=== PATIENT | female | born 1950 | race Caucasian/White ===

== ENCOUNTER 2017-11-27 12:37 | Outpatient (CLI) | payer MEDICARE ==
--- NOTE | 2017-11-27 13:59 | RAD ---
2 VIEWS RIGHT KNEE: Date: 11/27/17 INDICATION: Right knee pain. COMPARISON: None. FINDINGS: There is mild degenerative arthrosis involving the right knee. No acute fracture or subluxation is ev ident. IMPRESSION: No acute osseous abnormality. POS: [facility]
== END 2017-11-27 12:38 | disposition home or self-care (01) ==
LOC: RAD 12:37 → BICRAD 12:38
PROVIDERS: ATTEND Family Medicine
DX: M25.561 Pain in right knee (principal)

== ENCOUNTER 2018-02-26 13:30 | Outpatient (CLI) | payer MEDICARE ==
--- NOTE | 2018-02-26 15:52 | MRI ---
LUMBAR SPINE MRI NONCONTRAST: INDICATION: Low back pain with lumbar radiculopathy. FINDINGS: There is incidental note of a Schmorl's node at the superior end plate of T12. No acute marrow edema . Conus medullaris terminates at th eL1-2 level. Incidental note of a cyst at the right kidney. L5-S1: There is a disk-osteophyte with mild effacement of the ventral thecal sac. No significant ri ght foraminal narrowing. There is mild left foraminal stenosis due to asymmetric left degenerative f acet hypertrophy. L4-5: Moderate central canal stenosis as a result of broad-based disk-osteophyte. There is mild ag ateral neural foraminal narrowing. L3-4: Moderate central canal stenosis is present with crowding of the bilateral traversing L4 nerve roots. Mild bilateral neural foraminal narrowing present. L2-3: There is mild to moderate central canal stenosis due to broad-based disk-osteophyte. No high- grade neural foraminal compromise. L1-2: Mild narrowing of the central due to disk-osteophyte formation. There is no high-grade neural foraminal stenosis. Multilevel bilateral mild to moderate degenerative facet hypertrophy is present throughout the lumbar spine. IMPRESSION: Multilevel degenerative change of the lumbar spine is present, as outlined above. POS: [facility]
== END 2018-02-26 13:31 | disposition home or self-care (01) ==
LOC: BICMRI 13:30
PROVIDERS: ATTEND Family Medicine
DX: M47.896 Other spondylosis, lumbar region (principal)
CPT/HCPCS: 72148

== ENCOUNTER 2018-08-23 12:46 | Observation (INO) | payer MEDICARE ==
--- NOTE | 2018-08-23 13:54 | CT ---
CT Brain WO Con: 08/23/2018 1:29 PM CLINICAL HISTORY: Fall. IMAGING TECHNIQUE: Multiple CT images were obtained of the brain without IV contrast. COMPARISON: October 21, 2015 FINDINGS: Infarct: No acute infarct evident. Hemorrhage: None.. Hydrocephalus: None.. Basal cisterns: Normal.. Cerebral parenchyma: Stable mild chronic small vessel white matter ischemic change.. Midline shift: None.. Cerebellum: Normal. Brainstem: Normal. OTHER: Calvarium: Intact.. Visualized Paranasal sinuses: Clear.. Extracranial soft tissues:Normal. IMPRESSION: No acute intracranial abnormality.
--- NOTE | 2018-08-23 14:17 | RAD ---
Chest AP view INDICATION: Fall COMPARISON: October 21, 2015 FINDINGS: Lungs:The lungs are clear Cardiac silhouette pulmonary vasculature:The cardiomediastinal silhouette appears within normal limit s. Pleural spaces:No pleural effusion or pneumothorax is demonstrated. Upper abdomen:No abnormality seen. Osseous structures: No acute osseous abnormality. Additional findings:None. IMPRESSION: No acute cardiopulmonary abnormality.
--- NOTE | 2018-08-23 14:18 | RAD ---
EXAM: XR Pelvis AP STANDARD DATE: 08/23/2018 1:29 PM INDICATION: Fall COMPARISON: None. FINDING: There is moderate degenerative arthrosis of both hips. There is diffuse osteopenia. No acut e fracture or subluxation demonstrated. IMPRESSION:No acute fracture or subluxation demonstrated.
[2018-08-23 14:31] LABS: #Eosinphils 0.1 thou/uL (0.0-0.7); #Lymphocytes 1.6 thou/uL (1.20-3.40); #Monocytes 0.8 thou/uL (0.11-0.59); #Neutrophils 8.4 thou/uL (1.40-6.50); %Basophils 0.4 % (0.0-1.0); %Eosinophils 0.7 % (0.0-10.0); %Lymphocytes 14.4 % (21.0-51.0); %Monocytes 6.9 % (0.0-10.0); %Neutrophils 77.6 % (42.0-75.0); Hemoglobin 12.7 g/dL (12.0-16.0); Mean Corpuscular HGB CONC 31.6 g/dL (32.0-36.0); Mean Corpuscular Hemoglobin 29.5 pg (27.0-31.0); Mean Corpuscular Volume 93.2 fL (78.0-98.0); Mean Platelet Volume 6.5 fL (7.4-10.4); Platelet Count 262 thou/uL (130-400); RBC Distribution Width 12.1 % (11.5-14.5); Red Blood Cell (RBC) Count 4.31 mill/uL (4.20-5.40); White Blood Cell (WBC) Count 10.8 thou/uL (4.8-10.8)
[2018-08-23] MEDS ORDERED: Ondansetron PF 4 MG/2 ML Vial ONE ×2 (14:32→14:35)
[2018-08-23] MEDS ORDERED: Fentanyl 100 MCG/2 ML VIAL ONE ×2 (14:33)
[2018-08-23 14:47] LABS: ALT (SGPT) 18 U/L (8-55); AST (SGOT) 22 U/L (5-34); Alkaline Phosphatase 48 U/L (40-150); Anion Gap 12 mmol/L (10-20); BUN (Urea Nitrogen) 10 mg/dL (9.8-20.1); Bilirubin, Total 0.9 mg/dL (0.2-1.2); CK (CPK) 72 U/L (29-168); Calc. Creatinine Clearance 0 mL/min (70-130); Calcium 8.8 mg/dL (7.8-10.44); Carbon Dioxide 30 mmol/L (23-31); Chloride 101 mmol/L (98-107); Estimated GFR-MDRD 87; Globulin 2.1 g/dL (2.4-3.5); Glucose 94 mg/dL (80-115); Potassium 3.7 mmol/L (3.5-5.1); Protein, Total 6.1 g/dL (6.0-8.3); Sodium 139 mmol/L (136-145)
[2018-08-23] MEDS ORDERED: methylPREDNISolone Sod Succ/PF 125 MG/2 ML VIAL ONE (15:26)
[2018-08-23] MEDS ORDERED: Metoclopramide HCl 10 MG/2 ML VIAL ONE (15:27)
[2018-08-23] MEDS ORDERED: diphenhydrAMINE 50 MG/ML VIAL ONE (15:27)
[2018-08-23 18:00] LABS: Troponin I Less than 0.010 ng/mL (< 0.028)
[2018-08-23 18:18] VITALS: BMI 26.0
[2018-08-23] MEDS ORDERED: Ondansetron PF 4 MG/2 ML Vial IVP PRN (20:39)
[2018-08-23] MEDS ORDERED: Ondansetron ODT 4 MG TAB PO PRN (20:39)
[2018-08-23] MEDS ORDERED: Dextrose 5% in Water 1,000 ML IV PRN (20:39)
[2018-08-23] MEDS ORDERED: Dextrose 50% Abboject 50 ML SYRINGE SLOW IVP PRN (20:39)
--- NOTE | 2018-08-23 22:19 | ULT ---
BILATERAL CAROTID DUPLEX ULTRASOUND: HISTORY: Syncope TECHNIQUE: Grayscale, color-flow and spectral Doppler ultrasound imaging of the extracranial carotid artery syst ems was performed bilaterally. FINDINGS: Mild plaque formation. The peak systolic velocity in the right ICA measures 69 cm/s. The peak systolic velocity in the left ICA measures 67 cm/s. Vertebral flow: antegrade, bilaterally. IMPRESSION: No hemodynamically significant stenosis of Both ICAs.
[2018-08-23] MEDS: HYDROcodone/Acetaminophen 10/325 mg Tablet PO PRN (23:44)
[2018-08-23] MEDS: Famotidine 20 MG TAB PO SCH (23:44)
[2018-08-23] MEDS ORDERED: rOPINIRole HCl 1 MG TAB PO SCH (23:45)
--- NOTE | 2018-08-24 00:56 | HP ---
PRIMARY CARE PHYSICIAN: Cintia Garrison MD CHIEF COMPLAINT: Syncope. HISTORY OF PRESENT ILLNESS: Ms. Chase is a 68-year-old female, with past medical history of hypertension, hypoglycemia, hypothyroidism, osteoarthritis, and she had presented to [facility] earlier today after she experienced a syncopal episode at home. She states that she was standing there and all of a sudden she had found herself on the ground, she states that she has similar episodes over the last 5 to 6 years. She states that she has been worked up for this in the past and had denied any findings. She had denied any fever, chills, any chest pain, palpitations, shortness of breath, abdominal pain, nausea, vomiting, or any change in her stool. She states that this is the second time that she has fallen in the last week. She states this time she had fallen and hit her head, from which she has a noticeable size hematoma over the left eye. During her initial workup in the emergency department, brain CT showed mild stable chronic small-vessel white matter changes; however, no acute intracranial abnormality was noted. Portable chest x-ray was performed and showed no acute cardiopulmonary abnormality. She also complained of left hip pain. Therefore, a pelvic x-ray was done and showed no acute fracture or subluxation demonstrated. The patient's lab work was essentially unremarkable. Troponin was so far negative x2. She had remained in normal sinus rhythm on the monitor. She also had orthostatic vital signs checked and were unremarkable. REVIEW OF SYSTEMS: All other systems reviewed and found to be negative unless mentioned in the HPI. PAST MEDICAL HISTORY: Hypoglycemia, hypertension, hypothyroidism, status post thyroid cancer and radiation, osteoarthritis. PAST SURGICAL HISTORY: Gastric bypass, hiatal hernia surgery, cholecystectomy, thyroidectomy. PSYCHIATRIC HISTORY: Includes depression. SOCIAL HISTORY: The patient denies any alcohol, tobacco, or illicit drug use. KNOWN ALLERGIES: Morphine and NSAIDs. CURRENT HOME MEDICATIONS: 1. Omeprazole 20 mg oral daily. 2. Gabapentin 600 mg p.o. at bedtime. 3. Hydrocodone/acetaminophen 10/325 mg oral t.i.d. 4. Levothyroxine 112 mcg p.o. daily. 5. Amitiza p.o. daily. 6. Requip 1 mg p.o. q.p.m. 7. VESIcare 10 mg p.o. daily. 8. Venlafaxine 150 mg p.o. daily. PHYSICAL EXAMINATION: VITAL SIGNS: Blood pressure 133/63, pulse 93, respirations 16, temperature 98.9 degrees Fahrenheit, and O2 saturations 96% on room air. GENERAL: The patient is awake, alert, and oriented x3. She is currently lying comfortably in bed and in no acute distress at this time. Her is at bedside. HEENT: Normocephalic. Bruising noted above the left eye . Pupils are round and reactive to light. Extraocular muscles intact. Moist mucous membranes noted. NECK: Soft, supple. Trachea midline. CARDIOVASCULAR: Positive S1 and S2. Regular rate and rhythm. No murmur auscultated. RESPIRATORY: Clear to auscultation bilaterally. No wheezes, rales, or rhonchi. ABDOMEN: Soft, nontender. Bowel sounds present. MUSCULOSKELETAL: Strength 5+ bilaterally upper and lower extremities. Moves all extremities equal. No edema noted. The patient is slightly tender to palpation over left hip; however, this is just mild. NEUROLOGIC: Cranial nerves 2 through 12 grossly intact. No focal deficits noted. Speech intact and normal. Gait not assessed. SKIN: Warm, dry, and intact. Bruising noted to the left eye as stated above. PSYCHIATRIC: Good mood and affect. LABORATORY DATA: WBC 10.8, RBC 4.31, hemoglobin 12.7, platelet 262. Sodium 139, potassium 3.7, creatinine 0.68, estimated GFR 87, glucose 94. Troponin less than 0.010 x2. BNP 75.1. DIAGNOSTIC IMAGING: Portable chest x-ray showed no acute cardiopulmonary abnormality. CT of brain without contrast showed no acute intracranial abnormality and did show some stable mild chronic small-vessel white matter ischemic changes. X-ray pelvis showed no acute fracture or subluxation demonstrated. ASSESSMENT AND PLAN: 1. Syncope and fall, the patient will undergo further testing which includes an MRI of the brain, carotid Doppler, and an echocardiogram, Cardiology Services will be consulted as well for possible Holter monitor prior to discharge. The patient's orthostatic vital signs are unremarkable. 2. Hypothyroidism. Continue home dose of levothyroxine. We will check a TSH and free T4. 3. History of hypoglycemia. The patient will have frequent Accu-Cheks during the hospital course. 4. History of gastric bypass surgery. For this reason, we will check a folic acid, magnesium, vitamin B12, and other electrolytes. 5. Code status, full code. 6. Deep venous thrombosis and gastrointestinal prophylaxis. 7. Surrogate decision maker is her spouse, Alberto Caceres. DISPOSITION: Pending further workup and clinical findings. Job ID: [id number]
[2018-08-24 05:16] LABS: #Lymphocytes 1.3 thou/uL (1.20-3.40); #Monocytes 0.4 thou/uL (0.11-0.59); #Neutrophils 8.8 thou/uL (1.40-6.50); %Basophils 0.1 % (0.0-1.0); %Monocytes 3.4 % (0.0-10.0); %Neutrophils 84.4 % (42.0-75.0); Hemoglobin 12.4 g/dL (12.0-16.0); Mean Corpuscular HGB CONC 35.7 g/dL (32.0-36.0); Mean Corpuscular Hemoglobin 32.7 pg (27.0-31.0); Mean Corpuscular Volume 91.5 fL (78.0-98.0); Mean Platelet Volume 6.5 fL (7.4-10.4); Platelet Count 237 thou/uL (130-400); RBC Distribution Width 13.2 % (11.5-14.5); Red Blood Cell (RBC) Count 3.81 mill/uL (4.20-5.40); White Blood Cell (WBC) Count 10.4 thou/uL (4.8-10.8)
[2018-08-24 05:35] LABS: Anion Gap 10 mmol/L (10-20); BUN (Urea Nitrogen) 9 mg/dL (9.8-20.1); Calc. Creatinine Clearance 114 mL/min (70-130); Calcium 8.2 mg/dL (7.8-10.44); Carbon Dioxide 28 mmol/L (23-31); Chloride 105 mmol/L (98-107); Estimated GFR-MDRD Greater than 90; Glucose 139 mg/dL (80-115); Magnesium 2.2 mg/dL (1.6-2.6); Potassium 3.3 mmol/L (3.5-5.1); Sodium 140 mmol/L (136-145)
[2018-08-24] MEDS: Acetaminophen 325 MG TAB PO PRN ×2 (05:44→13:35)
[2018-08-24 05:56] LABS: Free T4 (Free Thyroxine) 1.27 ng/dL (0.70-1.48); Thyroid Stimulating Hormone Less than 0.0025 uIU/mL (0.35-4.94)
[2018-08-24] MEDS ORDERED: Levothyroxine Sodium 112 MCG TAB PO SCH (06:00)
[2018-08-24 06:09] LABS: Folate (Folic Acid) 9.1 ng/mL (7.0-31.4)
[2018-08-24] MEDS ORDERED: Venlafaxine HCl XR 150 MG CAP PO SCH (09:00)
[2018-08-24] MEDS ORDERED: Enoxaparin Sodium 40 MG/0.4 ML SYRINGE SC SCH (09:00)
[2018-08-24] MEDS ORDERED: Lubiprostone 24 MCG CAP PO SCH (09:00)
[2018-08-24] MEDS ORDERED: Trospium 20 MG TAB PO SCH (09:00)
[2018-08-24] MEDS: HYDROcodone/Acetaminophen 10/325 mg Tablet PO PRN (09:13)
[2018-08-24] MEDS: Famotidine 20 MG TAB PO SCH (09:13)
[2018-08-24] MEDS ORDERED: Potassium Chloride 20 MEQ TAB PO SCH (09:45)
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
[2018-08-24] MEDS ORDERED: levETIRAcetam 500 MG TAB PO SCH ×2 (11:00→21:00)
--- NOTE | 2018-08-24 11:19 | CON ---
DATE OF CONSULTATION: 08/24/2018 CONSULTING PHYSICIAN: Hospitalist Service. IMPRESSION: Probable seizures. PLAN: 1. Keppra 500 mg twice a day. 2. Office followup. HISTORY OF PRESENT ILLNESS: Ms. Chase is a 68-year-old white female, who reports having history of numerous episodes where she loses consciousness briefly. She has no prodromal sensation or aura. She is awoke on the floor and had no significant postictal confusion. She was worked up in [place] by a neurologist and thought to have focal seizures. She was started on Depakote, but did not tolerate it. She subsequently moved and was lost to follow up. She has gone as long as a year or more with between episodes. She had 2 recently, which is quite unusual. She was subsequently admitted for further evaluation. Her MRI of the brain is unremarkable. She has otherwise reports of intermittent spells, where her hands will jerk violently. She has also had some hypoglycemic episodes, which she has never lost consciousness from. PAST MEDICAL HISTORY: Otherwise negative. ALLERGIES: MORPHINE, NONSTEROIDALS. PAST SURGICAL HISTORY: Gastric bypass. MEDICATIONS: Medication list was reviewed. REVIEW OF SYSTEMS: Ten-system review of systems is otherwise unremarkable. PHYSICAL EXAMINATION: VITAL SIGNS: Blood pressure 113/71, pulse 100, respirations 14, saturations 98%. HEENT: Pupils equal. Conjunctivae clear. Oropharynx clear. Cranium, normocephalic and atraumatic. NECK: Supple. No lymphadenopathy. EXTREMITIES: No cyanosis or edema. NEUROLOGIC: She is alert and appropriate. Her speech is fluent and clear. Cranial nerves are intact. Motor exam showed good certified physical therapist assistant strength bilaterally. There is no tremor or dysmetria. Sensation is intact to touch. She can walk independently. SUMMARY: A 68-year-old woman with history of numerous episodes, where she suddenly loses consciousness. She has no cardiac history or metabolic issues that would produce a loss of consciousness. I strongly suspect that these are seizures. I will go ahead and start her on anticonvulsant therapy and follow up with her in the office. Job ID: [id number]
[2018-08-24 13:04] VITALS: BP 122/56; TEMP 97.7
--- NOTE | 2018-08-24 13:04 | MRI ---
MRI brain without IV contrast: Multiplanar and multisequential imaging of brain obtained according to protocol. INDICATIONS: Syncope. Loss of consciousness. Transient amnesia. COMPARISON: 11/03/2015 MRI of brain FINDINGS: Ventricles have normal size shape and position. No evidence of restricted diffusion. Mild chronic ischemic white matter change noted. Findings are stable from prior exam. No evidence of mass or edema. Intracranial internal carotid arteries, proximal cerebral arteries, and basilar arteries show normal flow voids. Dural venous sinuses appear patent. Visualized paranasal sinuses and mastoids appear clear. Orbits appear unremarkable. Bony calvarium and soft tissues of the scalp appear unremarkable. IMPRESSION: Mild chronic ischemic white matter change, stable from prior exam. No acute finding.
[2018-08-24] MEDS ORDERED: Gabapentin 300 MG CAP PO SCH (21:00)
[2018-08-24] MEDS ORDERED: rOPINIRole HCl 1 MG TAB PO SCH (21:00)
[2018-08-25] MEDS ORDERED: Non-Formulary Item 1 EACH (Omeprazole [Omeprazole] 20 MG) PO SCH (09:00)
--- NOTE | 2018-08-30 17:10 | EKG ---
Test Reason : Blood Pressure : / mmHG Vent. Rate : 089 BPM Atrial Rate : 089 BPM P-R Int : 154 ms QRS Dur : 086 ms QT Int : 406 ms P-R-T Axes : 036 -35 051 degrees QTc Int : 493 ms Normal sinus rhythm Left axis deviation Abnormal ECG Confirmed by VIRIDIANA ESTEBAN, YANETH ([id number]), city editor CARLA ARCE ([id number]) on 08/30/2018 5:09:42 PM Referred By: Confirmed By:YANETH KEMP MD
== END 2018-08-24 15:03 | disposition home or self-care (01) ==
LOC: ERS 12:46 → 2SW 18:09
PROVIDERS: ADMIT Internal Medicine; ATTEND Internal Medicine
DX: R55 Syncope and collapse (principal); S09.90XA Unspecified injury of head, initial encounter; E16.2 Hypoglycemia, unspecified; E03.9 Hypothyroidism, unspecified; I10 Essential (primary) hypertension; M19.90 Unspecified osteoarthritis, unspecified site; F32.9 Major depressive disorder, single episode, unspecified; Z98.84 Bariatric surgery status; Z88.5 Allergy status to narcotic agent; Z88.6 Allergy status to analgesic agent; Z79.899 Other long term (current) drug therapy; W19.XXXA Unspecified fall, initial encounter
CPT/HCPCS: 70450; 70551; 71045; 72170; 80048; 80053; 82550; 82607; 82746; 82962 ×2; 83735; 83880; 84439; 84443; 84484 ×2; 85025 ×2; 85379; 93005; 93306; 93880; 96372; 96374; 96375; 97139; 99285; G0378 ×3; 36415; 36416; J1200; J1650; J2405; J2765; J2930; J3010

== ENCOUNTER 2018-11-13 12:51 | Outpatient (CLI) | payer MEDICARE ==
--- NOTE | 2018-11-13 15:09 | MRI ---
MRI LUMBAR SPINE WITHOUT CONTRAST: INDICATIONS: Incontinence of bowel. Back pain. COMPARISON: MRI lumbar spine dated 02/26/2018. FINDINGS: Superior endplate deformity of the T12 vertebra, consistent with a Schmorl's node is again seen. This results in mild superior endplate compression of the T12 vertebra. This is a stable finding from the prior exam. The lumbar vertebrae maintain normal height and alignment and exhibit normal signal. Degenerative disk changes are seen at all levels of the lumbar spine. Disk spaces are relatively well preserved at L3-L4 and at L4-L5. Mild disk narrowing at the other levels. At L1-L2 mild disk bulge flattens the thecal sac. Mild facet hypertrophy. Mild central canal stenosis . At L2-L3 minimal disk bulge. Moderate facet and ligamentous hypertrophy. Mild central canal stenosis. At L3-L4 mild diffuse disk bulge. Moderate facet and ligamentous hypertrophy. Mild central canal sten osis. At L4-L5 mild diffuse disk bulge. Moderate facet and ligamentous hypertrophy. Mild central canal sten osis. Mild foraminal narrowing bilaterally due to facet hypertrophy. At L5-S1 small focal protrusion with broad-based bulge indents the anterior thecal sac. This is stabl e from the prior exam. Facet hypertrophy. Mild central canal stenosis. Left foraminal stenosis due to facet hypertrophy. IMPRESSION: Small focal protrusion at L5-S1 indents the anterior thecal sac. Left foraminal stenosis, which appea rs stable. Mild disk bulge at the other levels as described. No significant change from the prior exa mination. POS: [facility]
== END 2018-11-13 12:52 | disposition home or self-care (01) ==
LOC: SCSMRI 12:51
PROVIDERS: ATTEND Specialist
DX: M54.9 Dorsalgia, unspecified (principal); R15.9 Full incontinence of feces; M51.27 Other intervertebral disc displacement, lumbosacral region; M48.061 Spinal stenosis, lumbar region without neurogenic claudication
CPT/HCPCS: 72148

== ENCOUNTER 2018-12-05 13:31 | Outpatient (CLI) | payer MEDICARE ==
[2018-12-05 14:20] LABS: #Eosinphils 0.1 thou/uL (0.0-0.7); #Lymphocytes 2.1 thou/uL (1.20-3.40); #Monocytes 0.5 thou/uL (0.11-0.59); #Neutrophils 2.2 thou/uL (1.40-6.50); %Basophils 0.9 % (0.0-1.0); %Eosinophils 2.4 % (0.0-10.0); %Lymphocytes 42.8 % (21.0-51.0); %Monocytes 9.5 % (0.0-10.0); %Neutrophils 44.4 % (42.0-75.0); Hemoglobin 12.8 g/dL (12.0-16.0); Mean Corpuscular HGB CONC 32.7 g/dL (32.0-36.0); Mean Corpuscular Hemoglobin 30.5 pg (27.0-31.0); Mean Corpuscular Volume 93.2 fL (78.0-98.0); Mean Platelet Volume 6.6 fL (7.4-10.4); Platelet Count 244 thou/uL (130-400); RBC Distribution Width 12.4 % (11.5-14.5); Red Blood Cell (RBC) Count 4.19 mill/uL (4.20-5.40)
[2018-12-05 14:28] LABS: Hemoglobin A1c 5.2 % (4.0-6.0)
[2018-12-05 14:40] LABS: ALT (SGPT) 39 U/L (8-55); AST (SGOT) 48 U/L (5-34); Albumin 4.1 g/dL (3.4-4.8); Alkaline Phosphatase 60 U/L (40-110); Anion Gap 11 mmol/L (10-20); BUN (Urea Nitrogen) 13 mg/dL (9.8-20.1); Bilirubin, Total 0.8 mg/dL (0.2-1.2); Calc. Creatinine Clearance 0 mL/min (70-130); Calcium 8.7 mg/dL (7.8-10.44); Carbon Dioxide 29 mmol/L (23-31); Chloride 104 mmol/L (98-107); Estimated GFR-MDRD 84; Globulin 2.2 g/dL (2.4-3.5); Glucose 77 mg/dL (80-115); Potassium 4.2 mmol/L (3.5-5.1); Protein, Total 6.3 g/dL (6.0-8.3); Sodium 140 mmol/L (136-145)
== END 2018-12-05 13:32 | disposition home or self-care (01) ==
LOC: LABBT 13:31
PROVIDERS: ATTEND Specialist
DX: Z01.812 Encounter for preprocedural laboratory examination (principal); K56.2 Volvulus; R15.9 Full incontinence of feces; M48.00 Spinal stenosis, site unspecified; M54.9 Dorsalgia, unspecified
CPT/HCPCS: 80053; 83036; 85025

== ENCOUNTER 2018-12-05 14:00 | Inpatient (IN) | payer MEDICARE ==
[2018-12-05 14:18] VITALS: BMI 25.3
[2018-12-10] MEDS ORDERED: Fentanyl 100 MCG/2 ML VIAL ONE ×5 (08:40→15:23)
[2018-12-10] MEDS ORDERED: Midazolam HCl 2 mg/2 ml Vial ONE (08:40)
[2018-12-10] MEDS ORDERED: Dexamethasone 4 mg/ml Vial ONE (08:54)
[2018-12-10] MEDS ORDERED: Bupivacaine/Epinephrine 0.25% 30 ML VIAL ONE (09:18)
[2018-12-10] MEDS ORDERED: Sodium Chloride 0.9% 100 ML ONE (09:26)
[2018-12-10] MEDS ORDERED: Ketorolac Tromethamine 30 MG/ML VIAL ONE (09:26)
[2018-12-10] MEDS ORDERED: cefOXitin 2 GM VIAL ONE ×2 (09:26→13:29)
[2018-12-10] MEDS ORDERED: ePHEDrine/0.9% NaCl/PF SYRINGE 50 mg/10 ml ONE (11:21)
[2018-12-10] MEDS ORDERED: PROPOFOL 200 MG/20 ML VIAL ONE (11:21)
[2018-12-10] MEDS ORDERED: Glycopyrrolate 0.2 MG/ML 5 ML SYRINGE ONE (11:21)
[2018-12-10] MEDS ORDERED: Ondansetron PF 4 MG/2 ML Vial ONE (11:21)
[2018-12-10] MEDS ORDERED: Dexamethasone 20 MG/5 ML VIAL ONE (11:21)
[2018-12-10] MEDS ORDERED: Lidocaine 1% PF 5 ML VIAL ONE (11:21)
[2018-12-10] MEDS ORDERED: PHENYLEPHRINE-NS 100 MCG/ML 10 ML SYRINGE ONE (11:21)
[2018-12-10] MEDS ORDERED: Rocuronium Bromide 10 MG/ML (10ML VIAL) ONE (11:21)
[2018-12-10] MEDS ORDERED: Bupivacaine HCl 0.5%/Epinephrine 1:200,000/PF 30 ml Vial ONE (12:00)
[2018-12-10] MEDS ORDERED: hydrALAZINE 20 MG/ML VIAL SLOW IVP PRN (13:48)
[2018-12-10] MEDS ORDERED: Acetaminophen 500 MG TAB PO PRN (13:50)
[2018-12-10] MEDS ORDERED: Promethazine HCl 25 MG/ML VIAL IM PRN (14:08)
[2018-12-10] MEDS ORDERED: Ondansetron HCl/PF 4 MG/2 ML Vial IVP PRN (14:08)
[2018-12-10] MEDS ORDERED: Promethazine HCl 25 MG/ML VIAL SLOW IVP PRN (14:08)
[2018-12-10] MEDS ORDERED: Promethazine HCl 25 MG/ML VIAL ONE (14:27)
[2018-12-10] MEDS ORDERED: Sodium Chloride For Inhalation 0.9% 3 ML NEB ONE (14:27)
[2018-12-10] MEDS ORDERED: Tobramycin/Dexamethasone Ophth Oint 3.5 GM TUBE ONE (14:54)
[2018-12-10] MEDS ORDERED: D5 1/2 NS w/20 mEq KCL 1,000 ML ONE (15:29)
[2018-12-10] MEDS ORDERED: HYDROcodone/Acetaminophen 10/325 mg Tablet PO PRN (16:40)
[2018-12-10] MEDS ORDERED: Lubiprostone 24 MCG CAP PO PRN (16:41)
[2018-12-10] MEDS: Acetaminophen 1,000 MG in Premix Bag 1 BAG IVPB SCH ×2 (17:32→23:16)
[2018-12-10] MEDS: Cortisporin 1% Opth Oint 3.5 GM TUBE L EYE SCH (17:33)
[2018-12-10] MEDS: Ketorolac Tromethamine 30 MG/ML VIAL IVP SCH ×2 (17:33→23:16)
[2018-12-10] MEDS: D5 1/2 NS w/20 mEq KCL 1,000 ML IV SCH ×2 (17:39→20:10)
[2018-12-10] MEDS ORDERED: Triple Antibiotic Opth Oint 3.5 GM TUBE L EYE SCH (18:00)
[2018-12-10] MEDS ORDERED: Cortisporin 1% Opth Oint 3.5 GM TUBE L EYE SCH (18:00)
[2018-12-10] MEDS: Gabapentin 300 MG CAP PO SCH (20:09)
[2018-12-10] MEDS: levETIRAcetam 500 MG TAB PO SCH (20:09)
[2018-12-10] MEDS: Famotidine 20 MG TAB PO SCH (20:09)
[2018-12-10] MEDS: Morphine 4 MG/ML VIAL SLOW IVP PRN ×2 (20:10→23:17)
[2018-12-11] MEDS: Cortisporin 1% Opth Oint 3.5 GM TUBE L EYE SCH ×3 (00:44→11:31)
[2018-12-11 05:21] LABS: #Lymphocytes 1.1 thou/uL (1.20-3.40); #Monocytes 0.8 thou/uL (0.11-0.59); #Neutrophils 8.4 thou/uL (1.40-6.50); %Basophils 0.1 % (0.0-1.0); %Eosinophils 0.2 % (0.0-10.0); %Lymphocytes 10.5 % (21.0-51.0); %Neutrophils 81.2 % (42.0-75.0); Hemoglobin 11.4 g/dL (12.0-16.0); Mean Corpuscular HGB CONC 33.1 g/dL (32.0-36.0); Mean Corpuscular Hemoglobin 30.5 pg (27.0-31.0); Mean Corpuscular Volume 92.2 fL (78.0-98.0); Platelet Count 202 thou/uL (130-400); RBC Distribution Width 12.4 % (11.5-14.5); Red Blood Cell (RBC) Count 3.74 mill/uL (4.20-5.40); White Blood Cell (WBC) Count 10.3 thou/uL (4.8-10.8)
[2018-12-11] MEDS: Acetaminophen 1,000 MG in Premix Bag 1 BAG IVPB SCH ×2 (05:36→11:28)
[2018-12-11] MEDS: Morphine 4 MG/ML VIAL SLOW IVP PRN ×3 (05:36→15:20)
[2018-12-11] MEDS: Ketorolac Tromethamine 30 MG/ML VIAL IVP SCH ×3 (05:37→18:28)
[2018-12-11] MEDS: Levothyroxine Sodium 112 MCG TAB PO SCH (05:37)
[2018-12-11 05:41] LABS: Anion Gap 11 mmol/L (10-20); BUN (Urea Nitrogen) 8 mg/dL (9.8-20.1); Calc. Creatinine Clearance 100 mL/min (70-130); Calcium 7.8 mg/dL (7.8-10.44); Carbon Dioxide 26 mmol/L (23-31); Chloride 106 mmol/L (98-107); Estimated GFR-MDRD Greater than 90; Glucose 165 mg/dL (80-115); Potassium 4.3 mmol/L (3.5-5.1); Sodium 139 mmol/L (136-145)
[2018-12-11] MEDS: D5 1/2 NS w/20 mEq KCL 1,000 ML IV SCH ×2 (06:52→11:33)
[2018-12-11] MEDS: Famotidine 20 MG TAB PO SCH ×2 (08:41→20:25)
[2018-12-11] MEDS: Multivit, Therapeutic 1 TAB PO SCH (08:41)
[2018-12-11] MEDS: traMADol HCl 50 MG TAB PO PRN ×2 (08:42→13:27)
[2018-12-11] MEDS: levETIRAcetam 500 MG TAB PO SCH ×2 (08:42→20:25)
[2018-12-11] MEDS ORDERED: Enoxaparin Sodium 40 MG/0.4 ML SYRINGE SC SCH (09:00)
--- NOTE | 2018-12-11 09:19 | OP ---
DATE OF PROCEDURE: 12/10/2018 PREOPERATIVE DIAGNOSES: cecal bascule, fecal incontinence, intermittent. POSTOPERATIVE DIAGNOSES: cecal bascule, fecal incontinence, intermittent. PROCEDURE PERFORMED: Robotic laparoscopic right colectomy with primary anastomosis. ANESTHESIA: General, TAP block. ESTIMATED BLOOD LOSS: Less than 50 mL. DESCRIPTION OF PROCEDURE: The patient was taken to the operating room where under general anesthesia in supine position, abdomen was prepared with ChloraPrep and draped in routine fashion. Left lateral subcostal incision was made, an 8-mm port placed established pneumoperitoneum to 15 mmHg. Left paraumbilical incision was made, and 11 port placed, and robot camera placed, and all ports were placed under direct visualization. The left lateral lower quadrant incision was made, and another 8-mm port placed. Assist port 5 mm placed in the left lateral lower abdomen. The robot was docked. Robotic right colectomy undertaken. The right colon was mobilized. The right colon mesentery was incised, identifying the ileocolic vessels, dividing with vessel sealer. The dissection was carried up to the terminal ileum, which was dissected free. Dissection was carried up towards the transverse colon, identifying the duodenum, keeping the free of harm. Mesentery was serially divided carefully with using the vessel sealer. Dissection was carried out through transverse colon, hepatic flexure was very redundant. This made the operation difficult. Dissection was carried up to the septal portion of the proximal transverse colon, which was dissected free, divided with a TORREY stapler , 2 fires. Ileum divided with a TORREY stapler. The terminal ileum was then mated to the transverse colon with 2 sutures of 3-0 Vicryl allowing them for the anastomosis. Common ileotomy, colotomy made with the hot scissors and stapled anastomosis, completing the defect closed with continuous to and fro suture with 3-0 Stratafix. At this point, attention was then turned to removal of the specimen. It had been grasped through the assist port in the left lower abdomen laterally. The incision was made here, and a wound protector inserted and the colon removed, submitted to Pathology. Good hemostasis noted. The fascial defect closed within 2 layers with continuous suture of 1 PDS. Pneumoperitoneum reduced. Instrument count and needle counts were correct. All skin incisions were closed with interrupted subdermal 4-0 Monocryl and Sabattus glue applied. Job ID: [id number] [facility]
[2018-12-11] MEDS: Ondansetron PF 4 MG/2 ML Vial IVP PRN ×2 (13:59→21:54)
[2018-12-11] MEDS ORDERED: Lubiprostone 24 MCG CAP PO PRN (15:00)
--- NOTE | 2018-12-11 15:34 | PRG ---
DATE OF SERVICE: 12/11/2018 SUBJECTIVE: Forte was doing well today after robotic right colon resection. The patient postoperatively had a corneal abrasion. Dr. Walden saw her from Ophthalmology standpoint, placed a bandage contact. She feels much better, and pain is resolved. Dr. Walden will be seeing her today as an outpatient for that. Temperature 98.4 degrees, pulse 71, blood pressure 109/68. This morning, white count is 10 and hemoglobin 11.4. Basic metabolic profile is normal. The patient is urinating. She has passed some liquid stool. She is tolerating her diet. She is having some pain in her at right abdomen, it is controlled with oral analgesics. OBJECTIVE: LUNGS: Clear to auscultation. CARDIAC: Regular rhythm without murmur or gallop. ABDOMEN: Postoperative tenderness in right upper quadrant, right abdomen. Otherwise soft, good bowel sounds. EXTREMITIES: Unremarkable. ASSESSMENT AND PLAN: Status post right colon robotic resection for bascule. Continue full liquids. Begin a soft diet tomorrow. Hopefully, she will be able to be discharged home tomorrow and follow up with me in 2 to [address] Walden per his recommendations. Job ID: [id number]
[2018-12-11] MEDS: HYDROcodone/Acetaminophen 10/325 mg Tablet PO PRN (18:28)
[2018-12-11] MEDS: rOPINIRole HCl 1 MG TAB PO SCH (20:25)
[2018-12-11] MEDS: Gabapentin 300 MG CAP PO SCH (20:25)
[2018-12-11] MEDS ORDERED: Non-Formulary Item 1 EACH (Gabapentin [Gabapentin] 600 MG) PO SCH (21:00)
[2018-12-11] MEDS ORDERED: levETIRAcetam 500 MG TAB PO SCH (21:00)
[2018-12-12] MEDS: Ketorolac Tromethamine 30 MG/ML VIAL IVP SCH ×5 (00:46→23:58)
[2018-12-12] MEDS: HYDROcodone/Acetaminophen 10/325 mg Tablet PO PRN ×2 (02:56→11:43)
[2018-12-12] MEDS: Morphine 4 MG/ML VIAL SLOW IVP PRN ×3 (03:49→18:33)
[2018-12-12] MEDS: Ondansetron PF 4 MG/2 ML Vial IVP PRN ×3 (03:50→17:09)
[2018-12-12] MEDS: traMADol HCl 50 MG TAB PO PRN (06:27)
[2018-12-12] MEDS: Levothyroxine Sodium 112 MCG TAB PO SCH (06:28)
[2018-12-12 07:56] LABS: Hemoglobin 11.9 g/dL (12.0-16.0); Mean Corpuscular HGB CONC 31.4 g/dL (32.0-36.0); Mean Corpuscular Hemoglobin 29.2 pg (27.0-31.0); Mean Corpuscular Volume 92.8 fL (78.0-98.0); Mean Platelet Volume 7.2 fL (7.4-10.4); Platelet Count 237 thou/uL (130-400); RBC Distribution Width 12.7 % (11.5-14.5); Red Blood Cell (RBC) Count 4.08 mill/uL (4.20-5.40); White Blood Cell (WBC) Count 8.9 thou/uL (4.8-10.8)
[2018-12-12 08:16] LABS: Band 21 % (5-11); Lymphocytes 16 % (21-51); MDiff Complete? YES; Monocytes 7 % (0-10); Neutrophil 56 % (42-75); RBC Morphology Normal
[2018-12-12] MEDS: Enoxaparin Sodium 40 MG/0.4 ML SYRINGE SC SCH (08:55)
[2018-12-12] MEDS: Multivit, Therapeutic 1 TAB PO SCH (08:56)
[2018-12-12] MEDS: levETIRAcetam 500 MG TAB PO SCH (08:56)
[2018-12-12] MEDS: Famotidine 20 MG TAB PO SCH (08:56)
[2018-12-12] MEDS ORDERED: Stress 600 With Zinc 1 TAB PO SCH (09:00)
[2018-12-12] MEDS ORDERED: Non-Formulary Item 1 EACH (Multivitamin [Multi-Vitamin Daily] 1 TAB) PO SCH (09:00)
[2018-12-12] MEDS ORDERED: IRON CARB PO SCH (09:00)
[2018-12-12] MEDS ORDERED: LEVOTHYROXINE SODIUM 112 MCG PO SCH (09:00)
[2018-12-12] MEDS ORDERED: POTASSIUM PO SCH (09:00)
[2018-12-12] MEDS ORDERED: VIT B12 PO SCH (09:00)
[2018-12-12] MEDS ORDERED: FOLIC PO SCH (09:00)
[2018-12-12] MEDS ORDERED: Non-Formulary Item 1 EACH (Omeprazole [Omeprazole] 20 MG) PO SCH (09:00)
[2018-12-12] MEDS ORDERED: VIT C PO SCH (09:00)
[2018-12-12] MEDS ORDERED: Promethazine 25 MG TAB PO PRN (11:35)
[2018-12-12] MEDS ORDERED: Iopamidol 370 76% 50 ML VIAL FS ONE (12:00)
[2018-12-12] MEDS ORDERED: Iopamidol 370 76% 100 ML VIAL ONE (12:00)
[2018-12-12] MEDS ORDERED: Lactated Ringer's 1,000 ML IV SCH (13:30)
[2018-12-12] MEDS: Lactated Ringer's 1,000 ML IV SCH ×2 (14:47→21:25)
--- NOTE | 2018-12-12 16:23 | CT ---
CT Abdomen Pelvis W Con History: Recent colectomy. Right-sided pain. Evaluate for leak. Comparison: CT abdomen and pelvis 2017 Findings: Small right effusion. Mild compressive atelectasis both lung bases. Prior gastric surgery. Large sliding hiatal hernia. Mild fluid distention of the distal esophagus. Segment is emphysema along the left hemithorax and left to the abdomen. Air-fluid levels of the trans verse colon likely sequelae of ileus. Small volume of free intraperitoneal gas. Prior right hemicolectomy with small volume gas around the ileocolic anastomosis. There is no signifi cant fluid collection around the anastomosis. Small volume expected right paracolic gutter fluid and stranding. There is a mild intrahepatic and extrahepatic biliary dilatation. Common bile duct measures up to a c entimeter. There is a cyst superior pole right kidney. Spleen is unremarkable as well as the liver. Old superior endplate Schmorl's node of T12. No acute osseous abnormality. Impression: Expected postoperative findings without evidence of leak.
[2018-12-12] MEDS ORDERED: Acetaminophen 1,000 MG in Premix Bag 1 BAG IVPB PRN (17:16)
--- NOTE | 2018-12-12 17:36 | PRG ---
DATE OF SERVICE: 12/12/2018 SUBJECTIVE: Ms. Chase has done well today, although developed nausea and vomiting, had a temperature of 100.6 degrees at 06:47 and 03:26. She has been afebrile rest of the day. Heart rate is 94, respiratory rate 18. She has developed nausea and vomiting. Because of this, CBC was rechecked. White count was 8 and hemoglobin 11.9, stable, but she had 21% bands. The patient was seen, and she was having emesis and nausea. OBJECTIVE: LUNGS: Clear to auscultation. CARDIAC: Regular rate and rhythm without murmur or gallop. ABDOMEN: Soft with mild postoperative tenderness, but no rebound. No peritoneal signs. EXTREMITIES: Unremarkable. ASSESSMENT AND PLAN: 1. The patient has a low-grade fever, probably atelectasis. Her abdominal exam is relatively benign, but with her normal white count with a left shift and low-grade fever and her onset of nausea, we will check a CT scan of the abdomen and pelvis with rectal contrast and IV contrast, she cannot take oral because of her nausea. This CAT scan was obtained and revealed no evidence of leak using rectal contrast. The suture line was identified. She did have an ileus. The small bowel was not dilated proximal to the anastomosis. The patient is status post cholecystectomy, common bile duct was mildly dilated. 2. Bariatric surgery status with gastric bypass. 3. Status post right colectomy . There is no evidence of leak. We will make her n.p.o. except for ice chips. Restart IV fluids. Increase activity and reassess abdominal x-rays in the morning. Recheck her labs in the morning. Job ID: [id number]
[2018-12-12] MEDS: Acetaminophen 1,000 MG in Premix Bag 1 BAG IVPB SCH (18:33)
[2018-12-12] MEDS: rOPINIRole HCl 1 MG TAB PO SCH (21:04)
[2018-12-12] MEDS: Morphine 2 MG/ML SYRINGE SLOW IVP PRN (22:43)
[2018-12-13] MEDS: Acetaminophen 1,000 MG in Premix Bag 1 BAG IVPB SCH ×3 (00:01→11:31)
[2018-12-13] MEDS: Ondansetron PF 4 MG/2 ML Vial IVP PRN (03:31)
[2018-12-13] MEDS: Morphine 2 MG/ML SYRINGE SLOW IVP PRN ×2 (03:34→09:21)
[2018-12-13] MEDS: Lactated Ringer's 1,000 ML IV SCH ×2 (03:41→11:50)
[2018-12-13 04:45] LABS: #Eosinphils 0.1 thou/uL (0.0-0.7); #Lymphocytes 0.9 thou/uL (1.20-3.40); #Monocytes 0.3 thou/uL (0.11-0.59); #Neutrophils 4.6 thou/uL (1.40-6.50); %Basophils 0.2 % (0.0-1.0); %Lymphocytes 14.9 % (21.0-51.0); %Monocytes 4.4 % (0.0-10.0); %Neutrophils 78.4 % (42.0-75.0); Hemoglobin 10.5 g/dL (12.0-16.0); Mean Corpuscular HGB CONC 32.9 g/dL (32.0-36.0); Mean Corpuscular Hemoglobin 30.6 pg (27.0-31.0); Mean Platelet Volume 6.9 fL (7.4-10.4); Platelet Count 192 thou/uL (130-400); RBC Distribution Width 12.5 % (11.5-14.5); Red Blood Cell (RBC) Count 3.44 mill/uL (4.20-5.40); White Blood Cell (WBC) Count 5.9 thou/uL (4.8-10.8)
[2018-12-13 05:09] LABS: ALT (SGPT) 75 U/L (8-55); AST (SGOT) 47 U/L (5-34); Albumin 2.7 g/dL (3.4-4.8); Alkaline Phosphatase 72 U/L (40-110); Anion Gap 11 mmol/L (10-20); BUN (Urea Nitrogen) 11 mg/dL (9.8-20.1); Bilirubin, Total 2.6 mg/dL (0.2-1.2); Calc. Creatinine Clearance 102 mL/min (70-130); Calcium 8.2 mg/dL (7.8-10.44); Carbon Dioxide 27 mmol/L (23-31); Chloride 106 mmol/L (98-107); Estimated GFR-MDRD Greater than 90; Globulin 2.5 g/dL (2.4-3.5); Glucose 73 mg/dL (80-115); Potassium 3.5 mmol/L (3.5-5.1); Protein, Total 5.2 g/dL (6.0-8.3); Sodium 140 mmol/L (136-145)
[2018-12-13] MEDS: Ketorolac Tromethamine 30 MG/ML VIAL IVP SCH ×3 (06:17→17:29)
[2018-12-13] MEDS: Levothyroxine Sodium 112 MCG TAB PO SCH (06:26)
[2018-12-13] MEDS: Multivit, Therapeutic 1 TAB PO SCH (08:17)
[2018-12-13] MEDS: Enoxaparin Sodium 40 MG/0.4 ML SYRINGE SC SCH (08:17)
--- NOTE | 2018-12-13 10:11 | RAD ---
XR Chest Pa Lat STANDARD History: Postop fever Comparison: CT prior day Findings: Bibasilar atelectasis. No pneumothorax. Cardiac silhouette and mediastinal contours are wit hin normal limits. Small volume subcutaneous emphysema of the left lateral hemithorax. Impression: Bibasilar atelectasis.
--- NOTE | 2018-12-13 10:12 | RAD ---
XR Abdomen 2 View History: Ileus Comparison: CT examination prior day Findings: There continues to be mildly distended loops of small bowel without large bowel dilatation. Suture material right lower hemiabdomen. Known free air is not well seen on this exam. Impression: Postoperative ileus.
[2018-12-13] MEDS ORDERED: Dextrose 50% Abboject 50 ML SYRINGE SLOW IVP SCH (11:30)
[2018-12-13] MEDS: Morphine 4 MG/ML VIAL SLOW IVP PRN ×5 (11:39→23:45)
[2018-12-13] MEDS: Dextrose 5%-Lactated Ringers 1,000 ML IV SCH ×2 (11:45→17:44)
[2018-12-13] MEDS ORDERED: Acetaminophen 500 MG TAB PO PRN (18:00)
--- NOTE | 2018-12-13 21:28 | PRG ---
DATE OF SERVICE: 12/13/2018 SUBJECTIVE: Ms. Chase feels somewhat better today. She has not had any nausea or vomiting. She has not had any hiccups. Her abdominal pain has resolved. Her abdomen is still distended. She has not passed any flatus or stool, however. Abdominal x-rays revealed air-fluid levels, small bowel. I have reviewed the CAT scan yesterday with the radiologist again. The contrast enema did not reach the ileocolic anastomosis. There appears to be some edema at the ileocolic anastomosis. The ileum adjacent to the ileocolic anastomosis does not seem to be too distended. There is no evidence of mechanical obstruction and more the appearance of an ileus. White count today is 5.9, differential unremarkable. Hemoglobin 10.5. Basic metabolic profile normal. Glucose dropped to 56. She is changed to D5 LR. OBJECTIVE: LUNGS: Clear to auscultation. CARDIAC: Regular rate and rhythm without murmur or gallop. ABDOMEN: Soft, mild tympany. Mild distention. Surgical wounds look good. ASSESSMENT AND PLAN: 1. Ileus. Continue n.p.o. except for ice chips. Await bowel function return. Repeat abdominal x-rays in the morning. 2. Corneal abrasion, intraoperatively, Dr. Walden has seen. She has a bandage contact on and he will arrange followup. Job ID: [id number]
[2018-12-13] MEDS: rOPINIRole HCl 1 MG TAB PO SCH (21:45)
[2018-12-13] MEDS: Ketorolac Tromethamine 30 MG/ML VIAL IVP PRN (23:40)
[2018-12-14] MEDS: Dextrose 5%-Lactated Ringers 1,000 ML IV SCH ×4 (01:00→22:57)
[2018-12-14] MEDS: Morphine 4 MG/ML VIAL SLOW IVP PRN ×3 (03:27→10:45)
[2018-12-14] MEDS: Levothyroxine Sodium 112 MCG TAB PO SCH ×2 (05:57→08:23)
[2018-12-14] MEDS: Ketorolac Tromethamine 30 MG/ML VIAL IVP PRN (06:12)
--- NOTE | 2018-12-14 09:08 | RAD ---
XR Abdomen 2 View History: Ileus Comparison: Radiograph prior day Findings: Mild decreased gaseous distention of the small bowel. Mild gaseous extension of large bowel . Second venous emphysema left lateral hemithorax is similar. Mild bibasilar atelectasis. Impression: Mild decreased small bowel gaseous distention.
[2018-12-14] MEDS ORDERED: Refresh Lacri-lube Opth Oint 7 GM TUBE L EYE PRN (09:39)
[2018-12-14] MEDS: Multivit, Therapeutic 1 TAB PO SCH (10:40)
[2018-12-14] MEDS: Enoxaparin Sodium 40 MG/0.4 ML SYRINGE SC SCH (11:04)
[2018-12-14] MEDS ORDERED: Iopamidol 370 76% 50 ML VIAL FS ONE (12:00)
[2018-12-14] MEDS ORDERED: Iopamidol 370 76% 100 ML VIAL ONE (12:00)
[2018-12-14] MEDS ORDERED: PHENYLEPHRINE-NS 100 MCG/ML 10 ML SYRINGE ONE (12:37)
[2018-12-14] MEDS ORDERED: Rocuronium Bromide 10 MG/ML (10ML VIAL) ONE (12:37)
[2018-12-14] MEDS ORDERED: Lidocaine 1% PF 5 ML VIAL ONE (12:37)
[2018-12-14] MEDS ORDERED: PROPOFOL 200 MG/20 ML VIAL ONE (12:37)
[2018-12-14] MEDS: Morphine 2 MG/ML SYRINGE SLOW IVP PRN (15:39)
--- NOTE | 2018-12-14 16:31 | CT ---
CT Abdomen Pelvis W Con History: Concern for leak Comparison: CT 2 days prior Findings: There is small focus of signal gas axial image 58 adjacent to the suture. The amount of air along the right colon has slightly increased. There is also increased fluid along the right liver in the subsequent phrenic space with free air in the subphrenic space, new from the comparison exam. The right layering pleural effusion is increased. Impression: Findings concerning for a small leak at the anastomosis. Code CR: Dr. Wang 4at 4:25 PM
[2018-12-14] MEDS ORDERED: Fentanyl 100 MCG/2 ML VIAL ONE ×2 (19:05→19:32)
[2018-12-14] MEDS ORDERED: Phenylephrine HCL 10 MG/ML VIAL ONE (19:07)
--- NOTE | 2018-12-14 19:43 | RAD ---
CHEST ONE VIEW: HISTORY: Preop. COMPARISON: Chest radiograph from 12/13/2018. FINDINGS: There are atelectatic changes in both lung bases. No pneumothorax. Heart size is at the upper limits of normal. IMPRESSION: Bibasilar atelectasis. POS: HOME
[2018-12-14] MEDS ORDERED: Meperidine HCl/PF 25 MG/ML VIAL SLOW IVP PRN (20:30)
[2018-12-14] MEDS ORDERED: Promethazine HCl 25 MG/ML VIAL SLOW IVP PRN (20:30)
[2018-12-14] MEDS ORDERED: Promethazine HCl 25 MG/ML VIAL IM PRN (20:30)
[2018-12-14] MEDS ORDERED: HYDROmorphone 2 MG/ML VIAL SLOW IVP PRN (20:30)
[2018-12-14] MEDS ORDERED: Meropenem 2 GM in Sodium Chloride 0.9% 100 ML IVPB SCH (20:45)
--- NOTE | 2018-12-14 21:56 | PRG ---
DATE OF SERVICE: 12/14/2018 SUBJECTIVE: Ms. Chase today had a fever to 103 degrees. No labs were checked. OBJECTIVE: VITAL SIGNS: Heart rate 95, respiratory rate 14, blood pressure 115/70. GENERAL: She has not had any nausea or vomiting. She feels somewhat better. LUNGS: Clear to auscultation. CARDIAC: Regular rate and rhythm. No murmur or gallop. ABDOMEN: Soft. Mild tenderness in her upper abdomen. EXTREMITIES: Unremarkable. No stool, but has passed a small amount of flatus. ASSESSMENT AND PLAN: I am concerned about her fevers and her mild abdominal tenderness. We will repeat her CAT scan of the abdomen and pelvis with contrast today. By the time of this dictation this has been performed and this revealed a slight more amount of free air between the anastomosis in the right lobe of the liver. There is a small amount of fluid right in the right lobe of the liver, but not much. I have recommend laparotomy and evaluate the anastomosis with possible revision suspecting anastomotic leakage. She understands risks and benefits and consents. Job ID: [id number]
[2018-12-14] MEDS ORDERED: Acetaminophen 1,000 MG in Premix Bag 1 BAG IVPB PRN (22:12)
[2018-12-14] MEDS ORDERED: Ventilator Sedation Protocol 1 EACH FS SCH (22:15)
[2018-12-14] MEDS ORDERED: Morphine 2 MG/ML SYRINGE SLOW IVP PRN (22:17)
[2018-12-14] MEDS ORDERED: Propofol 1,000 MG/100 ML VIAL IV PRN (22:17)
[2018-12-14] MEDS ORDERED: Lorazepam 2 MG/ML VIAL SLOW IVP PRN (22:17)
[2018-12-14] MEDS ORDERED: Propofol BOLUS 1,000 MG/100 ML VIAL IV PRN (22:17)
[2018-12-14] MEDS ORDERED: fentaNYL Citrate/PF 2,000 MCG in Sodium Chloride 0.9% 60 ML IV SCH (22:17)
[2018-12-14] MEDS ORDERED: Fentanyl BOLUS 250 ML IVPB PRN (22:17)
[2018-12-14] MEDS ORDERED: DISCONTINUE PREVIOUS NARCOTIC PAIN MEDICATIONS AND BENZODIAZEPINES FS SCH (22:17)
--- NOTE | 2018-12-14 22:40 | RAD ---
XR Chest 1 View Portable HISTORY: Intubation. COMPARISON: Exam done earlier today. FINDINGS: A right subclavian line is present catheter tip overlying the right atrium. No signs of pne umothorax. Endotracheal tube is in satisfactory position. An NG tube is seen with the tip at the GE junction and should be advanced several inches. Parenchymal lung changes are stable. IMPRESSION: Endotracheal tube in satisfactory position. The NG tube needs to be advanced.
[2018-12-14 22:58] LABS: Actual Bicarbonate (HCO3a) 19.1 mEq/L (22-28); Base Excess (BEa) -3.5 mEq/L (-2.0 to +3.0); CO2 Tension 27.6 mmHg (35.0-45.0); Calcium, Ionized 1.08 mmol/L (1.12-1.30); Carboxyhemoglobin (COHb) 1.3 gm% (0.0-3.0); Hemoglobin (Hb) 11.7 g/dL (12.0-16.0); O2 Tension (PaO2) 114.2 mmHg (> 80.0); Potassium - ABG Lab 2.97 mmol/L (3.70-5.30); pH, Arterial 7.46 (7.35-7.45)
[2018-12-14 22:58] LABS: Hemoglobin 11.1 g/dL (12.0-16.0); Mean Corpuscular HGB CONC 33.5 g/dL (32.0-36.0); Mean Corpuscular Hemoglobin 30.6 pg (27.0-31.0); Mean Corpuscular Volume 91.5 fL (78.0-98.0); Mean Platelet Volume 6.7 fL (7.4-10.4); Platelet Count 202 thou/uL (130-400); RBC Distribution Width 12.8 % (11.5-14.5); Red Blood Cell (RBC) Count 3.62 mill/uL (4.20-5.40); White Blood Cell (WBC) Count 4.1 thou/uL (4.8-10.8)
[2018-12-14 23:01] LABS: Puncture Site LINE
[2018-12-14 23:13] LABS: Lymphocytes 14 % (21-51); MDiff Complete? YES; Monocytes 10 % (0-10); Neutrophil 76 % (42-75); Platelet Morphology Comment Appears Adequate
[2018-12-14] MEDS: rOPINIRole HCl 1 MG TAB PO SCH (23:22)
[2018-12-14] MEDS: Piperacillin/Tazobactam 4.5 GM in Sodium Chloride 0.9% 100 ML IVPB SCH (23:29)
--- NOTE | 2018-12-15 04:20 | OP ---
DATE OF PROCEDURE: 12/14/2018 PREOPERATIVE DIAGNOSES: Ileocolonic anastomotic leak, poor IV access, status post right colon resection for bascule. POSTOPERATIVE DIAGNOSES: Ileocolonic anastomotic leak, poor IV access, status post right colon resection for bascule. PROCEDURES PERFORMED: Laparotomy with ileocolic resection, revision of ileocolic anastomosis, resection of a segment of redundant colon, pulse irrigation of the abdominal cavity, #19 Gold JOCELYNN drain exiting right lower quadrant and the right gutter, and right subclavian vein triple-lumen catheter. ANESTHESIA: General. ESTIMATED BLOOD LOSS: 800 mL. BLOOD TRANSFUSION: 2 units of blood. DESCRIPTION OF PROCEDURE: The patient was taken to the operating room where under general anesthesia, the abdomen was prepared with ChloraPrep and draped in routine fashion. A midline incision was made and carried down though the skin, subcutaneous tissue, midline fascia, and abdominal cavity sharply. Bookwalter retractor was used. Abdominal cavity was fairly normal in appearance until I mobilized the ileocolic anastomosis and there was fecal material. This had been walled off. This was quickly evacuated. The ileum was identified and mesentery was divided with LigaSure and ileum divided with TORREY stapler to a new segment. The proximal transverse colon was mobilized. As I was mobilizing it, there was a tear in one of the mesenteric veins resulting in a significant amount of bleeding. This was carefully controlled under direct visualization with a 2-0 silk suture. Good hemostasis was noted. The patient's blood pressure was transiently low, but normalized with fluids and brief use of pressors, which were discontinued before the end of the case. The bowel looked healthy. Redundant another segment of the proximal transverse colon. Mesentery divided with the LigaSure up to a healthy segment of colon, which was divided with a TORREY stapler. The ileocolic anastomosis was performed with a single fire of the TORREY stapler and the common defect closed with staplers. Pulse irrigation was used in the right upper quadrant. A 19 Gold JOCELYNN drain was placed through a stab incision in the right lower quadrant, secured with 3-0 nylon suture. Mastisol and OpSite dressing applied. Irrigant evacuated. Good hemostasis was noted. Sponge and needle counts were correct. Midline fascia was closed with continuous suture of #1 PDS. Skin and subcutaneous tissues were pulse irrigated and the skin approximated loosely about the umbilicus with deo and wound VAC applied. Right subclavian vein triple-lumen catheter was placed using the Seldinger technique, secured with 3-0 nylon suture, removed the J-wire and aspirated each port with blood, and flushing with saline solution. The patient tolerated the procedure well. Job ID: [id number]
[2018-12-15] MEDS: Dextrose 5%-Lactated Ringers 1,000 ML IV SCH ×3 (04:55→08:24)
[2018-12-15 04:57] LABS: Anion Gap 12 mmol/L (10-20); BUN (Urea Nitrogen) 8 mg/dL (9.8-20.1); Calc. Creatinine Clearance 111 mL/min (70-130); Calcium 7.4 mg/dL (7.8-10.44); Carbon Dioxide 22 mmol/L (23-31); Chloride 106 mmol/L (98-107); Estimated GFR-MDRD Greater than 90; Glucose 172 mg/dL (80-115); Magnesium 1.5 mg/dL (1.6-2.6); Phosphorus 4.3 mg/dL (2.3-4.7); Sodium 137 mmol/L (136-145)
[2018-12-15 04:58] LABS: Band 33 % (5-11); Hemoglobin 10.9 g/dL (12.0-16.0); Lymphocytes 7 % (21-51); MDiff Complete? YES; Mean Corpuscular HGB CONC 33.9 g/dL (32.0-36.0); Mean Corpuscular Hemoglobin 30.6 pg (27.0-31.0); Mean Corpuscular Volume 90.3 fL (78.0-98.0); Monocytes 5 % (0-10); Neutrophil 55 % (42-75); Platelet Count 201 thou/uL (130-400); Platelet Morphology Comment Appears Adequate; RBC Distribution Width 12.9 % (11.5-14.5); Red Blood Cell (RBC) Count 3.57 mill/uL (4.20-5.40); White Blood Cell (WBC) Count 7.9 thou/uL (4.8-10.8)
[2018-12-15] MEDS: Piperacillin/Tazobactam 4.5 GM in Sodium Chloride 0.9% 100 ML IVPB SCH ×4 (06:12→23:01)
[2018-12-15] MEDS: Levothyroxine Sodium 112 MCG TAB PO SCH (06:21)
[2018-12-15 07:22] LABS: Actual Bicarbonate (HCO3a) 22.1 mEq/L (22-28); Base Excess (BEa) -1.4 mEq/L (-2.0 to +3.0); CO2 Tension 32.9 mmHg (35.0-45.0); Calcium, Ionized 1.04 mmol/L (1.12-1.30); Carboxyhemoglobin (COHb) 0.7 gm% (0.0-3.0); Hemoglobin (Hb) 11.3 g/dL (12.0-16.0); O2 Tension (PaO2) 89.8 mmHg (> 80.0); Potassium - ABG Lab 3.16 mmol/L (3.70-5.30); pH, Arterial 7.45 (7.35-7.45)
[2018-12-15 07:24] LABS: ALV-art Gradient 154.275 (0-20); Puncture Site ALINE
[2018-12-15] MEDS: Pantoprazole 40 MG VIAL IVP SCH (08:14)
[2018-12-15] MEDS: Enoxaparin Sodium 40 MG/0.4 ML SYRINGE SC SCH (09:05)
--- NOTE | 2018-12-15 09:15 | RAD ---
PORTABLE CHEST ONE VIEW: 12/15/2018 4:32 a.m. HISTORY: Respiratory failure. FINDINGS: No significant interval change is seen since the previous day's exam. POS: OFF
[2018-12-15 09:36] LABS: Actual Bicarbonate (HCO3a) 21.7 mEq/L (22-28); Analyzer IN Cardio OR; Base Excess (BEa) -1.4 mEq/L (-2.0 to +3.0); CO2 Tension 30.3 mmHg (35.0-45.0); Calcium, Ionized 0.98 mmol/L (1.12-1.30); Carboxyhemoglobin (COHb) 0.9 gm% (0.0-3.0); Hemoglobin (Hb) 8.8 g/dL (12.0-16.0); O2 Tension (PaO2) 150.4 mmHg (> 80.0); Potassium - ABG Lab 2.99 mmol/L (3.70-5.30); Puncture Site ALINE; pH, Arterial 7.47 (7.35-7.45)
[2018-12-15] MEDS ORDERED: Potassium Chloride 40 MEQ in Premix Bag 1 BAG IVPB SCH ×2 (11:00→16:00)
[2018-12-15] MEDS ORDERED: Multivitamins, Adult 10 ML, Folic Acid 1 MG, Thiamine HCl 100 MG in Dextrose 5 %-0.45 %... IV SCH (11:00)
[2018-12-15] MEDS ORDERED: Ketorolac Tromethamine 30 MG/ML VIAL IVP PRN (11:06)
[2018-12-15] MEDS ORDERED: Acetaminophen 1,000 MG in Premix Bag 1 BAG IVPB PRN (11:06)
--- NOTE | 2018-12-15 11:21 | PRG ---
DATE OF SERVICE: 12/15/2018 SUBJECTIVE: Ms. Forte was ventilated overnight, now is extubated this morning. She is doing well. She is awake and alert and appropriate. 97/55, heart rate 99, sats are good. NG tube is in place with NG tube output none over the 24 hours. She has a gastric bypass. Her NG tube was advanced a few inches last night. Since it is not putting out much and since she has had a prior gastric bypass, in order to prevent problems related to the NG tube, we will remove her NG tube. Her drain is serosanguineous, 120 mL postop. Huang 585. OBJECTIVE: LUNGS: Clear to auscultation. CARDIAC: Regular rate and rhythm without murmur or gallop. ABDOMEN: Soft, quiet. Midline wound VAC in place, had to be replaced this morning because of a leak. LABORATORY DATA: She had 2 units of blood yesterday, her hemoglobin this morning is 10.9, white count 7.9. Sodium 137, potassium 3.0, carbon dioxide 22, BUN 8, creatinine 0.58. ASSESSMENT AND PLAN: Status post right colectomy, robot, for bascule, and more recently, yesterday 12/14/2018 evening, laparotomy, ileocolic anastomosis, resection, revision, anastomosis, power irrigation of the abscess cavity, and drain placement. A central line was placed, it is in good position. We will plan to keep her n.p.o. except for sips and chips. We will remove her NG tube. Now that she is extubated, we will get her out of bed into a chair. We will ask Anesthesia to see her regarding a [employer]IST pump for pain control. We will observe her in the ICU today and transfer to the floor tomorrow. She is doing well. I will be out of town the next few days and have communicated that to the family. Job ID: [id number]
[2018-12-15] MEDS ORDERED: Dextrose 50% Abboject 50 ML SYRINGE SLOW IVP PRN (12:23)
[2018-12-15] MEDS ORDERED: Dextrose 5% in Water 1,000 ML IV PRN (12:23)
[2018-12-15] MEDS ORDERED: HumaLOG 300 UNITS/3 ML VIAL SC PRN (12:23)
[2018-12-15] MEDS ORDERED: Magnesium Sulfate 4 GM in Sodium Chloride 0.9% 250 ML 250 ML IVPB SCH (13:00)
[2018-12-15] MEDS ORDERED: Promethazine HCl 25 MG/ML VIAL IM PRN (13:40)
[2018-12-15] MEDS ORDERED: Naloxone HCl 0.4 mg/ml Vial IV PRN (13:40)
[2018-12-15] MEDS ORDERED: Zolpidem Tartrate 5 MG TAB PO PRN (13:40)
[2018-12-15] MEDS ORDERED: diphenhydrAMINE 25 MG CAP PO PRN (13:40)
[2018-12-15] MEDS ORDERED: diphenhydrAMINE 50 MG/ML VIAL IM/IV PRN (13:40)
[2018-12-15] MEDS ORDERED: Fentanyl 100 MCG/2 ML VIAL SLOW IVP SCH (13:45)
[2018-12-15] MEDS: fentaNYL Citrate/PF 2,000 MCG in Sodium Chloride 0.9% 60 ML IV PRN (14:52)
--- NOTE | 2018-12-15 17:16 | CON ---
DATE OF CONSULTATION: 12/15/2018 SERVICE: Pulmonary Medicine. REASON FOR CONSULTATION: ICU patient. HISTORY OF PRESENT ILLNESS: The patient is a 68-year-old white female with past medical history significant for a cecal volvulus. She was taken to the operating room and underwent a robotic surgery. Her postop course was complicated by a leak. She was taken back to the operating room. A JOCELYNN drain was placed, and she was otherwise closed. She is postop day #1 from her repeat procedure. She has complaints of discomfort. The anesthesia has been consulted to initiate the patient on a pain pump. Otherwise, she does not have any nausea or vomiting, but she is not passing gas and has not had any bowel movements today. She denies any fevers or chills. Otherwise, there are any other overnight events. PAST MEDICAL HISTORY: 1. Hypertension. 2. History of thyroid cancer, status post radiation. 3. Osteoarthritis. PAST SURGICAL HISTORY: 1. Gastric bypass surgery. 2. Tin fundoplication. 3. Cholecystectomy. 4. Thyroidectomy. 5. Partial colectomy for volvulus. 6. Laparotomy for anastomotic leak. SOCIAL HISTORY: Negative for alcohol, tobacco, or illicit drug use currently. She has no exposure to chemicals, dust, asbestos, or tuberculosis. FAMILY HISTORY: Noncontributory. ALLERGIES: MORPHINE, NSAIDS. MEDICATIONS: List of the patient's inpatient medications was reviewed. No specific updates were made at this time. REVIEW OF SYSTEMS: General; head, ears, eyes, nose, throat; cardiovascular; respiratory; GI; ; musculoskeletal; neurologic; and skin are negative except as mentioned in the HPI. PHYSICAL EXAMINATION: VITAL SIGNS: Afebrile, pulse 100, blood pressure 85/57, respirations 21, and saturation 95% currently on 3 L nasal cannula. GENERAL: The patient is awake and alert, in no apparent distress. LUNGS: Decent air entry. Extensive crackling is present. No prolonged expiratory phase or wheezing is appreciated. HEART: Normal rate and regular. ABDOMEN: Soft. Tender to palpation throughout. No rebound is appreciated. Bowel sounds are absent. : Huang catheter in place. NEUROLOGIC: Grossly nonfocal. LABORATORY DATA: WBC 7.9, hemoglobin 10.9, platelets 201,000. Band count is 33 % on top of 55% neutrophils. D-dimer 0.37. A pH 7.45, pCO2 of 32, pO2 of 98. Potassium 3.0. Basic metabolic profile is otherwise unremarkable. Magnesium 1.5 and phosphorus 3.4. IMAGIN. Chest x-ray demonstrates small right-sided effusion. Appears to be free- flowing. Pulmonary vascular congestion is noted. Otherwise, there is no acute cardiopulmonary abnormality. 2. CT of the abdomen and pelvis demonstrates small layering effusion on the right. She has findings concerning for an anastomotic leak. ASSESSMENT: 1. Acute hypoxic respiratory failure. 2. Small right-sided pleural effusion. 3. Gross peritonitis secondary to anastomotic leak. 4. Laparotomy, postop day #1. 5. Partial colectomy for volvulus, postop day #5. DISCUSSION AND PLAN: The patient is doing fine from respiratory standpoint. I will aggressively replace magnesium and potassium today. The patient is volume overloaded. As such, IV fluids will be minimized for the next 24 to 48 hours. When she diuresis down to euvolemia, we will start back up maintenance fluids. Critical Care will follow closely for the time being. 70 minutes have been devoted to this patient in various activities. I personally reviewed all imaging studies and laboratory data noted within this document. For fifty percent of this time, I was interacting with the patient at the bedside or coordinating care with the care team. For the remainder of the time I was immediately available to the patient in the hospital unit. Job ID: [id number] [facility]
[2018-12-15] MEDS: Acetaminophen 1,000 MG in Premix Bag 1 BAG IVPB SCH ×2 (18:04→23:01)
[2018-12-15] MEDS: Ketorolac Tromethamine 30 MG/ML VIAL IVP SCH ×2 (18:09→23:00)
[2018-12-15] MEDS: rOPINIRole HCl 1 MG TAB PO SCH (20:51)
[2018-12-15] MEDS: SODIUM CHLORIDE IV SCH (22:40)
[2018-12-15] MEDS: POTASSIUM CHLORIDE IV SCH (22:40)
[2018-12-15] MEDS: POTASSIUM ACETATE IV SCH (22:40)
[2018-12-15] MEDS: [UNRECOGNIZED DRUG - OTHER] IV SCH (22:40)
[2018-12-16] MEDS: Ketorolac Tromethamine 30 MG/ML VIAL IVP SCH ×3 (06:33→19:06)
[2018-12-16] MEDS: Levothyroxine Sodium 112 MCG TAB PO SCH (06:34)
[2018-12-16] MEDS: Acetaminophen 1,000 MG in Premix Bag 1 BAG IVPB SCH (06:34)
[2018-12-16] MEDS: Piperacillin/Tazobactam 4.5 GM in Sodium Chloride 0.9% 100 ML IVPB SCH ×3 (06:35→19:04)
[2018-12-16 07:39] LABS: ALT (SGPT) 28 U/L (8-55); AST (SGOT) 26 U/L (5-34); Albumin 1.9 g/dL (3.4-4.8); Alkaline Phosphatase 49 U/L (40-110); Anion Gap 9 mmol/L (10-20); BUN (Urea Nitrogen) 17 mg/dL (9.8-20.1); Bilirubin, Total 0.9 mg/dL (0.2-1.2); Calc. Creatinine Clearance 107 mL/min (70-130); Calcium 7.1 mg/dL (7.8-10.44); Carbon Dioxide 25 mmol/L (23-31); Chloride 107 mmol/L (98-107); Cholesterol 72 mg/dl (< 200 Desired); Estimated GFR-MDRD Greater than 90; Globulin 2.2 g/dL (2.4-3.5); Glucose 113 mg/dL (80-115); HDL Cholesterol Less than 8 mg/dL (>60 Neg Risk); Magnesium 2.7 mg/dL (1.6-2.6); Potassium 3.8 mmol/L (3.5-5.1); Protein, Total 4.1 g/dL (6.0-8.3); Sodium 137 mmol/L (136-145); Triglycerides 85 mg/dL (Less than 150)
[2018-12-16 07:45] LABS: Phosphorus 2.7 mg/dL (2.3-4.7)
[2018-12-16] MEDS ORDERED: Potassium Chloride 40 MEQ in Premix Bag 1 BAG IVPB SCH (08:30)
[2018-12-16] MEDS ORDERED: Lubiprostone 8 MCG CAP PO SCH (09:45)
[2018-12-16] MEDS ORDERED: Furosemide 20 MG/2 ML VIAL SLOW IVP SCH (10:00)
--- NOTE | 2018-12-16 10:02 | PRG ---
DATE OF SERVICE: 12/16/2018 SERVICE: Pulmonary Medicine. INTERVAL HISTORY: The patient is doing fine from Respiratory standpoint. Breathing comfortably. Denies any chest discomfort, nausea, or vomiting. Her shoulder discomfort has much improved. She has passed a little bit of gas this morning. She has not had a bowel movement, but indicates that without her Amitiza. She has no chance of having a bowel movement. PHYSICAL EXAMINATION: VITAL SIGNS: Afebrile, pulse 85, blood pressure 97/62, respirations 16, and saturation 98% on 2 L nasal cannula. GENERAL: The patient is awake and alert, in no apparent distress. LUNGS: Decent air entry. Dependent crackles are present. No prolonged expiratory phase or wheezing is appreciated. HEART: Normal rate, regular. ABDOMEN: Soft, nontender, and nondistended. Bowel sounds are positive. MUSCULOSKELETAL: No cyanosis or clubbing. No pitting in the bilateral lower extremities. NEUROLOGIC: Grossly nonfocal. LABORATORY DATA: WBC 7.9, hemoglobin 10.9, and platelets 201,000. Neutrophil count is 55% on top of 33% bands. Basic metabolic profile and liver function studies are essentially unremarkable. AST and ALT have returned to normal. Pre-albumin is below the assay limit of 5. Magnesium and phosphorus have been corrected. ASSESSMENT: 1. Acute hypoxic respiratory failure. 2. Small right-sided pleural effusion. 3. Gross peritonitis secondary to anastomotic leak. 4. Laparotomy, postop day #2. 5. Partial colectomy for volvulus, postop day #6. DISCUSSION AND PLAN: I will start the patient's Amitiza. I will give her a single dose of Lasix, and we will drop her total IV fluid rate to 100 and discontinue the D5 LR altogether. Pulmonary/Critical Care will continue to follow along for the time being. Job ID: [id number]
[2018-12-16] MEDS ORDERED: Acetaminophen 1,000 MG in Premix Bag 1 BAG IVPB PRN (10:31)
--- NOTE | 2018-12-16 10:44 | PRG ---
DATE OF SERVICE: 12/16/2018 SUBJECTIVE: Ms. Chase is doing well. She denies nausea. She has been out of bed in the room only. She remains on TPN. Her pain is well controlled. She is afebrile. Vital signs are stable. ASSESSMENT: Postop reexploration for anastomotic leak and repair by Dr. Wang, now doing well clinically. PLAN: Likely needs one more day of n.p.o. but encouraged ambulation. She has a walking program ordered. Job ID: [id number]
[2018-12-16] MEDS: Pantoprazole 40 MG VIAL IVP SCH (12:01)
[2018-12-16] MEDS: Potassium Chloride 20 MEQ in Premix Bag 1 BAG IVPB SCH ×2 (12:02→18:07)
[2018-12-16] MEDS ORDERED: Enoxaparin Sodium 40 MG/0.4 ML SYRINGE ONE (12:23)
[2018-12-16] MEDS: Enoxaparin Sodium 40 MG/0.4 ML SYRINGE SC SCH (13:23)
[2018-12-16] MEDS ORDERED: Potassium Chloride 20 MEQ in Premix Bag 1 BAG IVPB SCH (17:45)
[2018-12-16] MEDS: Sodium Chloride 0.9% 1,000 ML IV SCH (18:07)
[2018-12-16] MEDS: Lubiprostone 8 MCG CAP PO SCH (19:04)
[2018-12-16] MEDS: rOPINIRole HCl 1 MG TAB PO SCH (21:17)
[2018-12-16] MEDS: SODIUM CHLORIDE IV SCH (22:13)
[2018-12-16] MEDS: POTASSIUM ACETATE IV SCH (22:13)
[2018-12-16] MEDS: POTASSIUM CHLORIDE IV SCH (22:13)
[2018-12-16] MEDS: [UNRECOGNIZED DRUG - OTHER] IV SCH (22:13)
[2018-12-17] MEDS: Ketorolac Tromethamine 30 MG/ML VIAL IVP SCH ×2 (01:00→05:38)
[2018-12-17] MEDS: Piperacillin/Tazobactam 4.5 GM in Sodium Chloride 0.9% 100 ML IVPB SCH ×4 (01:00→17:40)
[2018-12-17] MEDS: fentaNYL Citrate/PF 2,000 MCG in Sodium Chloride 0.9% 60 ML IV PRN (01:30)
[2018-12-17] MEDS: Levothyroxine Sodium 112 MCG TAB PO SCH (05:39)
[2018-12-17] MEDS: Lubiprostone 8 MCG CAP PO SCH ×2 (09:30→15:40)
[2018-12-17] MEDS: Pantoprazole 40 MG VIAL IVP SCH (09:30)
--- NOTE | 2018-12-17 10:27 | PRG ---
DATE OF SERVICE: SUBJECTIVE: Ms. Chase is doing well. She denies nausea or vomiting or abdominal bloating. She is ambulatory. OBJECTIVE: VITAL SIGNS: She is afebrile. Vital signs are stable. ABDOMEN: Soft. She has occasional bowel sounds. Her midline wound is healing well. I saw it on wound VAC dressing change. JOCELYNN is serosanguineous. ASSESSMENT: Status post redo anastomosis for anastomotic leak. PLAN: Ileus resolving. Start clear liquids. Discontinue AUTHORIZER. Change to oral pain control. Job ID: [id number]
--- NOTE | 2018-12-17 10:29 | PRG ---
DATE OF SERVICE: 12/17/2018 SERVICE: Pulmonary Medicine. INTERVAL HISTORY: The patient is doing really well from respiratory standpoint. She is breathing comfortably. She is on room air. She has been able to walk with physical therapy. She has significant discomfort in her belly, but otherwise, she does not have any complaints of cough or shortness of breath when she gets around. PHYSICAL EXAMINATION: VITAL SIGNS: Afebrile, pulse 100, blood pressure 95/60, respirations 16, and saturation 93% on room air currently. GENERAL: The patient is awake and alert, in no apparent distress. LUNGS: Decent air entry. Dependent crackles are minimal. No prolonged expiratory phase or wheezing is appreciated. HEART: Normal rate. Regular. ABDOMEN: Soft, nontender, and nondistended. Bowel sounds are positive. MUSCULOSKELETAL: No cyanosis or clubbing. There is a 2+ pitting in the bilateral lower extremities, which is improving. NEUROLOGIC: Grossly nonfocal. LABORATORY DATA: Blood sugar ranges from 78 to 144. ASSESSMENT: 1. Acute hypoxic respiratory failure, resolved. 2. Pleural effusion on the right, previously small. 3. Gross peritonitis secondary to anastomotic leak. 4. Laparotomy, postop day 3. 5. Partial colectomy for volvulus, postop day #7. DISCUSSION AND PLAN: The patient is doing great from respiratory standpoint. It appears that she is likely going to be tolerating p.o. Once this happens, the PPN will be discontinued. At this point, she does not have any significant respiratory failure. I will discontinue our Lasix. We can watch her volume status closely and provide her with p.r.n. doses. Repeat laboratories will be performed tomorrow. She has no further requirements for inpatient Pulmonary/Critical Care opinion, and I will sign off. Please call with additional questions or concerns through time. Job ID: [id number]
[2018-12-17] MEDS: Enoxaparin Sodium 40 MG/0.4 ML SYRINGE SC SCH (12:13)
[2018-12-17] MEDS: Sodium Chloride 0.9% 1,000 ML IV SCH (14:58)
[2018-12-17] MEDS: HYDROcodone/Acetaminophen 7.5/325 mg Tablet PO PRN ×2 (14:58→21:07)
[2018-12-17] MEDS: Fentanyl 100 MCG/2 ML VIAL SLOW IVP PRN ×2 (15:38→20:00)
[2018-12-17] MEDS: rOPINIRole HCl 1 MG TAB PO SCH (21:07)
[2018-12-17] MEDS: SODIUM CHLORIDE IV SCH (22:13)
[2018-12-17] MEDS: POTASSIUM CHLORIDE IV SCH (22:13)
[2018-12-17] MEDS: POTASSIUM ACETATE IV SCH (22:13)
[2018-12-17] MEDS: [UNRECOGNIZED DRUG - OTHER] IV SCH (22:13)
[2018-12-18] MEDS: Piperacillin/Tazobactam 4.5 GM in Sodium Chloride 0.9% 100 ML IVPB SCH ×5 (00:08→23:48)
[2018-12-18] MEDS: Fentanyl 100 MCG/2 ML VIAL SLOW IVP PRN ×3 (03:15→20:04)
[2018-12-18] MEDS: HYDROcodone/Acetaminophen 7.5/325 mg Tablet PO PRN ×3 (04:33→22:03)
[2018-12-18 05:16] LABS: ALT (SGPT) 32 U/L (8-55); AST (SGOT) 49 U/L (5-34); Albumin 2.2 g/dL (3.4-4.8); Alkaline Phosphatase 135 U/L (40-110); Anion Gap 9 mmol/L (10-20); BUN (Urea Nitrogen) 16 mg/dL (9.8-20.1); Calc. Creatinine Clearance 113 mL/min (70-130); Calcium 7.4 mg/dL (7.8-10.44); Carbon Dioxide 24 mmol/L (23-31); Chloride 106 mmol/L (98-107); Estimated GFR-MDRD Greater than 90; Globulin 2.7 g/dL (2.4-3.5); Glucose 70 mg/dL (80-115); Phosphorus Less than 1.0 mg/dL (2.3-4.7); Potassium 4.4 mmol/L (3.5-5.1); Protein, Total 4.9 g/dL (6.0-8.3); Sodium 135 mmol/L (136-145)
[2018-12-18] MEDS: Levothyroxine Sodium 112 MCG TAB PO SCH (06:02)
[2018-12-18] MEDS ORDERED: Potassium Phosphate 30 MMOL in Sodium Chloride 0.9% 500 ML IVPB SCH (07:00)
[2018-12-18] MEDS: Lubiprostone 8 MCG CAP PO SCH (08:52)
[2018-12-18] MEDS: Pantoprazole 40 MG VIAL IVP SCH (09:01)
--- NOTE | 2018-12-18 10:21 | PRG ---
DATE OF SERVICE: 12/18/2018 SUBJECTIVE: Ms. Chase was up all night. She had multiple bowel movements and urinated multiple times. She denies nausea. Tolerating the clear liquids without difficulty. OBJECTIVE: VITAL SIGNS: She is afebrile. Vital signs are stable. ABDOMEN: Soft. Wound VAC. She has active bowel sounds. LABORATORY DATA: Her phosphorus was low. ASSESSMENT: Postop reexploration, washout, redo anastomosis. PLAN: We will let her do a GI soft diet. Replete her phosphorus. Recheck labs in the morning. Job ID: [id number]
[2018-12-18] MEDS: Enoxaparin Sodium 40 MG/0.4 ML SYRINGE SC SCH (12:00)
[2018-12-18] MEDS: Sodium Chloride 0.9% 1,000 ML IV SCH (15:02)
[2018-12-18] MEDS: rOPINIRole HCl 1 MG TAB PO SCH (20:18)
[2018-12-18] MEDS: POTASSIUM ACETATE IV SCH (22:04)
[2018-12-18] MEDS: [UNRECOGNIZED DRUG - OTHER] IV SCH (22:04)
[2018-12-18] MEDS: POTASSIUM CHLORIDE IV SCH (22:04)
[2018-12-18] MEDS: SODIUM CHLORIDE IV SCH (22:04)
[2018-12-18 23:02] LABS: Bacteria/HPF None Seen HPF (None Seen); Bilirubin Negative (Negative); Blood, Urine Negative (Negative); Clarity Clear (Clear); Glucose, Urine (Dipstick) Normal (Negative); Leukocyte Negative Leu/uL (Negative); Nitrite Negative (Negative); Protein, Urine (Dipstick) Negative (Neg-Trace); RBC/HPF 0-3 HPF (0-3); Squamous Epithelial None Seen HPF (0-3); Urobilinogen Normal mg/dL (Less than 2); WBC/HPF 0-3 HPF (0-3)
[2018-12-19] MEDS: Fentanyl 100 MCG/2 ML VIAL SLOW IVP PRN ×4 (00:01→21:58)
[2018-12-19] MEDS: HYDROcodone/Acetaminophen 7.5/325 mg Tablet PO PRN (04:02)
[2018-12-19 04:29] LABS: #Eosinphils 0.2 thou/uL (0.0-0.7); #Lymphocytes 1.6 thou/uL (1.20-3.40); #Monocytes 1.1 thou/uL (0.11-0.59); #Neutrophils 7.9 thou/uL (1.40-6.50); %Basophils 0.4 % (0.0-1.0); %Eosinophils 1.4 % (0.0-10.0); %Lymphocytes 14.4 % (21.0-51.0); %Neutrophils 73.8 % (42.0-75.0); Hemoglobin 7.7 g/dL (12.0-16.0); Mean Corpuscular HGB CONC 32.2 g/dL (32.0-36.0); Mean Corpuscular Hemoglobin 30.4 pg (27.0-31.0); Mean Corpuscular Volume 94.5 fL (78.0-98.0); Mean Platelet Volume 7.2 fL (7.4-10.4); Platelet Count 337 thou/uL (130-400); RBC Distribution Width 13.8 % (11.5-14.5); Red Blood Cell (RBC) Count 2.53 mill/uL (4.20-5.40); White Blood Cell (WBC) Count 10.7 thou/uL (4.8-10.8)
[2018-12-19 04:44] LABS: Anion Gap 10 mmol/L (10-20); BUN (Urea Nitrogen) 12 mg/dL (9.8-20.1); Calc. Creatinine Clearance 123 mL/min (70-130); Calcium 7.3 mg/dL (7.8-10.44); Carbon Dioxide 24 mmol/L (23-31); Chloride 107 mmol/L (98-107); Estimated GFR-MDRD Greater than 90; Glucose 77 mg/dL (80-115); Phosphorus 2.4 mg/dL (2.3-4.7); Potassium 4.3 mmol/L (3.5-5.1); Sodium 137 mmol/L (136-145)
[2018-12-19] MEDS: Levothyroxine Sodium 112 MCG TAB PO SCH (05:40)
[2018-12-19] MEDS: Piperacillin/Tazobactam 4.5 GM in Sodium Chloride 0.9% 100 ML IVPB SCH ×3 (05:40→18:30)
[2018-12-19] MEDS: Enoxaparin Sodium 40 MG/0.4 ML SYRINGE SC SCH (09:11)
[2018-12-19] MEDS: Pantoprazole 40 MG VIAL IVP SCH (09:13)
[2018-12-19] MEDS: Ondansetron PF 4 MG/2 ML Vial IVP PRN (09:13)
--- NOTE | 2018-12-19 09:39 | PRG ---
DATE OF SERVICE: 12/19/2018 SUBJECTIVE: Ms. Chase is complaining of more cramping in the right abdomen today. OBJECTIVE: VITAL SIGNS: She is afebrile and her vital signs are stable. ABDOMEN: Soft. It is tender just to the right of her midline incision, otherwise soft. She has active bowel sounds. Her wound VAC is in place. EXTREMITIES: She has mild swelling to bilateral lower extremities. LABORATORY DATA: Her white blood cell count is 10, hemoglobin 7.7, platelet count is 337. Creatinine is 0.52. Her phos is normal today at 2.4, mag is 2.0. ASSESSMENT AND PLAN: Overall doing well. She is limited physically. Will have Physical Therapy see her. She does not like swallowing the pills, so I put her on Lortab Elixir. Assuming she does well with her diet today, likely discontinue the TPN tomorrow. Job ID: [id number]
[2018-12-19] MEDS: Hydrocodone-Acetamin 15 ML UDCUP PO PRN ×2 (10:52→18:33)
[2018-12-19] MEDS: Sodium Chloride 0.9% 1,000 ML IV SCH (13:00)
[2018-12-19] MEDS ORDERED: Furosemide 20 MG/2 ML VIAL SLOW IVP SCH (14:15)
[2018-12-19] MEDS: rOPINIRole HCl 1 MG TAB PO SCH (20:41)
[2018-12-19] MEDS: POTASSIUM ACETATE IV SCH (22:02)
[2018-12-19] MEDS: SODIUM CHLORIDE IV SCH (22:02)
[2018-12-19] MEDS: [UNRECOGNIZED DRUG - OTHER] IV SCH (22:02)
[2018-12-19] MEDS: POTASSIUM CHLORIDE IV SCH (22:02)
[2018-12-20] MEDS: Piperacillin/Tazobactam 4.5 GM in Sodium Chloride 0.9% 100 ML IVPB SCH ×4 (00:06→18:39)
[2018-12-20] MEDS: Sodium Chloride 0.9% 1,000 ML IV SCH (00:06)
[2018-12-20] MEDS: Hydrocodone-Acetamin 15 ML UDCUP PO PRN ×2 (00:48→07:44)
[2018-12-20] MEDS: Fentanyl 100 MCG/2 ML VIAL SLOW IVP PRN ×2 (04:26→08:58)
[2018-12-20] MEDS: Levothyroxine Sodium 112 MCG TAB PO SCH (05:18)
[2018-12-20] MEDS: Pantoprazole 40 MG VIAL IVP SCH (07:56)
[2018-12-20] MEDS: Ondansetron PF 4 MG/2 ML Vial IVP PRN (07:56)
[2018-12-20] MEDS: Enoxaparin Sodium 40 MG/0.4 ML SYRINGE SC SCH (09:08)
[2018-12-20] MEDS ORDERED: Sodium Chloride 0.9% 500 ML IV SCH (09:45)
--- NOTE | 2018-12-20 09:58 | PRG ---
DATE OF SERVICE: 12/20/2018 SUBJECTIVE: The patient says that they tried to give her some liquid Friedens, and it made her very sick and sharp vomiting and now is complaining of increased abdominal pain. She has not passed anything out her bottom. She was given 50 of fentanyl, and it only barely touched her pain. PHYSICAL EXAMINATION: VITAL SIGNS: Her temperature is 98.7; her heart rate went up to 112, was down to 103; and blood pressure is 105/53. GENERAL: She is awake, alert. She does not look comfortable. LUNGS: Clear. ABDOMEN: Soft. Tender along the right side. The wound VAC looks good. : Urine output was a little bit dark. Volume was not recorded. She has had about 370 out of the JOCELYNN drain at serous in appearance. ASSESSMENT: Ileus, nausea, and vomiting. PLAN: We will go back to n.p.o. We will give her maintenance IV fluid. She requests a [employer] SPECIALIST pump, so she can ambulate. We will ask Anesthesia. Job ID: [id number]
[2018-12-20] MEDS ORDERED: Zolpidem Tartrate 5 MG TAB PO PRN (10:13)
[2018-12-20] MEDS ORDERED: diphenhydrAMINE 50 MG/ML VIAL IVP PRN (10:13)
[2018-12-20] MEDS ORDERED: Promethazine HCl 25 MG/ML VIAL IM PRN (10:13)
[2018-12-20] MEDS ORDERED: diphenhydrAMINE 25 MG CAP PO PRN (10:13)
[2018-12-20] MEDS ORDERED: diphenhydrAMINE 50 MG/ML VIAL IM PRN (10:13)
[2018-12-20] MEDS ORDERED: Naloxone HCl 0.4 mg/ml Vial IV PRN (10:13)
[2018-12-20] MEDS ORDERED: Ondansetron PF 4 MG/2 ML Vial IVP PRN (10:13)
[2018-12-20] MEDS ORDERED: Communication Order-Pharmacy FS SCH (10:15)
[2018-12-20] MEDS: fentaNYL Citrate/PF 2,000 MCG in Sodium Chloride 0.9% 60 ML IV PRN (10:55)
[2018-12-20] MEDS: D5 1/2 NS w/20 mEq KCL 1,000 ML IV SCH (11:35)
[2018-12-20] MEDS ORDERED: Iopamidol-370 76% 500 ML 1 ML ONE (16:44)
[2018-12-20] MEDS ORDERED: Acetaminophen 1,000 MG in Premix Bag 1 BAG IVPB PRN (16:58)
--- NOTE | 2018-12-20 18:12 | CT ---
EXAM: CT Abdomen Pelvis W Con PROVIDED CLINICAL HISTORY: Abdominal pain and fever COMPARISON: 12/14/2018 FINDINGS: There is bilateral pleural fluid and right basilar consolidation partially visualized. There is interval development of a large area of circumscribed fluid density situated between the dom e of the right hemidiaphragm the right liver upon which it produces mass effect. This measures about 1.3 x 1.4 cm in greatest transverse dimensions and measures about 11.2 cm in greatest craniocau reagan dimension. There are several foci of internal gas seen. There is a 3.8 cm elliptical fluid collection rim enhancement seen involving the expected location of the peritoneum subjacent to the cranial rectus musculature just medial to the sixth of right costochondral cartilage. On the coronal images, this demonstrates contiguity with the larger describe d fluid collection The solid abdominal organs demonstrate an otherwise unremarkable stable CT appearance. There is no ev idence for free intraperitoneal fluid. There is no evidence for bowel obstruction. A percutaneous drain is noted within the right paracolic gutter region. There is a small amount of adjacent free gas . The osseous structures demonstrate no acute findings. Scattered vascular calcifications are seen. IMPRESSION: 1. Development of subdiaphragmatic fluid collection as described. 2. Gas adjacent to the tip of the drainage catheter, which may be responsible etiology. 3. Bilateral pleural effusions with adjacent atelectasis and/or pneumonia.
[2018-12-20] MEDS: rOPINIRole HCl 1 MG TAB PO SCH (22:09)
[2018-12-20] MEDS: SODIUM CHLORIDE IV SCH (22:44)
[2018-12-20] MEDS: SODIUM ACETATE IV SCH (22:44)
[2018-12-20] MEDS: [UNRECOGNIZED DRUG - OTHER] IV SCH (22:44)
[2018-12-20] MEDS: POTASSIUM CHLORIDE IV SCH (22:44)
[2018-12-21] MEDS: Piperacillin/Tazobactam 4.5 GM in Sodium Chloride 0.9% 100 ML IVPB SCH ×5 (00:04→23:06)
[2018-12-21] MEDS: fentaNYL Citrate/PF 2,000 MCG in Sodium Chloride 0.9% 60 ML IV PRN ×2 (01:35→18:33)
[2018-12-21] MEDS: Levothyroxine Sodium 112 MCG TAB PO SCH (05:27)
[2018-12-21] MEDS: Pantoprazole 40 MG VIAL IVP SCH (09:53)
[2018-12-21] MEDS: D5 1/2 NS w/20 mEq KCL 1,000 ML IV SCH (09:53)
[2018-12-21] MEDS: Enoxaparin Sodium 40 MG/0.4 ML SYRINGE SC SCH (09:56)
[2018-12-21] MEDS ORDERED: Furosemide 20 MG/2 ML VIAL SLOW IVP SCH (13:30)
--- NOTE | 2018-12-21 13:59 | PRG ---
DATE OF SERVICE: 12/21/2018 SUBJECTIVE: The patient says she feels a lot better today. DOCK PUMPER really helps and allows her to get up and move around. The pain is well controlled. She is asking for something by mouth. She denies any nausea or vomiting. She is passing some liquid stool. OBJECTIVE: VITAL SIGNS: Yesterday, she had a temperature of 101.9, so a CT scan was checked. Currently, she is afebrile, pulse is 94, and blood pressure 107/67. GENERAL: On exam, she looks much more comfortable. ABDOMEN: Soft, nondistended, and nontender. She has a JOCELYNN drain draining serous fluid from the right side. She has a CT that showed a fluid collection near the liver that is 1.3 x 1.4 cm x 11 cm. LABORATORY DATA: Her glucose is 99. She does have some peripheral edema. ASSESSMENT: Fluid collection that possibly is communicating with the current JOCELYNN drain. She does not show any signs of infection at this time. She seems to be getting better. PLAN: We will give her some Lasix. We will go and start some clear liquids and adjust down her maintenance IV. We will check lab. Job ID: [id number]
[2018-12-21] MEDS: Sodium Chloride 0.9% 1,000 ML IV SCH (14:39)
[2018-12-21] MEDS: rOPINIRole HCl 1 MG TAB PO SCH (21:43)
[2018-12-21] MEDS: POTASSIUM CHLORIDE IV SCH (21:57)
[2018-12-21] MEDS: [UNRECOGNIZED DRUG - OTHER] IV SCH (21:57)
[2018-12-21] MEDS: SODIUM CHLORIDE IV SCH (21:57)
[2018-12-21] MEDS: SODIUM ACETATE IV SCH (21:57)
[2018-12-22] MEDS: Levothyroxine Sodium 112 MCG TAB PO SCH (05:23)
[2018-12-22] MEDS: Piperacillin/Tazobactam 4.5 GM in Sodium Chloride 0.9% 100 ML IVPB SCH ×3 (05:23→18:35)
[2018-12-22 06:41] LABS: #Eosinphils 0.1 thou/uL (0.0-0.7); #Lymphocytes 1.4 thou/uL (1.20-3.40); #Monocytes 1.4 thou/uL (0.11-0.59); #Neutrophils 16.7 thou/uL (1.40-6.50); %Basophils 0.2 % (0.0-1.0); %Eosinophils 0.4 % (0.0-10.0); %Lymphocytes 7.1 % (21.0-51.0); %Monocytes 7.2 % (0.0-10.0); %Neutrophils 85.1 % (42.0-75.0); Anion Gap 11 mmol/L (10-20); BUN (Urea Nitrogen) 19 mg/dL (9.8-20.1); Calc. Creatinine Clearance 105 mL/min (70-130); Calcium 7.3 mg/dL (7.8-10.44); Carbon Dioxide 19 mmol/L (23-31); Chloride 107 mmol/L (98-107); Estimated GFR-MDRD Greater than 90; Glucose 80 mg/dL (80-115); Hemoglobin 7.2 g/dL (12.0-16.0); Mean Corpuscular Hemoglobin 31.2 pg (27.0-31.0); Mean Corpuscular Volume 94.4 fL (78.0-98.0); Mean Platelet Volume 7.8 fL (7.4-10.4); Platelet Count 482 thou/uL (130-400); RBC Distribution Width 13.7 % (11.5-14.5); Red Blood Cell (RBC) Count 2.31 mill/uL (4.20-5.40); Sodium 133 mmol/L (136-145); White Blood Cell (WBC) Count 19.6 thou/uL (4.8-10.8)
[2018-12-22] MEDS: Pantoprazole 40 MG VIAL IVP SCH (08:38)
[2018-12-22] MEDS: Enoxaparin Sodium 40 MG/0.4 ML SYRINGE SC SCH (08:38)
[2018-12-22] MEDS ORDERED: traMADol HCl 50 MG TAB PO PRN (11:12)
[2018-12-22] MEDS ORDERED: Acetaminophen 500 MG TAB PO PRN (11:12)
--- NOTE | 2018-12-22 12:22 | PRG ---
DATE OF SERVICE: 12/22/2018 SUBJECTIVE: Forte is doing well today. Her wound looks excellent, is granulating in the upper and lower portion. The tunneling beneath the midportion has resolved. There is no evidence of infection. Temperature 99.8 degrees, pulse 81, blood pressure 120/69. She is tolerating her liquids. She has had a bowel movement. JOCELYNN output is 165 over the last 24 hours, it is serous. Two days ago, she had a fever to 101.9 degrees on 12/20/2018 at 1554 hours, has not had a fever since. Her white count this morning is 19.6 up from 10.7 three days ago. Her basic metabolic profile is normal, sodium 133. Her Accu-Cheks are 100 to 114. OBJECTIVE: LUNGS: Clear to auscultation. CARDIAC: Regular rate and rhythm without murmur or gallop. ABDOMEN: Soft. Wound as described. JOCELYNN serous. ASSESSMENT AND PLAN: Doing well. GI function is returning. Her fevers have resolved. I am concerned about her leukocytosis. We will check white count tomorrow and probably will discontinue her IV antibiotics and change her to p.o. or discontinue them depending on her clinical course. Wound Care will continue the wound VAC and guide the wound toward closure. She is having mobility issues and barely can raise her legs up off the bed to the floor. She wants to go home, but we have talked to her about going to rehab and she is agreeable for a temporary rehab stay to get her strength. Her family is supportive of this decision. We will ask Rehab to see her regarding rehab arrangements, anticipating transfer to rehab in the next 24 to 48 hours. She will be on oral antibiotics, not IV antibiotics, possibly discontinue oral soon. We will remove her JOCELYNN drain prior to discharge. She will continue to need a wound VAC and physical therapy. We will advance her to a bariatric diet today and discontinue her TPN having pharmacy not to mix any more TPN. Also, the patient was placed on oral hydrocodone, which disagreed with her, status post gastric bypass years past. Would avoid NSAIDs and would treat her pain with Tylenol and Ultram, which she has used in the past and tolerated. We will [place] p.o. 5/325 only if necessary. Her bowel function is good. She has not had any more problems with incontinence this hospitalization. Job ID: [id number]
[2018-12-22] MEDS: Sodium Chloride 0.9% 1,000 ML IV SCH (13:09)
[2018-12-22] MEDS: fentaNYL Citrate/PF 2,000 MCG in Sodium Chloride 0.9% 60 ML IV PRN (18:37)
[2018-12-22] MEDS: rOPINIRole HCl 1 MG TAB PO SCH (20:34)
[2018-12-23] MEDS: Piperacillin/Tazobactam 4.5 GM in Sodium Chloride 0.9% 100 ML IVPB SCH ×5 (00:41→23:42)
[2018-12-23] MEDS: [UNRECOGNIZED DRUG - OTHER] IV SCH (00:43)
[2018-12-23] MEDS: POTASSIUM CHLORIDE IV SCH (00:43)
[2018-12-23] MEDS: SODIUM ACETATE IV SCH (00:43)
[2018-12-23] MEDS: SODIUM CHLORIDE IV SCH (00:43)
[2018-12-23] MEDS: Levothyroxine Sodium 112 MCG TAB PO SCH (05:23)
[2018-12-23] MEDS ORDERED: HYDROcodone/Acetaminophen 10/325 mg Tablet PO PRN ×4 (09:23→14:54)
[2018-12-23 09:33] LABS: Anion Gap 11 mmol/L (10-20); BUN (Urea Nitrogen) 15 mg/dL (9.8-20.1); Calc. Creatinine Clearance 105 mL/min (70-130); Calcium 6.9 mg/dL (7.8-10.44); Carbon Dioxide 22 mmol/L (23-31); Chloride 106 mmol/L (98-107); Estimated GFR-MDRD Greater than 90; Glucose 71 mg/dL (80-115); Potassium 3.5 mmol/L (3.5-5.1); Sodium 135 mmol/L (136-145)
[2018-12-23] MEDS: Enoxaparin Sodium 40 MG/0.4 ML SYRINGE SC SCH (09:39)
[2018-12-23 10:00] LABS: #Eosinphils 0.1 thou/uL (0.0-0.7); #Lymphocytes 0.9 thou/uL (1.20-3.40); %Basophils 0.1 % (0.0-1.0); %Eosinophils 0.4 % (0.0-10.0); %Lymphocytes 5.2 % (21.0-51.0); %Monocytes 5.4 % (0.0-10.0); Hemoglobin 7.1 g/dL (12.0-16.0); Mean Corpuscular HGB CONC 32.2 g/dL (32.0-36.0); Mean Corpuscular Hemoglobin 30.4 pg (27.0-31.0); Mean Corpuscular Volume 94.4 fL (78.0-98.0); Mean Platelet Volume 7.7 fL (7.4-10.4); Platelet Count 500 thou/uL (130-400); RBC Distribution Width 13.5 % (11.5-14.5); Red Blood Cell (RBC) Count 2.32 mill/uL (4.20-5.40)
--- NOTE | 2018-12-23 11:33 | PRG ---
DATE OF SERVICE: 12/23/2018 SUBJECTIVE: Forte is doing well today. She walked 40 to 50 feet yesterday, but still requires assistance to get out of bed. She is very weak. Her pain is inadequately controlled without [place] 10, which has been ordered. She has been on this chronically for chronic low back pain and osteoporosis. White count this morning 18,000 and hemoglobin 7.1. Basic metabolic profile normal. OBJECTIVE: VITAL SIGNS: Temperature 98.5 degrees, pulse 83, and blood pressure 101/62. LUNGS: Clear to auscultation. CARDIAC: Regular rate and rhythm without murmur or gallop. ABDOMEN: Soft. JOCELYNN drainage diminished and was serous. ASSESSMENT AND PLAN: 1. Elevated white count. We will check a chest x-ray. Continue Zosyn. Recheck her CBC in the morning. 2. Deconditioning. Anticipate discharge to rehab tomorrow. 3. Tolerating diet. We will provide bariatric supplements. I have discontinued TPN. She has poor IV access and we will change her to oral antibiotics, discontinue her IV antibiotics and get rid of her central line. We will do this tomorrow prior to transfer. Job ID: [id number]
--- NOTE | 2018-12-23 12:01 | RAD ---
CHEST PA AND LATERAL: HISTORY: Postoperative leukocytosis. COMPARISON: 12/13/2018, 12/15/2018. FINDINGS: Left-sided vascular catheter. Distal tip is presumed to be in the region of the superior vena cava. I nterval removal of endotracheal and nasogastric tube. Heart: Cardiomegaly. Aorta: Atherosclerosis. Pulmonary vessels: Normal. Costophrenic angles: Bilateral pleural effusions, right greater than left. Bibasilar lung parenchymal changes. Lungs: Bibasilar atelectasis and/or pneumonia. Aspiration cannot be excluded. Pneumothorax: No pneumothorax. Osseous structures: No osseous abnormalities. IMPRESSION: Interval marked opacification of the right hemithorax due to pleural and parenchymal changes. Additio nal pleural and parenchymal changes noted in left lung base. Continued surveillance is recommended. Transcribed Date/Time: 12/23/2018 12:05 PM
[2018-12-23] MEDS ORDERED: Furosemide 40 MG/4 ML VIAL SLOW IVP SCH (14:45)
[2018-12-23] MEDS: traMADol HCl 50 MG TAB PO PRN (16:55)
[2018-12-23] MEDS: rOPINIRole HCl 1 MG TAB PO SCH (20:49)
[2018-12-23] MEDS: HYDROcodone/Acetaminophen 10/325 mg Tablet PO PRN (23:41)
[2018-12-24] MEDS: HYDROcodone/Acetaminophen 10/325 mg Tablet PO PRN ×4 (03:45→17:57)
[2018-12-24] MEDS: Levothyroxine Sodium 112 MCG TAB PO SCH (06:37)
[2018-12-24] MEDS: Piperacillin/Tazobactam 4.5 GM in Sodium Chloride 0.9% 100 ML IVPB SCH (06:37)
[2018-12-24 07:09] LABS: #Lymphocytes 1.1 thou/uL (1.20-3.40); #Monocytes 0.8 thou/uL (0.11-0.59); #Neutrophils 13.8 thou/uL (1.40-6.50); %Basophils 0.2 % (0.0-1.0); %Eosinophils 0.2 % (0.0-10.0); %Lymphocytes 6.8 % (21.0-51.0); %Monocytes 5.2 % (0.0-10.0); %Neutrophils 87.6 % (42.0-75.0); Hemoglobin 6.5 g/dL (12.0-16.0); Mean Corpuscular HGB CONC 32.7 g/dL (32.0-36.0); Mean Corpuscular Hemoglobin 30.6 pg (27.0-31.0); Mean Corpuscular Volume 93.6 fL (78.0-98.0); Mean Platelet Volume 7.2 fL (7.4-10.4); Platelet Count 530 thou/uL (130-400); RBC Distribution Width 13.5 % (11.5-14.5); Red Blood Cell (RBC) Count 2.14 mill/uL (4.20-5.40); White Blood Cell (WBC) Count 15.7 thou/uL (4.8-10.8)
[2018-12-24] MEDS ORDERED: Amoxicillin/Potassium Clav 875 MG TAB PO SCH (09:00)
[2018-12-24] MEDS: Enoxaparin Sodium 40 MG/0.4 ML SYRINGE SC SCH (09:25)
[2018-12-24] MEDS ORDERED: Furosemide 40 MG/4 ML VIAL SLOW IVP SCH (10:30)
[2018-12-24] MEDS: traMADol HCl 50 MG TAB PO PRN ×2 (12:11→17:20)
[2018-12-24] MEDS ORDERED: Cephalexin 250 MG CAP PO SCH (15:00)
[2018-12-24 17:08] VITALS: BP 110/58; TEMP 98
--- NOTE | 2018-12-25 12:39 | DIS ---
DATE OF ADMISSION: 12/10/2018 DATE OF DISCHARGE: 12/24/2018 PREHOSPITALIZATION DIAGNOSES: 1. Bascule, right colon with pain. 2. Bariatric status, status post laparoscopic gastric bypass in the past. 3. Deconditioning. 4. Postoperative anastomotic ileocolonic leak, requiring open laparotomy revision with 12/14/2018, redo ileocolic anastomosis. 5. Corneal abrasion, iatrogenic, intraoperative. 6. History of chronic constipation, on Amitiza. 7. Hypothyroidism, on replacement. 8. History of fecal incontinence, status post Neurosurgery evaluation and MRI imaging of her spine without evident neurological cause. Note, fecal incontinence resolved this hospitalization so far postoperatively. HISTORY: A 68-year-old female with the above-mentioned problems, was seen at an outside hospital traveling out of state, recommended to have a right colon resection due to bascule and pain. The patient underwent spinal evaluation by Neurosurgery and determined that her fecal incontinence was not due to any spinal problems. She underwent a bowel prep, admitted, underwent robotic right colon resection. Postoperatively, she developed a fever and pain and returned to the operating room and found to have contained leak with resection of a small segment of remaining proximal transverse colon and redo ileocolonic anastomosis. Postoperatively, she did well. She has been laid overnight, extubated the next day. She had severe deconditioning. Physical Therapy worked with her. She convalesced, tolerated her diet. She had a persistent white count up to 19,000 two days ago and 15,000 today. She had some edema and redness over her left flank. She had a CAT scan of abdomen and pelvis that did not reveal any abscess, but did have a fluid collection probably postoperatively. She remained afebrile. Her hemoglobin remained stable at 11 to 10, but on 12/19, was noted to have a hemoglobin of 7.7 and remained stable around 7.2 to 7.1, but on the day of transfer to rehab was 6.5. She was given 1 unit of blood. She was given 40 mg of Lasix yesterday and today. Plan is to transfer her to rehab today. She will continue to have wound care with the wound VAC changed 2 to 3 times a week. Her wound is granulating and healing. She had a corneal abrasion suffered during her initial operation. Dr. Walden saw her and treated with a bandage contact. She will follow up with him for that. Eye drops per his recommendations. She will follow up with me in 2 to 3 weeks. Continue with wound VAC. She is tolerating her bariatric regular diet, on vitamin replacement. Central line will be removed tomorrow after rechecking her CBC. Job ID: [id number]
--- NOTE | 2018-12-25 22:42 | PQF ---
KEARNS RICHARD D MD [id number] SURG B- [id number] CLINICAL DOCUMENTATION CLARIFICATION FORM: POST DISCHARGE Addendum to original discharge summary date: ____ Late entry note date: __ DATE: 12/25/18 ATTN: Lai Canela Please exercise your independent, professional judgment in responding to the clarification form. Clinical indicators are provided on the bottom of this form for your review In your clinical opinion based on clinical findings below, can you please further clarify Mesenteric vein tear if: Please check appropriate box(s): [ ] Mesenteric vein tear is an intraoperative complication [ ] Mesenteric vein tear is not an intraoperative complication and only part of procedure-inherent risk of operation [ ] Other condition, please specify: [ ] Unable to determine In addition, please specify: Present on Admission (POA): [ ] Yes [ ] No [ ] Unable to determine CLINICAL INDICATORS - SIGNS / SYMPTOMS / LABS Operative report p1 12/14 Dr Wang The proximal transverse colon was mobilized. Operative report p1 12/14 Dr Wang As I was mobilizing it, there was a tear in one of mesenteric vein resulting in a significant amount of bleeding. Operative report p1 12/14 Dr Wang This was carefully controlled under direct visualization with a 2-0 silk suture. RISK FACTORS Operative report p1 12/14 Ileocolonic Anastomosis Leak Operative report p1 12/14 s/p Right colon resection for Bascule TREATMENT: Operative report p1 12/14 Revision of Ileocolic anastomosis Operative report p1 12/14 Tear repair using 2-0 silk suture (This form is maintained as a part of the permanent medical record) 2014 [employer]. All Rights Reserved [email or web address] [not provided] MTDD
== END 2018-12-24 18:08 | DRG 329 ==
LOC: SURG A 12-10 07:41 → CCU 12-14 22:22 → SURG B 12-15 12:11
PROVIDERS: ADMIT Specialist; ATTEND Specialist
PROC: 0DTF0ZZ Resection of Right Large Intestine, Open Approach (ICD-10-PCS; principal; 2018-12-10)
PROC: 8E0W4CZ Robotic Assisted Procedure of Trunk Region, Percutaneous Endoscopic Approach (ICD-10-PCS; 2018-12-10)
PROC: 0DBB0ZZ Excision of Ileum, Open Approach (ICD-10-PCS; 2018-12-14)
PROC: 0DBL0ZZ Excision of Transverse Colon, Open Approach (ICD-10-PCS; 2018-12-14)
PROC: 02HV33Z Insertion of Infusion Device into Superior Vena Cava, Percutaneous Approach (ICD-10-PCS; 2018-12-14)
PROC: 30233N1 Transfusion of Nonautologous Red Blood Cells into Peripheral Vein, Percutaneous Approach (ICD-10-PCS; 2018-12-14)
DX: K56.2 Volvulus (principal); J96.01 Acute respiratory failure with hypoxia; K65.9 Peritonitis, unspecified; J90 Pleural effusion, not elsewhere classified; H59.88 Other intraoperative complications of eye and adnexa, not elsewhere classified; K91.89 Other postprocedural complications and disorders of digestive system; I10 Essential (primary) hypertension; K56.7 Ileus, unspecified; G89.29 Other chronic pain; M54.9 Dorsalgia, unspecified; M81.0 Age-related osteoporosis without current pathological fracture; K59.09 Other constipation; E89.0 Postprocedural hypothyroidism; R15.9 Full incontinence of feces; Y83.2 Surgical operation with anastomosis, bypass or graft as the cause of abnormal reaction of the patient, or of later complication, without mention of misadventure at the time of the procedure; Z85.850 Personal history of malignant neoplasm of thyroid; Z88.6 Allergy status to analgesic agent; Z88.5 Allergy status to narcotic agent; Z79.899 Other long term (current) drug therapy; Z79.890 Hormone replacement therapy
CPT/HCPCS: 36415; 36416; 36430; 71045; 71046; 74019; 74177; 80048; 80053; 80061; 81001; 82805; 83735; 84100; 84134; 85025; 85730; 86850; 86900; 86901; 87086; 88307; 94002; 94003; 94150; 94640; C9113; J0131; J0670; J0694; J1100; J1642; J1650; J1815; J1885; J1940; J1953; J2001; J2250; J2270; J2370; J2405; J2543; J2550; J2704; J3010; J3411; J3475; J3480; J3490; J7050; J7121; J7620; P9016; Q0169; Q9967

== ENCOUNTER 2019-01-20 10:21 | Inpatient (IN) | payer MEDICARE ==
[~2019-01-20 10:21] MED LIST: Glycopyrrolate 0.2 MG/ML 5 ML SYRINGE ONE; Lidocaine 1% PF 5 ML VIAL ONE; Ondansetron PF 4 MG/2 ML Vial ONE; PHENYLEPHRINE-NS 100 MCG/ML 10 ML SYRINGE ONE; PROPOFOL 200 MG/20 ML VIAL ONE; Rocuronium Bromide 10 MG/ML (10ML VIAL) ONE
[2019-01-20 10:53] LABS: #Basophils 0.1 thou/uL (0.0-0.2); #Monocytes 0.8 thou/uL (0.11-0.59); #Neutrophils 10.9 thou/uL (1.40-6.50); %Basophils 0.5 % (0.0-1.0); %Eosinophils 0.1 % (0.0-10.0); %Lymphocytes 14.7 % (21.0-51.0); %Monocytes 5.4 % (0.0-10.0); %Neutrophils 79.2 % (42.0-75.0); Hemoglobin 10.8 g/dL (12.0-16.0); Mean Corpuscular HGB CONC 31.5 g/dL (32.0-36.0); Mean Corpuscular Hemoglobin 28.1 pg (27.0-31.0); Mean Corpuscular Volume 89.2 fL (78.0-98.0); Mean Platelet Volume 8.9 fL (7.4-10.4); Platelet Count 411 thou/uL (130-400); RBC Distribution Width 15.2 % (11.5-14.5); Red Blood Cell (RBC) Count 3.85 mill/uL (4.20-5.40); White Blood Cell (WBC) Count 13.7 thou/uL (4.8-10.8)
[2019-01-20] MEDS ORDERED: Iopamidol-370 76% 500 ML 1 ML ONE (10:53)
[2019-01-20 11:05] LABS: ALT (SGPT) 38 U/L (8-55); AST (SGOT) 49 U/L (5-34); Albumin 2.7 g/dL (3.4-4.8); Alkaline Phosphatase 306 U/L (40-110); Anion Gap 16 mmol/L (10-20); BUN (Urea Nitrogen) 14 mg/dL (9.8-20.1); Bilirubin, Total 1.3 mg/dL (0.2-1.2); Calc. Creatinine Clearance 0 mL/min (70-130); Carbon Dioxide 20 mmol/L (23-31); Chloride 107 mmol/L (98-107); Estimated GFR-MDRD Greater than 90; Globulin 4.4 g/dL (2.4-3.5); Glucose 106 mg/dL (80-115); Lipase 21 U/L (8-78); Potassium 3.6 mmol/L (3.5-5.1); Protein, Total 7.1 g/dL (6.0-8.3); Sodium 139 mmol/L (136-145)
[2019-01-20] MEDS ORDERED: Piperacillin/Tazobactam 4.5 GM VIAL ONE (11:34)
[2019-01-20] MEDS ORDERED: Promethazine HCl 25 MG/ML VIAL ONE (11:34)
[2019-01-20] MEDS ORDERED: Sodium Chloride 0.9% 100 ML ONE (11:35)
--- NOTE | 2019-01-20 12:03 | CT ---
CT Abdomen Pelvis W Con: 01/20/2019 11:09 AM CLINICAL INFORMATION: Abdominal pain and nausea COMPARISON: 12/20/2018 TECHNIQUE: Multiple contiguous axial images were obtained and a CT of the abdomen and pelvis with IV contrast. Oral contrast was administered. Coronal and sagittal reformats were performed. FINDINGS: Lower Chest: Small hiatal hernia and small right pleural effusion with adjacent atelectasis Abdomen: Liver: No focal masses in the liver. Bile Ducts: Normal caliber. Gallbladder: Removed Pancreas: within normal limits. Spleen: within normal limits. Adrenals: within normal limits. Kidneys: 2.2 cm right renal cyst. Pelvis: Reproductive Organs: No pelvic masses. Ureters: within normal limits. Bladder: within normal limits. Peritoneum: There is a large complex fluid collection in the abdomen. The largest collection is seen just above the liver and below the diaphragm. This largest collection contains air. This area of collection measures 19.7 cm in greatest dimension. The fluid extends inferiorly in the right paracoli c gutter with multiple lobulations seen extending anteriorly. The fluid collection courses along the previous drain tract into the subcutaneous tissues where a collection measures 8.5 cm in greatest dimension. Multiple radiopaque structures in the anterior abdomen may represent laparoscopic deo or dropped gallstones. Bowel: Normal caliber. Mesentery and Retroperitoneum: No enlarged mesenteric or retroperitoneal lymph nodes. Vessels: Atherosclerotic calcifications. Abdominal Wall: within normal limits. Bones: Degenerative changes in the spine. IMPRESSION: 1. Large complex right abdominal abscess. 2. Right renal cyst 3. Small right pleural effusion
[2019-01-20] MEDS ORDERED: HYDROmorphone 0.5 MG/0.5 ML SYRINGE ONE ×2 (12:26→18:31)
[2019-01-20 12:38] LABS: Bacteria/HPF 4+ HPF (None Seen); Bilirubin Negative (Negative); Blood, Urine Negative (Negative); Clarity Turbid (Clear); Glucose, Urine (Dipstick) Normal (Negative); Leukocyte Negative Leu/uL (Negative); Nitrite Negative (Negative); Protein, Urine (Dipstick) 70 mg/dL (Neg-Trace); RBC/HPF 0-3 HPF (0-3); Squamous Epithelial None Seen HPF (0-3)
--- NOTE | 2019-01-20 13:27 | RAD ---
PORTABLE CHEST: Date: 01/20/19 PROVIDED CLINICAL HISTORY: Abdominal pain. FINDINGS: Comparison with 12/30/18. The visualized portions of the cardiac silhouette appear similar to the prior examination. There is e levation of the right hemidiaphragm with blunting of the right costophrenic angle compatible with ple ural fluid and adjacent atelectasis and/or infiltrate. The left lung appears clear. There is no evide nce for pneumothorax. IMPRESSION: Right pleural fluid with adjacent atelectasis or infiltrate. POS: OFF
--- NOTE | 2019-01-20 14:01 | HP ---
HISTORY OF PRESENT ILLNESS: Arcelia Chase is a 68-year-old female presenting to the emergency room with increasing abdominal pain. The patient has had a gastric bypass in the past laparoscopically. She has had a long history of fecal incontinence. She developed a bascule while visiting out of town, delayed care until she was local. She had a history of spine problems and had fecal incontinence and was seen by Neurosurgery after lumbar MRI determining her incontinence was not neurogenic. She then underwent 12/10/2018 robotic right colectomy anastomosis, but suffered a leak, returned to the operating room on December 14, 2018 for laparotomy, ileocolic resection, revision of her anastomosis, resection of redundant colon, pulse irrigation of the abdominal cavity, placement of a drain exiting the right lower quadrant. She also had a right central line placed. She underwent repeat CAT scan 12/20/2018, reveals some fluid collections right subdiaphragmatic and the right gutter, 1.3 x 1.4 cm transversely and 11.2 cm craniocaudad, thought to be postoperative as there was a drain in place. This drain was safely removed. She has a midline incision, which is healing secondarily. She is seen by [facility], undergoing wound VAC care for midline abdomen. She has had a remote history of cholecystectomy. The patient presents to the emergency room with increasing pain. In the emergency room, she is noted to have a white count of 13 and hemoglobin 10. The patient states that she has missed office appointments in my office due to fecal incontinence, which she had preoperatively. I had told her that we probably would not resolve that. The patient underwent a CAT scan of the abdomen and pelvis today revealing large subdiaphragmatic fluid collection with foci of air 19.7 cm in greatest dimension, extending the right paracolic gutter with multiple lobulations. It is felt that drained collection course around the drain tract into the subcutaneous tissue with collection measured 8.5 cm in the subcutaneous tissue. On exam, she has redness and fullness in the right lower quadrant. The patient's midline wound is granulating without any feculent drainage in fact has very little drainage. As stated above, her white count is 13.7. ALLERGIES: NSAIDS AND MORPHINE. SOCIAL HISTORY: Tobacco, none. Alcohol, none. MEDICATIONS: At home: 1. Requip 1 mg p.m. 2. Keppra 500 mg b.i.d. 3. a.m. 4. Potassium daily. 5. Omeprazole 20 mg daily. 6. Levothyroxine 112 mcg daily. 7. Iron daily. 8. Hydrocodone 10/325 t.i.d. p.r.n., has chronically taken this for back pain. 9. Gabapentin . 10. Keflex 500 t.i.d. 11. Tylenol Extra Strength. PAST SURGICAL HISTORY: Laparoscopic gastric bypass in the past, cholecystectomy, hiatal hernia surgery, thyroidectomy, more recent robotic right colon and then conversion to an open re-resection of ileocolic anastomosis and drain placement, history of depression, hypoglycemia, hypertension, hypothyroidism status post thyroid cancer and radiation, osteoarthritis, history of obesity with gastric bypass. PHYSICAL EXAMINATION: VITAL SIGNS: Heart rate 80, respiratory rate 18, and blood pressure 130/70. HEAD, EARS, EYES, NOSE, AND THROAT: Unremarkable. LUNGS: Clear to auscultation. CARDIAC: Regular rate and rhythm without murmur or gallop. ABDOMEN: Soft. Midline wound granulating. Wound VAC removed. Gauze dressing reapplied, fluctuant red area in right lower quadrant at all drain site. EXTREMITIES: Unremarkable. LABORATORY DATA: White count 13, hemoglobin 10.8. Sodium 139, potassium 3.6, BUN 14, and creatinine 0.57. ASSESSMENT AND PLAN: Right lower quadrant abscess, intraabdominal abscess. We would recommend incision and drainage of the right lower quadrant abscess in the operating room under sedation or general anesthesia. We would wash this out, culture it, and see if I could place any drain intra-abdominally. If repeat radiological scanning of the intraabdominal collection does not resolve this, then she might need a CT-guided percutaneous drain. She understands risks and benefits, consents. Job ID: [id number]
[2019-01-20 14:31] LABS: Lactic Acid 1.4 mmol/L (0.5-2.2)
[2019-01-20] MEDS ORDERED: Fentanyl 100 MCG/2 ML VIAL ONE ×6 (16:49→21:05)
[2019-01-20] MEDS ORDERED: HYDROcodone/Acetaminophen 10/325 mg Tablet PO PRN (18:40)
[2019-01-20] MEDS ORDERED: hydrALAZINE 20 MG/ML VIAL SLOW IVP PRN (18:40)
[2019-01-20] MEDS ORDERED: Ondansetron PF 4 MG/2 ML Vial IVP PRN (18:40)
[2019-01-20] MEDS ORDERED: Sodium Chloride 0.9% 20 ML ONE (18:42)
[2019-01-20] MEDS ORDERED: Acetaminophen 500 MG TAB PO PRN ×2 (18:47→18:48)
[2019-01-20] MEDS ORDERED: traMADol HCl 50 MG TAB PO PRN (18:47)
[2019-01-20] MEDS ORDERED: Ondansetron HCl/PF 4 MG/2 ML Vial IVP PRN (19:18)
[2019-01-20] MEDS ORDERED: Bupivacaine PF 0.5% 30 ML VIAL ONE (19:24)
[2019-01-20] MEDS ORDERED: Lidocaine 1% w/Epinephrine 1:100K 20 ML VIAL ONE (19:24)
--- NOTE | 2019-01-20 20:15 | RAD ---
Portable frontal chest radiograph: 01/20/2019 COMPARISON: 01/20/2019 HISTORY: Central line placement FINDINGS: There is elevation of the right hemidiaphragm limiting assessment of the right lung base. T here is mild linear density in the medial left lung base, nonspecific. There is a left-sided vascular catheter, distal tip overlying the expected location of the right atrium. No pneumothorax. IMPRESSION: Left vascular catheter as above. No evidence for pneumothorax.
[2019-01-20] MEDS ORDERED: Thiamine HCl 200 MG/2 ML VIAL SLOW IVP SCH (21:00)
[2019-01-20] MEDS: D5 1/2 NS w/20 mEq KCL 1,000 ML IV SCH (22:15)
[2019-01-20 22:17] VITALS: BMI 26.5
[2019-01-20] MEDS: Morphine 4 MG/ML VIAL SLOW IVP PRN (22:27)
[2019-01-20] MEDS: HYDROcodone/Acetaminophen 10/325 mg Tablet PO PRN (23:44)
[2019-01-20] MEDS: Gabapentin 300 MG CAP PO SCH (23:45)
[2019-01-20] MEDS: rOPINIRole HCl 1 MG TAB PO SCH (23:45)
[2019-01-20] MEDS: levETIRAcetam 500 MG TAB PO SCH (23:45)
[2019-01-20] MEDS: Enoxaparin Sodium 40 MG/0.4 ML SYRINGE SC SCH (23:45)
[2019-01-20] MEDS: Piperacillin/Tazobactam 4.5 GM in Sodium Chloride 0.9% 100 ML IVPB SCH (23:47)
--- NOTE | 2019-01-21 01:04 | OP ---
DATE OF PROCEDURE: 01/20/2019 PREOPERATIVE DIAGNOSIS: Subcutaneous abscess, right lower quadrant old JOCELYNN drain site intraabdominal abscess, perihepatic, right gutter. POSTOPERATIVE DIAGNOSIS: Subcutaneous abscess, right lower quadrant old JOCELYNN drain site intraabdominal abscess, perihepatic, right gutter. PROCEDURES PERFORMED: Incision and drainage of a complicated large multiloculated subcutaneous abscess, right lower quadrant old JOCELYNN drain site with drainage of intraabdominal abscess to the same site, placement of Jose drain, intraabdominal exiting the right lower quadrant subcutaneous wound. ANESTHESIA: General, local 0.5% Marcaine 30 mL mixed with 1% Xylocaine with epinephrine 30 mL. DESCRIPTION OF PROCEDURE: Patient was taken to the operating room, where under general anesthesia, left subclavian vein central line was placed. Seldinger technique used after ChloraPrep to cannulate the subclavian vein in infraclavicular approach. J-wire removed. Trocar catheter removed. Seldinger technique used to place triple-lumen catheter, secured with 3-0 nylon suture. Sterile dressing applied. The J-wire removed, each port filled with blood flushed with saline solution. Abdomen prepared with Betadine and draped in routine fashion. Runge removed from the midline. There was some 0 PDS suture removed from the upper wound. Incision was made in the right lower quadrant overlying the abscess draining some foul-smelling purulent material, sent for culture. Wound copiously irrigated with the pulse java j2ee lead. I could feel where the fascia had penetrated intraabdominal and as I pushed on the right upper quadrant, material evacuated. Pulse java j2ee lead was used to irrigate this. [place] drain placed into the abdominal cavity, brought out through the subcutaneous tissue, secured with 3-0 nylon suture. Gauze dressing applied. Patient tolerated the procedure well. Job ID: [id number]
[2019-01-21] MEDS: Morphine 4 MG/ML VIAL SLOW IVP PRN (01:20)
[2019-01-21] MEDS: D5 1/2 NS w/20 mEq KCL 1,000 ML IV SCH ×2 (03:42→12:03)
[2019-01-21] MEDS: Morphine 2 MG/ML SYRINGE SLOW IVP PRN (03:54)
[2019-01-21] MEDS: Piperacillin/Tazobactam 4.5 GM in Sodium Chloride 0.9% 100 ML IVPB SCH ×3 (05:43→17:47)
[2019-01-21] MEDS: Levothyroxine Sodium 112 MCG TAB PO SCH (05:43)
[2019-01-21 06:14] LABS: #Lymphocytes 1.7 thou/uL (1.20-3.40); #Monocytes 0.4 thou/uL (0.11-0.59); #Neutrophils 10.7 thou/uL (1.40-6.50); %Basophils 0.2 % (0.0-1.0); %Eosinophils 0.1 % (0.0-10.0); %Monocytes 2.9 % (0.0-10.0); %Neutrophils 83.7 % (42.0-75.0); Hemoglobin 9.8 g/dL (12.0-16.0); Mean Corpuscular HGB CONC 30.7 g/dL (32.0-36.0); Mean Corpuscular Hemoglobin 27.7 pg (27.0-31.0); Mean Corpuscular Volume 90.3 fL (78.0-98.0); Mean Platelet Volume 8.2 fL (7.4-10.4); Platelet Count 323 thou/uL (130-400); RBC Distribution Width 15.6 % (11.5-14.5); Red Blood Cell (RBC) Count 3.52 mill/uL (4.20-5.40); White Blood Cell (WBC) Count 12.8 thou/uL (4.8-10.8)
[2019-01-21] MEDS ORDERED: Naloxone HCl 0.4 mg/ml Vial IV PRN (06:25)
[2019-01-21] MEDS ORDERED: Promethazine HCl 25 MG/ML VIAL IM PRN (06:25)
[2019-01-21] MEDS ORDERED: diphenhydrAMINE 25 MG CAP PO PRN (06:25)
[2019-01-21] MEDS ORDERED: Zolpidem Tartrate 5 MG TAB PO PRN (06:25)
[2019-01-21] MEDS ORDERED: Ondansetron PF 4 MG/2 ML Vial IVP PRN (06:25)
[2019-01-21] MEDS ORDERED: diphenhydrAMINE 50 MG/ML VIAL IM PRN (06:25)
[2019-01-21] MEDS ORDERED: diphenhydrAMINE 50 MG/ML VIAL IVP PRN (06:25)
[2019-01-21] MEDS ORDERED: Communication Order-Pharmacy FS SCH (06:30)
[2019-01-21 06:31] LABS: Anion Gap 9 mmol/L (10-20); BUN (Urea Nitrogen) 13 mg/dL (9.8-20.1); Calc. Creatinine Clearance 132 mL/min (70-130); Carbon Dioxide 24 mmol/L (23-31); Chloride 109 mmol/L (98-107); Estimated GFR-MDRD Greater than 90; Glucose 114 mg/dL (80-115); Potassium 3.2 mmol/L (3.5-5.1); Sodium 139 mmol/L (136-145)
[2019-01-21] MEDS: fentaNYL Citrate/PF 2,000 MCG in Sodium Chloride 0.9% 60 ML IV PRN (07:12)
[2019-01-21] MEDS ORDERED: Potassium Chloride 20 MEQ TAB PO SCH (07:15)
[2019-01-21] MEDS ORDERED: Non-Formulary Item 1 EACH (Multivitamin [Multi-Vitamin Daily] 1 TAB) PO SCH (09:00)
--- NOTE | 2019-01-21 09:28 | CT ---
CT Abdomen Pelvis WO Con History: Fluid collection follow-up Comparison: CT abdomen and pelvis prior day Findings: Moderate right reactive layering pleural effusion. Due to mass effect from the right subdia phragmatic abscess/fluid collection, there are some mass effect upon the mediastinum with leftward shift. The right subhepatic collection continues to have nondependent gas is relatively similar in size. The re is a new drain through the right anterior abdominal wall with decompression of the fluid collection with partial decompression of the intraperitoneal fluid collection. The anterior abdominal wound has been opened along the cranial margin with gas along the linea alba w ith decompression of the previous small fluid collection. Contrast has transited to the descending colon. New increase of intraperitoneal free fluid. Small volume retained contrast within the right renal collecting system. Impression: 1. New surgical drain placed at the right subcutaneous anterior abdominal wall collection into the in traperitoneal collection which is decompressed. There is, however, unchanged size of the fluid and nondependent gas containing right subphrenic diaphragmatic collection which may not fully communicate . 2. New defect of the cranial margin of the anterior midline abdominal wound with decompression of the fluid collection at the linea alba with new foci of subcutaneous gas. 3. New small volume free intraperitoneal fluid. 4. Size unchanged reactive right pleural effusion. 5. Fluid collection around the ileocolic anastomosis is similar with no enteric contrast within the c ollection.
[2019-01-21] MEDS: levETIRAcetam 500 MG TAB PO SCH ×2 (10:20→22:07)
[2019-01-21] MEDS: Multivitamins CHEW w/Iron Tablet PO SCH (10:20)
[2019-01-21] MEDS: Zinc Sulfate 220 MG CAP PO SCH (10:21)
[2019-01-21] MEDS ORDERED: Ketorolac Tromethamine 30 MG/ML VIAL IVP PRN (10:36)
[2019-01-21 11:18] LABS: INR-International Normal Ratio 1.5; Prothrombin Time 17.7 SEC (12.0-14.7)
[2019-01-21] MEDS ORDERED: Sodium Bicarbonate 2.5 MEQ/5 ML VIAL ONE (12:54)
--- NOTE | 2019-01-21 13:03 | PRG ---
DATE OF SERVICE: 01/21/2019 SUBJECTIVE: Arcelia Chase is doing well after incision and drainage of right lower quadrant abdominal abscess that extended intraperitoneal, where a [place] drain was placed. Gram-stains revealed gram-negative rods and E coli. It is foul smelling, although has not had a tremendous amount of drainage overnight, mostly serosanguineous. The patient is in and out cath from the emergency room reveals a UTI, E coli. This should be covered by the intravenous antibiotics she is currently on. White count 12.8, hemoglobin 9.8. Differential unremarkable. Sodium 139, potassium 3.2, replaced with oral potassium. Renal function is normal. Repeat CAT scan this morning reveals resolved right lower quadrant and subcutaneous abscess fluid, but persistent right subdiaphragmatic fluid. I have asked CAT scan to drain this. I have ordered a PT/INR as required by them and her platelet count is normal. Open midline wound with a larger defect superiorly. Deep to this she may have some exposed granulation of her bowel. Wound Care was apprised. We will protect this during wound VAC management. There is some undermining inferiorly and right lateral. The open wound in the right lower quadrant has a foul smelling drainage, but it is minimal. Wound Care will place a wound VAC within this tunnel adjacent to the [place] drain. We will assess the drainage over the next 48 hours. OBJECTIVE: LUNGS: Clear to auscultation. CARDIAC: Regular rate and rhythm without murmur or gallop. ABDOMEN: Soft and nontender. EXTREMITIES: Unremarkable. ASSESSMENT AND PLAN: 1. Intraabdominal subdiaphragmatic abscess. Plan CT-guided drainage today. 2. Subcutaneous abscess, right lower quadrant. Continue [place] drainage and apply wound VAC and assess drainage. 3. Continue full liquids for now. She may need TPN, pending operative findings. The CAT scan she had yesterday did not reveal any evidence of extravasation outside the GI tract and followup CAT scan today reveals contrast has made way to the colon and there is no evidence of contrast outside the GI tract. The smell of the wound is suspicious for enteric drainage, but this may be residual from the past anastomotic leakage and we will assess this over the next few days. 4. Deconditioning. Continue physical therapy for assessment. Anticipate she will be here till next week. She may even need TPN depending on clinical course over the next 24 to 48 hours. She may need rehab or discharge plans home. We will see how she does from a mobility standpoint. Job ID: [id number]
--- NOTE | 2019-01-21 14:54 | CT ---
CT Peritoneal Abscess Drainage History: Abscess Comparison: CT exam same day Findings: Patient was brought to the CT suite. All questions were answered. Informed consent was obta ined. Timeout performed. The patient's right abdomen was prepped and draped in normal sterile fashion. Using CT guidance a 8 F rench drainage catheter was placed into the right subdiaphragmatic collection. 380 mL of pus was removed. The patient tolerated the procedure well without complication. Impression: Technically successful CT-guided subdiaphragmatic abscess aspiration and drainage.
[2019-01-21] MEDS: Multivitamins, Adult 10 ML, Folic Acid 1 MG, Thiamine HCl 100 MG in Dextrose 5 %-0.45 %... IV SCH ×2 (15:21→17:46)
[2019-01-21] MEDS: Gabapentin 300 MG CAP PO SCH (22:07)
[2019-01-21] MEDS: rOPINIRole HCl 1 MG TAB PO SCH (22:07)
[2019-01-21] MEDS: Enoxaparin Sodium 40 MG/0.4 ML SYRINGE SC SCH (22:07)
[2019-01-22] MEDS: D5 1/2 NS w/20 mEq KCL 1,000 ML IV SCH ×4 (00:09→23:10)
[2019-01-22] MEDS: Piperacillin/Tazobactam 4.5 GM in Sodium Chloride 0.9% 100 ML IVPB SCH ×5 (00:10→23:42)
[2019-01-22] MEDS: Multivitamins, Adult 10 ML, Folic Acid 1 MG, Thiamine HCl 100 MG in Dextrose 5 %-0.45 %... IV SCH ×3 (02:18→17:49)
[2019-01-22] MEDS: Levothyroxine Sodium 112 MCG TAB PO SCH (05:13)
[2019-01-22 05:54] LABS: Anion Gap 8 mmol/L (10-20); BUN (Urea Nitrogen) 12 mg/dL (9.8-20.1); Calc. Creatinine Clearance 127 mL/min (70-130); Calcium 6.6 mg/dL (7.8-10.44); Carbon Dioxide 23 mmol/L (23-31); Chloride 111 mmol/L (98-107); Estimated GFR-MDRD Greater than 90; Glucose 127 mg/dL (80-115); Potassium 3.1 mmol/L (3.5-5.1); Sodium 139 mmol/L (136-145)
[2019-01-22 06:10] LABS: Band 21 % (5-11); Hemoglobin 8.1 g/dL (12.0-16.0); Lymphocytes 10 % (21-51); MDiff Complete? YES; Mean Corpuscular HGB CONC 29.7 g/dL (32.0-36.0); Mean Corpuscular Hemoglobin 26.8 pg (27.0-31.0); Mean Corpuscular Volume 90.4 fL (78.0-98.0); Mean Platelet Volume 8.2 fL (7.4-10.4); Monocytes 3 % (0-10); Neutrophil 66 % (42-75); Nucleated RBC 1 % (0); Platelet Count 194 thou/uL (130-400); RBC Distribution Width 15.5 % (11.5-14.5); White Blood Cell (WBC) Count 15.4 thou/uL (4.8-10.8)
[2019-01-22] MEDS: Zinc Sulfate 220 MG CAP PO SCH (09:05)
[2019-01-22] MEDS: levETIRAcetam 500 MG TAB PO SCH ×2 (09:05→20:34)
[2019-01-22] MEDS: Multivitamins CHEW w/Iron Tablet PO SCH (09:06)
[2019-01-22] MEDS ORDERED: Potassium Chloride 20 MEQ TAB PO SCH ×2 (09:45→17:00)
--- NOTE | 2019-01-22 11:01 | PRG ---
DATE OF SERVICE: 01/22/2019 SUBJECTIVE: Ms. Chase feels better today. Her back pain and abdominal pain are markedly improved after incision and drainage of right lower quadrant abdominal wall abscess, placement of Jose drain, and subsequent CT-guided drainage of her right subdiaphragmatic abscess, cultures from the abdominal wall abscess, right lower quadrant reveals Streptococcus, Klebsiella, gram-negative rods, Gram stain from the subdiaphragmatic abscess, CT-guided drainage, GPC, gram-negative rods. She presented to the emergency room with also UTI E coli. This is covered with the current antibiotics. The patient feels much better. She is on full liquids. Her drainage from her wound VAC midline incision, right lower quadrant abdominal wall incision, which communicates intra-abdominally reveals minimal drainage in the wound VAC. Her percutaneous drain is about 55 mL postprocedural. OBJECTIVE: LUNGS: Clear to auscultation. CARDIAC: Regular rate and rhythm without murmur or gallop. ABDOMEN: Soft and nontender. ASSESSMENT AND PLAN: Abdominal wall abscess, status post incision and drainage and status post CT-guided drainage of subdiaphragmatic abscess. Continue Zosyn IV. Continue full liquids. Nutritional supplements between meals have been initiated by dietary. We would continue this regimen at this point and perhaps tomorrow we can increase her diet. She is receiving thiamine daily, banana bags daily with multivitamins, parenteral as she has bariatric status and prone to vitamin deficiency. She is malnourished, moderate to severe and we will continue dietary supplements and hopefully, resume her bariatric diet tomorrow. I expect she will need to be transferred to rehab next week and I have initiated that process with rehab. Replace her potassium again, which is low and recheck tomorrow. Job ID: [id number]
[2019-01-22] MEDS: VIT B12 SL SCH (12:34)
[2019-01-22] MEDS: B6 SL SCH (12:34)
[2019-01-22] MEDS: [UNRECOGNIZED DRUG - OTHER] SL SCH (12:34)
[2019-01-22] MEDS: FOLIC ACID SL SCH (12:34)
[2019-01-22] MEDS: fentaNYL Citrate/PF 2,000 MCG in Sodium Chloride 0.9% 60 ML IV PRN (14:56)
[2019-01-22] MEDS: rOPINIRole HCl 1 MG TAB PO SCH (20:34)
[2019-01-22] MEDS: Gabapentin 300 MG CAP PO SCH (20:34)
[2019-01-22] MEDS: Enoxaparin Sodium 40 MG/0.4 ML SYRINGE SC SCH (20:34)
[2019-01-23] MEDS: Multivitamins, Adult 10 ML, Folic Acid 1 MG, Thiamine HCl 100 MG in Dextrose 5 %-0.45 %... IV SCH (03:10)
[2019-01-23 04:56] LABS: Band 21 % (5-11); Lymphocytes 8 % (21-51); MDiff Complete? YES; Mean Corpuscular HGB CONC 30.5 g/dL (32.0-36.0); Mean Corpuscular Hemoglobin 27.6 pg (27.0-31.0); Mean Corpuscular Volume 90.5 fL (78.0-98.0); Mean Platelet Volume 7.9 fL (7.4-10.4); Monocytes 1 % (0-10); Neutrophil 70 % (42-75); Platelet Count 186 thou/uL (130-400); Platelet Morphology Comment Appears Adequate; RBC Distribution Width 15.8 % (11.5-14.5); White Blood Cell (WBC) Count 13.5 thou/uL (4.8-10.8)
[2019-01-23 04:58] LABS: Anion Gap 7 mmol/L (10-20); BUN (Urea Nitrogen) 11 mg/dL (9.8-20.1); Calc. Creatinine Clearance 140 mL/min (70-130); Calcium 6.6 mg/dL (7.8-10.44); Carbon Dioxide 23 mmol/L (23-31); Chloride 112 mmol/L (98-107); Estimated GFR-MDRD Greater than 90; Glucose 77 mg/dL (80-115); Potassium 4.2 mmol/L (3.5-5.1); Sodium 138 mmol/L (136-145)
[2019-01-23] MEDS: D5 1/2 NS w/20 mEq KCL 1,000 ML IV SCH (05:56)
[2019-01-23] MEDS: Levothyroxine Sodium 112 MCG TAB PO SCH (06:01)
[2019-01-23] MEDS: Piperacillin/Tazobactam 4.5 GM in Sodium Chloride 0.9% 100 ML IVPB SCH ×4 (06:01→23:47)
[2019-01-23] MEDS: levETIRAcetam 500 MG TAB PO SCH ×2 (09:03→21:09)
[2019-01-23] MEDS: Zinc Sulfate 220 MG CAP PO SCH (09:03)
[2019-01-23] MEDS: Multivitamins CHEW w/Iron Tablet PO SCH (09:03)
--- NOTE | 2019-01-23 11:24 | PRG ---
DATE OF SERVICE: 01/23/2019 SUBJECTIVE: Arcelia Chase is doing well today. Her pain is much improved after drainage of the right lower quadrant abdominal wall abscess and subdiaphragmatic abscess. OBJECTIVE: VITAL SIGNS: Temperature 98.2 degrees, heart rate 92, blood pressure 98/61. LUNGS: Clear to auscultation. CARDIAC: Regular rate and rhythm without murmur or gallop. ABDOMEN: Soft. LABORATORY DATA: Sodium 138, potassium 4.2, BUN and creatinine 11 and 0.48, glucose 77. White count 13, hemoglobin 8. ASSESSMENT AND PLAN: The patient's percutaneous drain, CT-guided placement, to drain the subdiaphragmatic right abscess has drained 230 mL in the last 24 hours. The VAC cancer drain is not draining much. For the subdiaphragmatic abscess fluid drainage, I have ordered nursing to irrigate this 3 times a day with 20 mL of saline. This looks more purulent and not feculent. Drainage from the wound VAC looks more cloudy, serous, and not feculent. The skin and subcutaneous tissues are having much better improvement. There are some necrotic areas of the subcutaneous tissues, but there is nothing needs to be debrided at this time. At this point, we would continue the wound VAC and the subdiaphragmatic drain, irrigating the subdiaphragmatic drain [address] Mabry will be seeing her this weekend. She has mild anemia, and there is no evidence of bleeding. This is due to rehydration. We will TKO her IV fluids to allow for her [employer]. We will advance her to a bariatric diet, and she has nutritional supplements to account for her malnutrition. She will be here till next week. She will need to go to a rehab at some point next week pending clinical course and evaluation in the hospital over the weekend and over the next week. Job ID: [id number]
[2019-01-23] MEDS: Enoxaparin Sodium 40 MG/0.4 ML SYRINGE SC SCH (21:08)
[2019-01-23] MEDS: Gabapentin 300 MG CAP PO SCH (21:09)
[2019-01-23] MEDS: rOPINIRole HCl 1 MG TAB PO SCH (21:09)
[2019-01-23] MEDS: fentaNYL Citrate/PF 2,000 MCG in Sodium Chloride 0.9% 60 ML IV PRN (21:52)
[2019-01-23] MEDS: FOLIC PO SCH ×2 (22:47→22:48)
[2019-01-23] MEDS: IRON CARB PO SCH ×2 (22:47→22:48)
[2019-01-23] MEDS: VIT C PO SCH ×2 (22:47→22:48)
[2019-01-23] MEDS: VIT B12 PO SCH ×2 (22:47→22:48)
[2019-01-23] MEDS: Sodium Chloride 0.45% 1,000 ML IV SCH (23:03)
[2019-01-24 04:45] LABS: ALT (SGPT) 54 U/L (8-55); AST (SGOT) 88 U/L (5-34); Albumin 1.8 g/dL (3.4-4.8); Alkaline Phosphatase 124 U/L (40-110); Anion Gap 7 mmol/L (10-20); BUN (Urea Nitrogen) 10 mg/dL (9.8-20.1); Bilirubin, Total 0.8 mg/dL (0.2-1.2); Calc. Creatinine Clearance 149 mL/min (70-130); Calcium 6.5 mg/dL (7.8-10.44); Carbon Dioxide 24 mmol/L (23-31); Chloride 109 mmol/L (98-107); Estimated GFR-MDRD Greater than 90; Glucose 67 mg/dL (80-115); Potassium 3.4 mmol/L (3.5-5.1); Protein, Total 4.8 g/dL (6.0-8.3); Sodium 137 mmol/L (136-145)
[2019-01-24] MEDS: Levothyroxine Sodium 112 MCG TAB PO SCH (05:36)
[2019-01-24] MEDS: Piperacillin/Tazobactam 4.5 GM in Sodium Chloride 0.9% 100 ML IVPB SCH ×4 (05:36→22:59)
[2019-01-24] MEDS: levETIRAcetam 500 MG TAB PO SCH ×2 (08:57→21:35)
[2019-01-24] MEDS: Multivitamins CHEW w/Iron Tablet PO SCH (08:58)
[2019-01-24] MEDS: Zinc Sulfate 220 MG CAP PO SCH (08:58)
[2019-01-24] MEDS ORDERED: Polyethylene Glycol 3350 17 GM Packet PO PRN (14:07)
--- NOTE | 2019-01-24 14:12 | PDOC.GSPN ---
Surgery Progress Note: Subj - Subjective Narrative: Not terrible but not great. She denies any nausea. Her appetite is poor. She has been trying to drink her muscle milk but doesn't like the [place]. Only taking a few bites of her meals. She has ambulated about 40 feet with physical therapy. She doesn't remember the last time she had a bowel movement but thinks it may be close to a week. She is passing gas and denies nausea. Vital signs are okay. No CBC done today. Albumin is quite low. Abdomen is soft and nondistended. There is some erythema at the exit site of the Jose and there is purulent drainage from the subdiaphragmatic drain. She is on appropriate antibiotics to cover the organisms growing on her cultures. Surgery Progress Note: Obj - Vital signs Vital signs: Vital Signs - Most Recent Temp Pulse Resp BP Pulse Ox 99 F 103 H 20 105/70 93 L 01/24/19 12:54 01/24/19 12:00 01/24/19 12:00 01/24/19 12:00 01/24/19 12:00 Surgery Progress Note: Results - Labs Result Diagrams: 01/23/19 04:10 01/24/19 04:06 Lab results: Laboratory Results - last 24 hr 01/24/19 04:06 Sodium 137 Potassium 3.4 L Chloride 109 H Carbon Dioxide 24 Anion Gap 7 L BUN 10 Creatinine 0.45 L Estimated GFR (MDRD) Greater than 90 Glucose 67 L Calcium 6.5 L Total Bilirubin 0.8 AST 88 H ALT 54 Alkaline Phosphatase 124 H Serum Total Protein 4.8 L Albumin 1.8 L Globulin 3.0 Albumin/Globulin Ratio 0.6 L Surgery Progress Note: A/P - Problem (1) Subdiaphragmatic abscess Current Visit: Yes Code(s): K65.1 - PERITONEAL ABSCESS Status: Acute Assessment and Plan: Patient is stable from the standpoint of her infectious process. She has drains in place. White count was slightly lower yesterday. Wasn't checked today. She has had some low-grade fevers. Continue IV antibiotics and drainage. (2) Protein calorie malnutrition Current Visit: Yes Code(s): E46 - UNSPECIFIED PROTEIN-CALORIE MALNUTRITION Status: Chronic Assessment and Plan: I'm concerned about the patient's low-protein levels. Albumin is an acute phase negative reactant but the patient looks cachectic and has risk factors of sepsis , recent surgery, and history of gastric bypass. She is not taking very good by mouth by her nurses report. I have asked the dietitian to see her and have ordered a calorie count. She may need TPN. She does have a central line in place for this if it is felt to be necessary. However, I would prefer to provide nutrition by mouth as much as possible. I encouraged the patient to continue to try to take in small amounts of protein supplements throughout the day. (3) Constipation Current Visit: Yes Code(s): K59.00 - CONSTIPATION, UNSPECIFIED Status: Acute Assessment and Plan: Patient hasn't had a bowel movement in several days, perhaps as long as a week. I will order docusate scheduled with when necessary MiraLAX. I encouraged increased fluid intake as well. (4) Hypokalemia Current Visit: Yes Code(s): E87.6 - HYPOKALEMIA Status: Acute Assessment and Plan: Potassium is a little low. We will replace this orally.
[2019-01-24] MEDS ORDERED: Potassium Chloride 20 MEQ TAB PO SCH (14:30)
[2019-01-24 14:57] LABS: Cardiac Risk 3.8 (Less than 4.5); Cholesterol 61 mg/dl (< 200 Desired); HDL Cholesterol 16 mg/dL (>60 Neg Risk); LDL Cholesterol, Calculated 29 mg/dL; Magnesium 1.7 mg/dL (1.6-2.6); Triglycerides 79 mg/dL (Less than 150)
[2019-01-24 15:01] LABS: Phosphorus 1.5 mg/dL (2.3-4.7)
[2019-01-24] MEDS ORDERED: K-Phos Neutral 250 MG TAB PO SCH ×2 (15:30)
[2019-01-24] MEDS: Enoxaparin Sodium 40 MG/0.4 ML SYRINGE SC SCH (21:35)
[2019-01-24] MEDS: rOPINIRole HCl 1 MG TAB PO SCH (21:35)
[2019-01-24] MEDS: Docusate Calcium (SURFAK) 240 MG CAP PO SCH (21:35)
[2019-01-24] MEDS: Gabapentin 300 MG CAP PO SCH (21:35)
[2019-01-25] MEDS: Levothyroxine Sodium 112 MCG TAB PO SCH (06:31)
[2019-01-25] MEDS: Piperacillin/Tazobactam 4.5 GM in Sodium Chloride 0.9% 100 ML IVPB SCH ×4 (06:31→23:27)
[2019-01-25 07:06] LABS: INR-International Normal Ratio 1.3; PTT 31.8 SEC (22.9-36.1); Prothrombin Time 15.9 SEC (12.0-14.7)
[2019-01-25 07:21] LABS: ALT (SGPT) 54 U/L (8-55); AST (SGOT) 75 U/L (5-34); Alkaline Phosphatase 122 U/L (40-110); Anion Gap 9 mmol/L (10-20); BUN (Urea Nitrogen) 10 mg/dL (9.8-20.1); Bilirubin, Total 0.7 mg/dL (0.2-1.2); Calc. Creatinine Clearance 149 mL/min (70-130); Calcium 6.7 mg/dL (7.8-10.44); Carbon Dioxide 23 mmol/L (23-31); Chloride 109 mmol/L (98-107); Estimated GFR-MDRD Greater than 90; Globulin 3.1 g/dL (2.4-3.5); Glucose 68 mg/dL (80-115); Potassium 3.3 mmol/L (3.5-5.1); Protein, Total 5.1 g/dL (6.0-8.3); Sodium 138 mmol/L (136-145)
[2019-01-25 08:58] LABS: #Eosinphils 0.1 thou/uL (0.0-0.7); #Lymphocytes 1.7 thou/uL (1.20-3.40); #Monocytes 0.4 thou/uL (0.11-0.59); #Neutrophils 7.8 thou/uL (1.40-6.50); %Basophils 0.1 % (0.0-1.0); %Eosinophils 0.8 % (0.0-10.0); %Lymphocytes 16.6 % (21.0-51.0); %Neutrophils 78.5 % (42.0-75.0); Hemoglobin 8.2 g/dL (12.0-16.0); Mean Corpuscular HGB CONC 30.7 g/dL (32.0-36.0); Mean Corpuscular Hemoglobin 27.6 pg (27.0-31.0); Mean Corpuscular Volume 89.8 fL (78.0-98.0); Platelet Count 227 thou/uL (130-400); RBC Distribution Width 15.8 % (11.5-14.5); Red Blood Cell (RBC) Count 2.99 mill/uL (4.20-5.40)
[2019-01-25] MEDS: Zinc Sulfate 220 MG CAP PO SCH (09:07)
[2019-01-25] MEDS: Multivitamins CHEW w/Iron Tablet PO SCH (09:07)
[2019-01-25] MEDS: Docusate Calcium (SURFAK) 240 MG CAP PO SCH ×2 (09:07→20:12)
[2019-01-25] MEDS: levETIRAcetam 500 MG TAB PO SCH ×2 (09:07→20:12)
[2019-01-25] MEDS: Sodium Chloride 0.45% 1,000 ML IV SCH (11:42)
[2019-01-25 12:23] LABS: Magnesium 1.8 mg/dL (1.6-2.6); Phosphorus 2.2 mg/dL (2.3-4.7)
[2019-01-25] MEDS ORDERED: Potassium Phosphate 9 MMOL in Sodium Chloride 0.9% 100 ML IVPB SCH (12:45)
[2019-01-25] MEDS ORDERED: D15W AA IV SCH ×2 (13:30→22:00)
[2019-01-25] MEDS ORDERED: FAT EMULSION IV SCH ×2 (13:30→22:00)
[2019-01-25] MEDS ORDERED: LYTES IV SCH ×2 (13:30→22:00)
--- NOTE | 2019-01-25 13:35 | PDOC.GSPN ---
Surgery Progress Note: Subj - Subjective Narrative: Patient is feeling a little better today. She had some pain last night but had a bowel movement and feels better now. The pain was mostly in her right side. No nausea or vomiting. She is trying to take her supplements. Calorie count is underway. Surgery Progress Note: Obj - Vital signs Vital signs: Vital Signs - Most Recent Temp Pulse Resp BP Pulse Ox 98 F 103 H 18 105/72 96 01/25/19 11:03 01/25/19 11:03 01/25/19 11:03 01/25/19 11:03 01/25/19 11:03 - Physical Exam General: no distress Abdomen: soft, nondistended (Slightly tender to palpation in the right lower quadrant, with a little erythema near the [place] exit site but no fluctuance or induration. VAC dressing is in place) Surgery Progress Note: Results - Labs Result Diagrams: 01/25/19 08:45 01/25/19 06:45 Lab results: Laboratory Results - last 24 hr 01/25/19 01/25/19 01/25/19 06:45 06:45 06:45 WBC RBC Hgb Hct MCV MCH MCHC RDW Plt Count MPV Neutrophils % Lymphocytes % Monocytes % Eosinophils % Basophils % Neutrophils # Lymphocytes # Monocytes # Eosinophils # Basophils # PT 15.9 H INR 1.3 APTT 31.8 Sodium 138 Potassium 3.3 L Chloride 109 H Carbon Dioxide 23 Anion Gap 9 L BUN 10 Creatinine 0.45 L Estimated GFR (MDRD) Greater than 90 Glucose 68 L Calcium 6.7 L Phosphorus 2.2 L Magnesium 1.8 Total Bilirubin 0.7 AST 75 H ALT 54 Alkaline Phosphatase 122 H Serum Total Protein 5.1 L Albumin 2.0 L Globulin 3.1 Albumin/Globulin Ratio 0.6 L 01/25/19 08:45 WBC 10.0 RBC 2.99 L Hgb 8.2 L Hct 26.8 L MCV 89.8 MCH 27.6 MCHC 30.7 L RDW 15.8 H Plt Count 227 MPV 8.0 Neutrophils % 78.5 H Lymphocytes % 16.6 L Monocytes % 4.0 Eosinophils % 0.8 Basophils % 0.1 Neutrophils # 7.8 H Lymphocytes # 1.7 Monocytes # 0.4 Eosinophils # 0.1 Basophils # 0.0 PT INR APTT Sodium Potassium Chloride Carbon Dioxide Anion Gap BUN Creatinine Estimated GFR (MDRD) Glucose Calcium Phosphorus Magnesium Total Bilirubin AST ALT Alkaline Phosphatase Serum Total Protein Albumin Globulin Albumin/Globulin Ratio Surgery Progress Note: A/P - Problem (1) Subdiaphragmatic abscess Current Visit: Yes Code(s): K65.1 - PERITONEAL ABSCESS Status: Acute (2) Protein calorie malnutrition Current Visit: Yes Code(s): E46 - UNSPECIFIED PROTEIN-CALORIE MALNUTRITION Status: Chronic (3) Constipation Current Visit: Yes Code(s): K59.00 - CONSTIPATION, UNSPECIFIED Status: Acute (4) Hypokalemia Current Visit: Yes Code(s): E87.6 - HYPOKALEMIA Status: Acute - Plan Plan: Patient is slightly improved but has a very low prealbumin and does not appear to be taking adequate oral intake. I'm going to start TPN. She is due for a VAC change tomorrow at which time we'll be able to get a better look at the [place] exit site. She does appear to have some erythema there; the margins were marked on the skin.
[2019-01-25] MEDS: fentaNYL Citrate/PF 2,000 MCG in Sodium Chloride 0.9% 60 ML IV PRN (15:12)
[2019-01-25] MEDS: Gabapentin 300 MG CAP PO SCH (20:12)
[2019-01-25] MEDS: Enoxaparin Sodium 40 MG/0.4 ML SYRINGE SC SCH (20:12)
[2019-01-25] MEDS: rOPINIRole HCl 1 MG TAB PO SCH (20:12)
[2019-01-25] MEDS ORDERED: Multivitamins, Adult 10 ML, Multitrace-5 5 ML in D15W-AA 5% with Lytes 2,000 ML, Fat Em... IV SCH (22:30)
[2019-01-26] MEDS: Piperacillin/Tazobactam 4.5 GM in Sodium Chloride 0.9% 100 ML IVPB SCH ×4 (06:03→23:09)
[2019-01-26] MEDS: Levothyroxine Sodium 112 MCG TAB PO SCH (06:03)
[2019-01-26 06:44] LABS: #Eosinphils 0.1 thou/uL (0.0-0.7); #Lymphocytes 1.9 thou/uL (1.20-3.40); #Monocytes 0.5 thou/uL (0.11-0.59); %Basophils 0.3 % (0.0-1.0); %Eosinophils 1.2 % (0.0-10.0); %Lymphocytes 20.2 % (21.0-51.0); %Neutrophils 73.2 % (42.0-75.0); Hemoglobin 8.2 g/dL (12.0-16.0); Mean Corpuscular HGB CONC 31.4 g/dL (32.0-36.0); Mean Corpuscular Hemoglobin 27.7 pg (27.0-31.0); Mean Corpuscular Volume 88.1 fL (78.0-98.0); Mean Platelet Volume 7.8 fL (7.4-10.4); Platelet Count 276 thou/uL (130-400); RBC Distribution Width 16.2 % (11.5-14.5); Red Blood Cell (RBC) Count 2.95 mill/uL (4.20-5.40); White Blood Cell (WBC) Count 9.6 thou/uL (4.8-10.8)
[2019-01-26 07:01] LABS: Phosphorus 2.2 mg/dL (2.3-4.7)
[2019-01-26 07:04] LABS: ALT (SGPT) 44 U/L (8-55); AST (SGOT) 52 U/L (5-34); Alkaline Phosphatase 106 U/L (40-110); Anion Gap 8 mmol/L (10-20); BUN (Urea Nitrogen) 8 mg/dL (9.8-20.1); Bilirubin, Total 0.5 mg/dL (0.2-1.2); Calc. Creatinine Clearance 149 mL/min (70-130); Calcium 6.8 mg/dL (7.8-10.44); Carbon Dioxide 25 mmol/L (23-31); Chloride 107 mmol/L (98-107); Estimated GFR-MDRD Greater than 90; Globulin 3.1 g/dL (2.4-3.5); Glucose 91 mg/dL (80-115); Magnesium 1.8 mg/dL (1.6-2.6); Protein, Total 5.1 g/dL (6.0-8.3); Sodium 137 mmol/L (136-145)
[2019-01-26] MEDS: Multivitamins CHEW w/Iron Tablet PO SCH (08:59)
[2019-01-26] MEDS: Zinc Sulfate 220 MG CAP PO SCH (08:59)
[2019-01-26] MEDS: levETIRAcetam 500 MG TAB PO SCH ×2 (09:00→20:51)
[2019-01-26] MEDS: Docusate Calcium (SURFAK) 240 MG CAP PO SCH ×2 (09:00→20:51)
[2019-01-26] MEDS ORDERED: Famotidine 20 MG TAB PO SCH (12:15)
[2019-01-26] MEDS ORDERED: Potassium Chloride 20 MEQ TAB PO SCH (14:00)
--- NOTE | 2019-01-26 14:08 | PRG ---
DATE OF SERVICE: 01/26/2019 SUBJECTIVE: Arcelia Chase is doing well today. She has a good weekend. She is still weak and will need rehab post discharge. 98.5 degrees, 92, 16, 115/71. Oral intake has been poor. Dietitian estimates 1200 calorie intake in 24 hours. Drain output, percutaneous drain over 24 hours is 50 mL. Drain from her wound VAC since Saturday is minimal. Canister had to be changed and is less than full. The patient has not had a fever. Her white count is 9.6, hemoglobin 8.2, potassium 3.0, sodium 137, BUN and creatinine are 8 and 0.5 respectively. OBJECTIVE: LUNGS: Clear to auscultation. CARDIAC: Regular rate and rhythm without murmur or gallop. ABDOMEN: Soft. Midline wounds lower, almost completely healed, granulation is flushed, skin is epithelializing. The upper midline wound extends down to probable viscera, there is granulation, some undermining. It is healthy. The right lower quadrant wound, the Jose drain was removed. The necrotic subcutaneous tissue debrided sharply, 10 blade excisional. The patient tolerated this well. Wound VAC should take care of the rest of the debridement. Drainage from this wound and is thinner and more serous. Drainage from the percutaneous drain, right upper quadrant is thinner with some residue. They are irrigating this. Abdomen is nontender. Large bowel movement yesterday and today. ASSESSMENT AND PLAN: 1. Malnutrition. Continue TPN and calorie count. 2. Encourage nutritional supplements. 3. Potassium deficiency, replace. 4. Continue to irrigate the wound. 5. Deconditioning. We will plan transfer to rehab mid to later this week. Job ID: [id number]
[2019-01-26] MEDS: rOPINIRole HCl 1 MG TAB PO SCH (20:51)
[2019-01-26] MEDS: Gabapentin 300 MG CAP PO SCH (20:51)
[2019-01-26] MEDS: Enoxaparin Sodium 40 MG/0.4 ML SYRINGE SC SCH (20:51)
[2019-01-26] MEDS: fentaNYL Citrate/PF 2,000 MCG in Sodium Chloride 0.9% 60 ML IV PRN (22:33)
[2019-01-26] MEDS: Multivitamins, Adult 10 ML, Multitrace-5 5 ML in D15W-AA 5% with Lytes 2,000 ML, Fat Em... IV SCH (22:33)
[2019-01-27] MEDS: Piperacillin/Tazobactam 4.5 GM in Sodium Chloride 0.9% 100 ML IVPB SCH ×4 (06:21→23:55)
[2019-01-27] MEDS: Levothyroxine Sodium 112 MCG TAB PO SCH (06:21)
[2019-01-27] MEDS ORDERED: Potassium Chloride 20 MEQ TAB PO SCH (07:00)
[2019-01-27] MEDS: Zinc Sulfate 220 MG CAP PO SCH (08:20)
[2019-01-27] MEDS: Sodium Chloride 0.45% 1,000 ML IV SCH (08:20)
[2019-01-27] MEDS: Docusate Calcium (SURFAK) 240 MG CAP PO SCH (08:21)
[2019-01-27] MEDS: levETIRAcetam 500 MG TAB PO SCH ×2 (08:21→21:09)
[2019-01-27] MEDS: Famotidine 20 MG TAB PO SCH (08:21)
[2019-01-27] MEDS: Multivitamins CHEW w/Iron Tablet PO SCH (08:21)
[2019-01-27] MEDS: fentaNYL Citrate/PF 2,000 MCG in Sodium Chloride 0.9% 60 ML IV PRN (13:33)
--- NOTE | 2019-01-27 16:44 | PRG ---
DATE OF SERVICE: 01/27/2019 SUBJECTIVE: Ms. Chase is tolerating chicken noodle soup. calorie count. The patient is for 01/25 took 786 calories, yesterday day two 684 calories. Third calorie count pending. The patient is on TPN. She states she would probably eat more as she is on a regular diet. Even though, she is status post bariatric surgery, we will order regular diet to improve her calorie intake to improve with a variety of foods available to her. Laboratories, none today. Accu-Cheks well controlled. OBJECTIVE: LUNGS: Clear to auscultation. CARDIAC: Regular rate and rhythm without murmur or gallop. ABDOMEN: Soft and nontender. EXTREMITIES: Unremarkable. Drainage from her CT-guided drain is 10 mL in the last 24 hours. Drainage from the wound VAC is minimal. We will view her wounds tomorrow. ASSESSMENT AND PLAN: Subdiaphragmatic abscess status post CT-guided percutaneous drainage. Abdominal wall abscess right lower quadrant, status post incision and drainage in the OR. Continue wound VAC. Open wound, midline. Continue wound VAC. Malnutrition. Continue TPN for now. She is not consuming adequate calories. We will increase her to regular diet and continue calorie count. Anticipate she go to rehab in the next 1 or 2 days. Her mobility is still limited and she needs rehab prior to going home. Job ID: [id number]
[2019-01-27] MEDS: Gabapentin 300 MG CAP PO SCH (21:08)
[2019-01-27] MEDS: Enoxaparin Sodium 40 MG/0.4 ML SYRINGE SC SCH (21:09)
[2019-01-27] MEDS: rOPINIRole HCl 1 MG TAB PO SCH (21:09)
[2019-01-27] MEDS: Multivitamins, Adult 10 ML, Multitrace-5 5 ML in D15W-AA 5% with Lytes 2,000 ML, Fat Em... IV SCH (22:31)
[2019-01-28] MEDS: Diphenoxylate HCl/Atropine Tablet PO PRN ×2 (04:16→09:47)
[2019-01-28] MEDS: Piperacillin/Tazobactam 4.5 GM in Sodium Chloride 0.9% 100 ML IVPB SCH ×3 (05:57→17:16)
[2019-01-28] MEDS: Levothyroxine Sodium 112 MCG TAB PO SCH (05:57)
[2019-01-28 06:22] LABS: #Eosinphils 0.1 thou/uL (0.0-0.7); #Monocytes 0.4 thou/uL (0.11-0.59); #Neutrophils 8.1 thou/uL (1.40-6.50); %Basophils 0.1 % (0.0-1.0); %Eosinophils 0.7 % (0.0-10.0); %Lymphocytes 18.5 % (21.0-51.0); %Monocytes 4.2 % (0.0-10.0); %Neutrophils 76.5 % (42.0-75.0); Hemoglobin 7.7 g/dL (12.0-16.0); Mean Corpuscular HGB CONC 31.5 g/dL (32.0-36.0); Mean Corpuscular Hemoglobin 27.6 pg (27.0-31.0); Mean Corpuscular Volume 87.9 fL (78.0-98.0); Mean Platelet Volume 7.2 fL (7.4-10.4); Platelet Count 325 thou/uL (130-400); RBC Distribution Width 17.1 % (11.5-14.5); White Blood Cell (WBC) Count 10.5 thou/uL (4.8-10.8)
[2019-01-28 06:42] LABS: Anion Gap 8 mmol/L (10-20); BUN (Urea Nitrogen) 8 mg/dL (9.8-20.1); Calc. Creatinine Clearance 160 mL/min (70-130); Calcium 6.9 mg/dL (7.8-10.44); Carbon Dioxide 30 mmol/L (23-31); Chloride 102 mmol/L (98-107); Estimated GFR-MDRD Greater than 90; Glucose 74 mg/dL (80-115); Magnesium 1.9 mg/dL (1.6-2.6); Phosphorus 2.5 mg/dL (2.3-4.7); Potassium 3.2 mmol/L (3.5-5.1); Sodium 137 mmol/L (136-145)
[2019-01-28] MEDS ORDERED: Potassium Chloride 20 MEQ TAB PO SCH (07:45)
[2019-01-28] MEDS: Famotidine 20 MG TAB PO SCH (08:47)
[2019-01-28] MEDS: Multivitamins CHEW w/Iron Tablet PO SCH (08:47)
[2019-01-28] MEDS: Zinc Sulfate 220 MG CAP PO SCH (08:47)
[2019-01-28] MEDS: levETIRAcetam 500 MG TAB PO SCH ×2 (08:48→20:32)
--- NOTE | 2019-01-28 10:55 | CT ---
CT ABDOMEN AND PELVIS WITH IV CONTRAST 01/28/2019 CLINICAL INFORMATION: Follow-up abdominal abscess collections. COMPARISON: 01/21/2019 Technique: Multiple contiguous axial CT images are obtained through the abdomen and pelvis with IV contrast. Cor onal reformatted images are provided. FINDINGS: Lower Chest: A moderate right and tiny left pleural effusions are present. There is consolidation at the right lung base which may be related to passive atelectasis versus pneumonia. Right pleural effusion has slightly increased compared to prior study with interval development of the tiny left pl eural effusion and atelectasis. Vessels: Vascular calcifications are present. Abdomen: Portal vein:Patent Gallbladder: Surgically absent. The common duct and intrahepatic ducts are dilated likely related to reservoir effect. Liver: within normal limits. Spleen: within normal limits. Pancreas: Fatty replaced. Adrenals: within normal limits. Kidneys: Superior pole right renal cyst is again noted. Mild bilateral hydronephrosis and hydroureter is present. Bowel: Postsurgical changes related to right hemicolectomy. Postsurgical changes of the stomach are p resent. A small hiatal hernia is noted. There are mildly dilated loops of small bowel within the left upper quadrant which is nonspecific and could be related to peristalsis as more distal loops of small bowel appear normal in caliber. There is thickening involving the proximal and mid descending colon which is more thickened than typically expected for incomplete distention, and findings may be related to colitis. Similar mild focal thickening is seen within the distal transverse colon. Peritoneum/retroperitoneum: Previously noted large subdiaphragmatic fluid and gas collection has decr eased in size with largest measurement on the prior study of 18 cm, and the largest measurement on today's examination is 8.6 cm. A drainage catheter is seen in the mid axillary line with the cope loo p portion of the catheter adjacent to the right hepatic lobe laterally. This portion of the catheter may potentially be within the most inferior and decompressed extent of the large subdiaphrag matic fluid collection. The fluid and gas collection just anterior to the lower right hepatic lobe and extending in the right paracolic gutter is again seen but smaller in size. This collection previously measured 6.7 cm in greatest AP dimension and measures 4.4 cm on today's exam. There has been interval development of a lobulated fluid collection within the lower pelvis just supe rior to the urinary bladder and adjacent to the colon with collection surrounding a portion of the sigmoid colon. This collection measures approximately 8.2 cm craniocaudal x4.2 cm transverse x8.2 cm AP. Just superior to this larger fluid collection in the root of the mesentery is a smaller fluid collection measuring 5.2 cm x 3.1 cm. This collection does not appear to be contiguous with the large r collection in the pelvis. This collection was also present on the prior nonenhanced CT exam on 01/21/2019. The drainage catheter right pelvis anterolaterally has been removed. Small amount of residual gas and stranding is seen within the subcutaneous soft tissues at site of prior drainage catheter with overlying soft tissue defect present. Tiny amount of free fluid is seen in the pelvis with mild stranding seen within the mesentery. Abdominal Wall: Subcutaneous edema and fluid is present within the abdomen predominantly laterally wh ich extends into the gluteal regions. Pelvis: Reproductive Organs: Slight increased density/enhancing foci within the body of uterus also seen on t he prior study of 01/20/2019 which may represent small uterine fibroids. Pelvis within normal limits. Bladder: Partially distended and normal in appearance. Bones: There is likely a large Schmorl's node in the superior endplate of the T12 vertebral body. IMPRESSION: 1. Interval development of a lobulated fluid collection within the pelvis with greatest transverse di mension of 12.62 cm. This is likely related to abscess collection. 2. Small fluid collection within the central mesentery with largest dimension of 5.2 cm. 3. Interval decrease in size of the fluid and gas collection in the right paracolic gutter. 4. Interval decrease in size of the subdiaphragmatic fluid collection with drainage catheter noted in place adjacent to the right lateral margin of the right hepatic lobe. This drainage catheter may potentially be within the most inferior extent of the decompressed portion of the collection, but thi s difficult to definitively determine based on this study. 5. Mild increase in right pleural effusion with moderate size right pleural effusion present. Consoli dation right lung base may be related to associated passive atelectasis, but pneumonia is a possibility. There has been interval development of a tiny left pleural effusion and atelectasis. 6. Colonic wall thickening involving the proximal descending colon as well as a small portion of the transverse colon. This could be related to focal areas of a colitis. This may be infectious or inflammatory in etiology. There are intervening areas of more normal wall thickness. 7. Postsurgical changes of the abdomen and pelvis. 8. Mild bilateral hydronephrosis and hydroureter related to interval development of the pelvic fluid collection.
[2019-01-28] MEDS: HYDROcodone/Acetaminophen 10/325 mg Tablet PO PRN ×3 (12:29→21:10)
--- NOTE | 2019-01-28 13:47 | PRG ---
DATE OF SERVICE: 01/28/2019 SUBJECTIVE: Arcelia Chase is doing well today. Temperature 98.3 degrees, pulse 94, respirations 16, and blood pressure 95/62. I have talked to [facility] dietitian and the patient's calorie count is poor, probably less than 600 or 800 calories a day. She is not taking much of her supplements. The patient states, however, that her appetite is improving and since we put on her a regular diet, her selections are better. I have talked to her about consuming more nutritional supplements. The patient underwent a CAT scan of the abdomen and pelvis today. The large subdiaphragmatic fluid collection is mostly resolved; although, the one adjacent is slightly smaller, not resolved. The drainage catheter placed by CAT scan subdiaphragmatic is adjacent to the remaining fluid collection, uncertain whether it is draining or not. fluid collection does not have any gas densities. The patient has a mesenteric density in central abdomen, which is not accessible, but this is small 3 to 4 cm. She has another collection in her pelvis, which does not have any gas densities, maybe just irrigation fluid. There is collection in right gutter, which is smaller. Today, her drainage from her percutaneous drainage subdiaphragmatic collection is less than 5 or 10 mL a day for the last 2 days. OBJECTIVE: LUNGS: Clear to auscultation. CARDIAC: Regular rate and rhythm without murmur or gallop. ABDOMEN: Soft and nontender. Good bowel sounds. She has had a bowel movement. She reports incontinence of stool and urine. This was evaluated preoperatively and she saw Neurosurgery as she had chronic spine problems. She had MRI scans. There is no evidence of a neurogenic incontinence. This is a chronic problem for the patient and I do not have any solution for it. Consideration for a colostomy in the future can be given, but operation should be avoided at this time. The patient's wounds were evaluated, they are improving. The upper midline wound is granulating, decrease in size. The right lower quadrant wound is granulating and there is no necrotic slough. There is no foul smell. Overall, she is doing better today. ASSESSMENT AND PLAN: 1. Abdominal fluid collections, improved though not completely resolved. We will leave her drain in place as we will repeat her CAT scan of the abdomen and pelvis next week without contrast on Saturday and assess the fluid collections. The existing drain might be able to be manipulating the adjacent fluid collection if it does not drain by that time. The patient is afebrile and white count is normal. 2. The right lower quadrant wound is granulating and healing. 3. Midline wound granulating and healing. 4. Poor nutrition. Continue TPN supplementation. Continue calorie count. 5. Stop her [employer] pump today and treated with oral analgesics and if all is well, she can be transferred to rehab tomorrow. Job ID: [id number]
[2019-01-28] MEDS: Gabapentin 300 MG CAP PO SCH (20:31)
[2019-01-28] MEDS: Enoxaparin Sodium 40 MG/0.4 ML SYRINGE SC SCH (20:31)
[2019-01-28] MEDS: Ondansetron ODT 4 MG TAB PO PRN (20:32)
[2019-01-28] MEDS: rOPINIRole HCl 1 MG TAB PO SCH (20:32)
[2019-01-28] MEDS: MULTITRACE IV SCH (22:33)
[2019-01-28] MEDS: MULTIVITAMINS IV SCH (22:33)
[2019-01-28] MEDS: [UNRECOGNIZED DRUG - OTHER] IV SCH (22:33)
[2019-01-28] MEDS: POTASSIUM ACETATE IV SCH (22:33)
[2019-01-29] MEDS: Piperacillin/Tazobactam 4.5 GM in Sodium Chloride 0.9% 100 ML IVPB SCH ×5 (00:12→23:03)
[2019-01-29] MEDS: Morphine 4 MG/ML VIAL SLOW IVP PRN (01:53)
[2019-01-29] MEDS: Levothyroxine Sodium 112 MCG TAB PO SCH (06:03)
[2019-01-29 06:23] LABS: #Eosinphils 0.2 thou/uL (0.0-0.7); #Lymphocytes 2.6 thou/uL (1.20-3.40); #Monocytes 0.5 thou/uL (0.11-0.59); #Neutrophils 9.2 thou/uL (1.40-6.50); %Basophils 0.1 % (0.0-1.0); %Eosinophils 1.2 % (0.0-10.0); %Lymphocytes 20.5 % (21.0-51.0); %Monocytes 4.1 % (0.0-10.0); %Neutrophils 74.1 % (42.0-75.0); Hemoglobin 7.5 g/dL (12.0-16.0); Mean Corpuscular HGB CONC 30.8 g/dL (32.0-36.0); Mean Corpuscular Hemoglobin 27.5 pg (27.0-31.0); Mean Corpuscular Volume 89.3 fL (78.0-98.0); Mean Platelet Volume 7.4 fL (7.4-10.4); Platelet Count 326 thou/uL (130-400); RBC Distribution Width 17.7 % (11.5-14.5); Red Blood Cell (RBC) Count 2.72 mill/uL (4.20-5.40); White Blood Cell (WBC) Count 12.5 thou/uL (4.8-10.8)
[2019-01-29 06:45] LABS: ALT (SGPT) 46 U/L (8-55); AST (SGOT) 59 U/L (5-34); Alkaline Phosphatase 105 U/L (40-110); Anion Gap 8 mmol/L (10-20); BUN (Urea Nitrogen) 9 mg/dL (9.8-20.1); Bilirubin, Total 0.3 mg/dL (0.2-1.2); Calc. Creatinine Clearance 152 mL/min (70-130); Calcium 7.3 mg/dL (7.8-10.44); Carbon Dioxide 30 mmol/L (23-31); Cardiac Risk 3.8 (Less than 4.5); Chloride 104 mmol/L (98-107); Cholesterol 90 mg/dl (< 200 Desired); Estimated GFR-MDRD Greater than 90; Globulin 3.3 g/dL (2.4-3.5); HDL Cholesterol 24 mg/dL (>60 Neg Risk); LDL Cholesterol, Calculated 46 mg/dL; Potassium 4.4 mmol/L (3.5-5.1); Protein, Total 5.3 g/dL (6.0-8.3); Sodium 138 mmol/L (136-145); Triglycerides 101 mg/dL (Less than 150)
[2019-01-29 06:48] LABS: Glucose 59 mg/dL (80-115)
[2019-01-29] MEDS: Multivitamins CHEW w/Iron Tablet PO SCH (08:18)
[2019-01-29] MEDS: Famotidine 20 MG TAB PO SCH (08:18)
[2019-01-29] MEDS: levETIRAcetam 500 MG TAB PO SCH ×2 (08:18→20:27)
[2019-01-29] MEDS: Zinc Sulfate 220 MG CAP PO SCH (08:18)
[2019-01-29] MEDS: HYDROcodone/Acetaminophen 10/325 mg Tablet PO PRN ×4 (08:19→23:01)
[2019-01-29] MEDS ORDERED: Midazolam HCl 2 mg/2 ml Vial ONE (08:20)
[2019-01-29] MEDS ORDERED: Fentanyl 100 MCG/2 ML VIAL ONE (08:20)
[2019-01-29] MEDS ORDERED: Sodium Bicarbonate 2.5 MEQ/5 ML VIAL ONE (08:20)
--- NOTE | 2019-01-29 11:58 | SPC ---
EXAM: Abscess drainage catheter replacement PROVIDED CLINICAL HISTORY: Patient with large right upper quadrant fluid and gas collection with drainage catheter in place. The fluid and gas collection has diminished in size, but fluid and gas persists in a subdiaphragmatic location. The distal portion of the tube is located adjacent to the lateral margin of the liver, and repositioning of the tube into a subdiaphragmatic location was requested. COMPARISON: CT abdomen on 01/28/2019. TECHNIQUE: After informed consent was obtained, the patient was placed on the angiographic table in the supine p osition. The indwelling right upper quadrant drainage catheter in the mid axillary line as well as surrounding area were meticulously prepped and draped in usual sterile fashion. An 18-gauge needle wa s utilized to puncture the catheter, and contrast was injected demonstrating free flow of contrast away from the tip of the catheter into a subdiaphragmatic location. The tube was cut and exchanged over a 0.035 inch Britelyson guidewire for a new 8 [place] cope loop all-p urpose drainage catheter which was manipulated into the subdiaphragmatic region. The wire was removed, and there was brisk return of cloudy fluid. Contrast injection confirms free flow of contras t from the catheter in a subdiaphragmatic location. Approximately 120 mL of cloudy fluid was aspirated. The catheter was flushed and placed to gravity drainage. The catheter was sutured in place utilizing 2-0 Ethilon suture material, and a dry sterile dressing was placed. The patient tolerated the procedure well and without immediate complication. Fluoroscopy: Time-1.4 minutes Dose-12,972 mGy centimeter squared IMPRESSION: 1. Technically successful right subdiaphragmatic abscess drainage catheter replacement. The catheter was manipulated into a subdiaphragmatic location. Cloudy fluid was aspirated as noted above.
[2019-01-29] MEDS: Morphine 2 MG/ML SYRINGE SLOW IVP PRN (17:27)
[2019-01-29] MEDS: Ondansetron ODT 4 MG TAB PO PRN (17:37)
--- NOTE | 2019-01-29 18:53 | PRG ---
DATE OF SERVICE: 01/29/2019 SUBJECTIVE: Arcelia Chase underwent Interventional Radiology exchange of her J-wire. She had cloudy fluid drained from the fluid collection. Cultures from previous abdominal wall abscess reveal Streptococcus and Clostridium. She is on Zosyn. Cultures from today's drainage pending. The patient's calorie intake is still poor. She is on TPN. OBJECTIVE: VITAL SIGNS: Temperature 99.1, heart rate 101, blood pressure 103/66. LUNGS: Clear to auscultation. CARDIAC: Regular rate and rhythm without murmur or gallop. ABDOMEN: Soft. Good bowel sounds. EXTREMITIES: Unremarkable. LABORATORY DATA: White count 12 and hemoglobin 7.5. Sodium 138, potassium 4.4, BUN and creatinine 9 and 0.44. The patient states that she feels full, but her abdomen is soft, and she has good bowel sounds. ASSESSMENT AND PLAN: 1. Abdominal abscess, status post percutaneous drainage. Abdominal wall abscess, status post incision and drainage. It is healing, and wound looked good yesterday. 2. Malnutrition, on TPN as she is not taking enough oral calories. 3. Deconditioning. We will plan on her going to rehab hopefully today or Saturday, see how things look tomorrow. 4. There are mildly dilated loops of small bowel seen on today's CAT scan. Continue irrigation of the drain and observation. Repeat her CAT scan next week. Go to rehab soon. Job ID: [id number]
[2019-01-29 19:41] LABS: Bacteria/HPF 3+ HPF (None Seen); Bilirubin Negative (Negative); Blood, Urine 3+ (Negative); Calcium Oxalate Crystals 4+ HPF (None Seen); Clarity Turbid (Clear); Glucose, Urine (Dipstick) Normal (Negative); Leukocyte 250 Leu/uL (Negative); Nitrite Negative (Negative); Protein, Urine (Dipstick) Negative (Neg-Trace); RBC/HPF Greater than 50 HPF (0-3); Squamous Epithelial None Seen HPF (0-3); Urobilinogen Normal mg/dL (Less than 2); WBC/HPF Greater than 50 HPF (0-3)
[2019-01-29] MEDS: Gabapentin 300 MG CAP PO SCH (20:27)
[2019-01-29] MEDS: rOPINIRole HCl 1 MG TAB PO SCH (20:27)
[2019-01-29] MEDS: Enoxaparin Sodium 40 MG/0.4 ML SYRINGE SC SCH (20:28)
[2019-01-29] MEDS: MULTITRACE IV SCH (22:43)
[2019-01-29] MEDS: MULTIVITAMINS IV SCH (22:43)
[2019-01-29] MEDS: POTASSIUM ACETATE IV SCH (22:43)
[2019-01-29] MEDS: [UNRECOGNIZED DRUG - OTHER] IV SCH (22:43)
[2019-01-30] MEDS: Piperacillin/Tazobactam 4.5 GM in Sodium Chloride 0.9% 100 ML IVPB SCH ×4 (05:32→23:18)
[2019-01-30] MEDS: Levothyroxine Sodium 112 MCG TAB PO SCH (05:32)
[2019-01-30] MEDS: HYDROcodone/Acetaminophen 10/325 mg Tablet PO PRN ×3 (05:39→15:35)
[2019-01-30 08:25] LABS: #Basophils 0.1 thou/uL (0.0-0.2); #Eosinphils 0.1 thou/uL (0.0-0.7); #Lymphocytes 2.1 thou/uL (1.20-3.40); #Monocytes 0.5 thou/uL (0.11-0.59); #Neutrophils 8.2 thou/uL (1.40-6.50); %Basophils 0.5 % (0.0-1.0); %Eosinophils 1.1 % (0.0-10.0); %Lymphocytes 19.2 % (21.0-51.0); %Monocytes 4.4 % (0.0-10.0); %Neutrophils 74.9 % (42.0-75.0); Hemoglobin 7.4 g/dL (12.0-16.0); Mean Corpuscular Volume 90.4 fL (78.0-98.0); Mean Platelet Volume 7.3 fL (7.4-10.4); Platelet Count 353 thou/uL (130-400); RBC Distribution Width 17.9 % (11.5-14.5); Red Blood Cell (RBC) Count 2.66 mill/uL (4.20-5.40)
[2019-01-30 08:34] LABS: Anion Gap 8 mmol/L (10-20); BUN (Urea Nitrogen) 10 mg/dL (9.8-20.1); Calc. Creatinine Clearance 160 mL/min (70-130); Calcium 7.5 mg/dL (7.8-10.44); Carbon Dioxide 28 mmol/L (23-31); Chloride 102 mmol/L (98-107); Estimated GFR-MDRD Greater than 90; Glucose 114 mg/dL (80-115); Potassium 4.4 mmol/L (3.5-5.1); Sodium 134 mmol/L (136-145)
[2019-01-30] MEDS: Multivitamins CHEW w/Iron Tablet PO SCH (09:38)
[2019-01-30] MEDS: Zinc Sulfate 220 MG CAP PO SCH (09:39)
[2019-01-30] MEDS: Famotidine 20 MG TAB PO SCH (09:39)
[2019-01-30] MEDS: levETIRAcetam 500 MG TAB PO SCH ×2 (09:39→21:38)
[2019-01-30] MEDS: Morphine 2 MG/ML SYRINGE SLOW IVP PRN (10:39)
--- NOTE | 2019-01-30 12:25 | PRG ---
DATE OF SERVICE: 01/30/2019 SUBJECTIVE: Arcelia Chase is doing well today. Dr. Ansari performed manipulation of her CT drain and was able to drain another fluid collection. Cultures pending from that. The patient had a bowel movement, passed flatus yesterday. She continues on TPN and she is not taking adequate calories. OBJECTIVE: LUNGS: Clear to auscultation. CARDIAC: Regular rate and rhythm. No murmur or gallop. ABDOMEN: Soft. Bowel sounds present. Wound VACs were changed today. The right lower quadrant wound is smaller and wound VAC will be discontinued from that one. The upper midline wound VAC will continue. This wound is closing, smaller. She probably will have an incisional hernia from this. We will try to avoid operation. CT-guided drainage tube for subdiaphragmatic collection, repositioned yesterday, and after that repositioning, she has drained 20 mL in the last 24 hours. At the time of repositioning, she had over 120 mL. Cultures are pending. The patient continues on Zosyn. The patient had some bleeding yesterday and it was uncertain whether it was urethral or vaginal or rectal. A Huang catheter was placed. Urine culture submitted revealing 3+ bacteria, greater than 50 white cells, greater than 50 red cells, negative nitrite, 3+ urine blood. Urine culture pending. Huang catheter output 950 over the last 24 hours. This is clear urine in the bag. The patient reports a bowel movement with bloody output. Of note, she had a colonoscopy prior to her two operations for the right colon resection and revision for the leak. There was no concern for malignancy. Endoscopic evaluation not warranted. We will observe this for this time. LABORATORY DATA: This morning, hemoglobin 7.4 today, 7.5 yesterday. White count 11. Sodium 134, potassium 4.4. ASSESSMENT AND PLAN: 1. Rectal bleeding of uncertain etiology. she has not dropped her hemoglobin. We will continue to monitor this, keep her in the hospital over the weekend. We were planning to send her to rehab. We will hold that considering the above occurrences. 2. Incontinent of stool and urine. This has been evaluated preoperatively with thoracic and lumbar MRI, seen by Dr. Emiliano Montanez. There is no neurological explanation for incontinence, but she has been dealing with this for many years. Consideration for future colostomy can be given but not at this time. 3. Malnutrition. She is not taking adequate calories despite functioning GI tract. CAT scan recently for reposition of her drain and re-evaluation of drain revealed some air-fluid levels, but she is having bowel movements, passing flatus, and not having nausea or vomiting. She is taking nutritional supplements 2 to 3 times a day. Continue TPN as she is not taking adequate oral calorie intake. 4. Deconditioning. She still needs maximal assistance. She is approved to go to rehab, but with the above issues, we will watch her over the weekend. 5. Bariatric status, avoiding NSAIDs. Job ID: [id number]
[2019-01-30] MEDS ORDERED: HYDROcodone/Acetaminophen 10/325 mg Tablet PO PRN ×2 (21:17)
[2019-01-30] MEDS: rOPINIRole HCl 1 MG TAB PO SCH (21:37)
[2019-01-30] MEDS: Enoxaparin Sodium 40 MG/0.4 ML SYRINGE SC SCH (21:38)
[2019-01-30] MEDS: Gabapentin 300 MG CAP PO SCH (21:38)
[2019-01-30] MEDS: MULTIVITAMINS IV SCH (22:16)
[2019-01-30] MEDS: [UNRECOGNIZED DRUG - OTHER] IV SCH (22:16)
[2019-01-30] MEDS: POTASSIUM ACETATE IV SCH (22:16)
[2019-01-30] MEDS: MULTITRACE IV SCH (22:16)
--- NOTE | 2019-01-31 00:35 | PRG ---
DATE OF SERVICE: 01/30/2019 SUBJECTIVE: The patient was seen this evening during rounds. We are following the patient for Dr. Wang over the weekend. She is postoperative day 10 for I and D of the left upper quadrant subcu abscess and [place] drain placement and she is postoperative day 1 for right subdiaphragmatic drain placement by Radiology. Upon my rounding this evening, the patient was sitting up in bed and taking medications from nursing. Nursing reported no acute events. OBJECTIVE: VITAL SIGNS: Temperature 98.6, pulse 94, respirations 16, oxygen saturation 95% on room air, blood pressure 104/68. GENERAL: Well-appearing elderly female, sitting up in bed with no signs of acute distress. PULMONARY: Equal chest rise and fall. No signs of acute respiratory distress. ASSESSMENT: 1. Postop day 10 status post incision and drainage of right lower quadrant abdominal abscess with [place] placement. 2. Postprocedure day #1, status post right subdiaphragmatic perc drain placement by Radiology. PLAN: Continue current regular diet with supplementation. Continue physical and occupational therapy. Continue IV Zosyn. Job ID: [id number]
[2019-01-31] MEDS: Levothyroxine Sodium 112 MCG TAB PO SCH (05:41)
[2019-01-31] MEDS: Piperacillin/Tazobactam 4.5 GM in Sodium Chloride 0.9% 100 ML IVPB SCH (05:42)
[2019-01-31 06:08] LABS: #Eosinphils 0.2 thou/uL (0.0-0.7); #Lymphocytes 2.6 thou/uL (1.20-3.40); #Monocytes 0.8 thou/uL (0.11-0.59); #Neutrophils 8.1 thou/uL (1.40-6.50); %Basophils 0.1 % (0.0-1.0); %Eosinophils 1.8 % (0.0-10.0); %Lymphocytes 22.4 % (21.0-51.0); %Monocytes 6.4 % (0.0-10.0); %Neutrophils 69.2 % (42.0-75.0); Hemoglobin 7.5 g/dL (12.0-16.0); Mean Corpuscular HGB CONC 32.1 g/dL (32.0-36.0); Mean Corpuscular Hemoglobin 28.8 pg (27.0-31.0); Mean Corpuscular Volume 89.7 fL (78.0-98.0); Mean Platelet Volume 7.2 fL (7.4-10.4); Platelet Count 383 thou/uL (130-400); RBC Distribution Width 17.5 % (11.5-14.5); White Blood Cell (WBC) Count 11.7 thou/uL (4.8-10.8)
[2019-01-31 06:24] LABS: Anion Gap 9 mmol/L (10-20); BUN (Urea Nitrogen) 14 mg/dL (9.8-20.1); Calc. Creatinine Clearance 152 mL/min (70-130); Calcium 7.7 mg/dL (7.8-10.44); Carbon Dioxide 28 mmol/L (23-31); Chloride 102 mmol/L (98-107); Estimated GFR-MDRD Greater than 90; Glucose 99 mg/dL (80-115); Potassium 4.2 mmol/L (3.5-5.1); Sodium 135 mmol/L (136-145)
[2019-01-31] MEDS: Zinc Sulfate 220 MG CAP PO SCH (09:30)
[2019-01-31] MEDS: Famotidine 20 MG TAB PO SCH (09:30)
[2019-01-31] MEDS: Multivitamins CHEW w/Iron Tablet PO SCH (09:30)
[2019-01-31] MEDS: levETIRAcetam 500 MG TAB PO SCH ×2 (09:33→20:14)
[2019-01-31] MEDS: traMADol HCl 50 MG TAB PO PRN (11:07)
[2019-01-31] MEDS ORDERED: HYDROcodone/Acetaminophen 10/325 mg Tablet PO SCH (12:00)
[2019-01-31] MEDS: HYDROcodone/Acetaminophen 10/325 mg Tablet PO SCH ×3 (12:58→20:14)
[2019-01-31] MEDS ORDERED: Calcium Chloride 1 GM/10 ML Abboject SYRINGE IVP SCH (13:00)
[2019-01-31] MEDS ORDERED: Calcium Gluconate 4.6 MEQ in Sodium Chloride 0.9% 100 ML IVPB SCH (14:15)
--- NOTE | 2019-01-31 14:24 | PRG ---
DATE OF SERVICE: 01/31/2019 This is Tricia Tomlin NP dictating a report for Dr. Del Rio. SUBJECTIVE: The patient remains on the surgical floor. The patient is complaining of some right upper quadrant abdominal pain. The patient had a manipulation of her CT drain yesterday, was able to drain another fluid collection. The patient also reports some bright red rectal bleeding with bowel movements. The patient's hemoglobin remains stable. The patient is being followed by [facility] Services, Dr. Del Rio over the weekend. The patient also is postop day #11 for I and D of a left upper quadrant subcutaneous abscess and [place] drain placement. The patient is tolerating a regular diet. OBJECTIVE: VITAL SIGNS: Blood pressure 108/70, pulse 96, temperature 98.2, respirations 16, SpO2 of 96% on room air. GENERAL: Well-appearing, elderly female, lying in hospital bed, in moderate distress due to some right upper quadrant pain. PULMONARY: Equal chest rise and fall, no respiratory distress, breath sounds are clear. ABDOMEN: Soft, nontender, nondistended. The patient has had 41 mL out of her perc drain in the last 24 hours. : The patient continues to have good urinary output. LABORATORY DATA: WBC 11.7, RBC 2.60, hemoglobin 7.5, hematocrit 23.3, platelets 383. Sodium 135, potassium 4.2, chloride 102, BUN 14, creatinine 0.44, estimated GFR greater than 90, glucose 99, calcium 7.7. DIAGNOSTICS: There are no new diagnostics to review today. ASSESSMENT: 1. Postop day #11 status post incision and drainage of right lower quadrant abdominal abscess with [place] placement. 2. Postprocedure day #2 status post right subdiaphragmatic perc drain placement by Radiology. 3. Hypocalcemia. PLAN: Replace electrolytes. Continue regular diet as tolerated. Continue TPN and supplements, Ensure and Benson. Continue DVT prophylaxis with chemical and mechanical. Continue to monitor the patient's hemoglobin and hematocrit. We will schedule the patient [place] as she continues to have pain. Continue IV antibiotics. We will continue physical and occupational therapy. The patient was examined by Dr. Del Rio, during morning rounds. The plan was discussed with the patient's family, who agrees. Job ID: [id number]
--- NOTE | 2019-01-31 17:24 | EKG ---
Test Reason : Blood Pressure : / mmHG Vent. Rate : 109 BPM Atrial Rate : 109 BPM P-R Int : 152 ms QRS Dur : 080 ms QT Int : 356 ms P-R-T Axes : 051 -41 177 degrees QTc Int : 479 ms Sinus tachycardia Left axis deviation Possible Anterior infarct , age undetermined Abnormal ECG Confirmed by LAURA CRUZ DO ([id number]), editor news CARLA ARCE ([id number]) on 01/31/2019 5:24:05 PM Referred By: Confirmed By:LAURA CRUZ DO
[2019-01-31] MEDS: Ferrous Sulfate 325 MG TAB PO SCH (17:37)
[2019-01-31] MEDS: Morphine 4 MG/ML VIAL SLOW IVP PRN (20:13)
[2019-01-31] MEDS: Gabapentin 300 MG CAP PO SCH (20:14)
[2019-01-31] MEDS: rOPINIRole HCl 1 MG TAB PO SCH (20:14)
[2019-01-31] MEDS: Enoxaparin Sodium 40 MG/0.4 ML SYRINGE SC SCH (20:15)
[2019-01-31] MEDS: Ascorbic Acid 500 mg Chewable Tablet PO SCH (20:15)
--- NOTE | 2019-01-31 22:11 | PRG ---
DATE OF SERVICE: SUBJECTIVE: The patient was seen this evening, lying in bed, asleep with no signs of acute distress. Nursing reported no acute events. OBJECTIVE: VITAL SIGNS: Temperature 98.4, pulse 84, respirations 18, oxygen saturation 96% on room air, blood pressure 125/76. GENERAL: Well-appearing elderly female, lying in bed with no signs of acute distress. PULMONARY: Equal chest rise and fall. No signs of acute respiratory distress. ASSESSMENT: 1. Postoperative day 11, status post I and D of left upper quadrant subcutaneous abscess and [place] drain placement. 2. Postoperative day 2, status post right subdiaphragmatic drain placement by Radiology. 3. Rectal bleeding, improved. PLAN: Continue current regular diet with TPN as well as supplementation. Continue Zosyn. Continue current pain regimen. Continue physical and occupational therapy. Job ID: [id number]
[2019-01-31] MEDS: MULTIVITAMINS IV SCH (22:38)
[2019-01-31] MEDS: MULTITRACE IV SCH (22:38)
[2019-01-31] MEDS: POTASSIUM ACETATE IV SCH (22:38)
[2019-01-31] MEDS: [UNRECOGNIZED DRUG - OTHER] IV SCH (22:38)
[2019-02-01] MEDS: HYDROcodone/Acetaminophen 10/325 mg Tablet PO SCH ×6 (01:43→20:51)
[2019-02-01] MEDS: Piperacillin/Tazobactam 4.5 GM in Sodium Chloride 0.9% 100 ML IVPB SCH ×4 (06:06→23:18)
[2019-02-01] MEDS: Levothyroxine Sodium 112 MCG TAB PO SCH (06:07)
[2019-02-01 07:24] LABS: #Basophils 0.1 thou/uL (0.0-0.2); #Eosinphils 0.2 thou/uL (0.0-0.7); #Neutrophils 8.3 thou/uL (1.40-6.50); %Basophils 0.5 % (0.0-1.0); %Eosinophils 1.3 % (0.0-10.0); %Lymphocytes 24.1 % (21.0-51.0); %Monocytes 7.6 % (0.0-10.0); %Neutrophils 66.5 % (42.0-75.0); Hemoglobin 8.2 g/dL (12.0-16.0); Mean Corpuscular HGB CONC 31.4 g/dL (32.0-36.0); Mean Corpuscular Hemoglobin 27.8 pg (27.0-31.0); Mean Corpuscular Volume 88.5 fL (78.0-98.0); Mean Platelet Volume 7.2 fL (7.4-10.4); Platelet Count 442 thou/uL (130-400); RBC Distribution Width 17.4 % (11.5-14.5); Red Blood Cell (RBC) Count 2.95 mill/uL (4.20-5.40); White Blood Cell (WBC) Count 12.5 thou/uL (4.8-10.8)
[2019-02-01 07:31] LABS: Anion Gap 12 mmol/L (10-20); BUN (Urea Nitrogen) 12 mg/dL (9.8-20.1); Calc. Creatinine Clearance 152 mL/min (70-130); Calcium 8.3 mg/dL (7.8-10.44); Carbon Dioxide 26 mmol/L (23-31); Chloride 101 mmol/L (98-107); Estimated GFR-MDRD Greater than 90; Glucose 87 mg/dL (80-115); Potassium 4.4 mmol/L (3.5-5.1); Sodium 135 mmol/L (136-145)
[2019-02-01] MEDS: Ferrous Sulfate 325 MG TAB PO SCH ×2 (08:39→17:21)
[2019-02-01] MEDS: Multivitamins CHEW w/Iron Tablet PO SCH (08:40)
[2019-02-01] MEDS: levETIRAcetam 500 MG TAB PO SCH ×2 (08:40→20:52)
[2019-02-01] MEDS: Famotidine 20 MG TAB PO SCH (08:40)
[2019-02-01] MEDS: Ascorbic Acid 500 mg Chewable Tablet PO SCH ×2 (08:40→20:52)
[2019-02-01] MEDS: Zinc Sulfate 220 MG CAP PO SCH (08:41)
[2019-02-01] MEDS: Morphine 2 MG/ML SYRINGE SLOW IVP PRN ×2 (15:43→18:08)
--- NOTE | 2019-02-01 17:00 | PRG ---
DATE OF SERVICE: 02/01/2019 This is Tricia Tomlin NP dictating a report for Dr. Del Rio. SUBJECTIVE: The patient remains on the surgical floor. The patient's pain is well controlled at this time. The patient voices no complaints. The patient is postop day #12 from an irrigation and drainage of left upper quadrant subcutaneous abscess and [place] drain placement. The patient continues to tolerate regular diet. The patient continues to receive TPN, Ensure, and Benson. The patient has had good urinary output. The patient had 11 mL out of her perc drain overnight. OBJECTIVE: VITAL SIGNS: Temperature 98.7, pulse 93, respirations 18, SpO2 of 95% on room air, blood pressure 113/71. GENERAL: Well-appearing, elderly female, lying in hospital bed, in no acute distress. PULMONARY: Equal chest rise and fall, no respiratory distress. ABDOMEN: Soft, nontender, nondistended. Perc drain in place in the right upper quadrant. LABORATORY DATA: WBC 12.5, RBC 2.95, hemoglobin 8.2, hematocrit 26.1, platelets 442. Sodium 135, potassium 4.4, chloride 101, BUN 12, creatinine 0.44, estimated GFR greater than 90, glucose 87, calcium 8.3. DIAGNOSTICS: There are no new diagnostics to review. ASSESSMENT: 1. Postoperative day #12, status post incision and drainage of right lower quadrant abdominal abscess with [place] placement. 2. Postoperative day #3, status post right subdiaphragmatic perc drain placement by Radiology. PLAN: Continue regular diet as tolerated. Continue TPN and supplements of Ensure and Benson. Continue to have Physical and Occupational Therapy work with the patient. Continue IV antibiotics. The patient was examined by Dr. Del Rio during morning rounds. The plan was discussed with the patient, who agrees. Job ID: [id number]
[2019-02-01] MEDS: Gabapentin 300 MG CAP PO SCH (20:51)
[2019-02-01] MEDS: Enoxaparin Sodium 40 MG/0.4 ML SYRINGE SC SCH (20:52)
[2019-02-01] MEDS: rOPINIRole HCl 1 MG TAB PO SCH (20:52)
[2019-02-01] MEDS: Morphine 4 MG/ML VIAL SLOW IVP PRN (20:53)
[2019-02-01] MEDS: MULTITRACE IV SCH (23:03)
[2019-02-01] MEDS: POTASSIUM ACETATE IV SCH (23:03)
[2019-02-01] MEDS: [UNRECOGNIZED DRUG - OTHER] IV SCH (23:03)
[2019-02-01] MEDS: MULTIVITAMINS IV SCH (23:03)
[2019-02-02] MEDS: HYDROcodone/Acetaminophen 10/325 mg Tablet PO SCH ×5 (00:58→16:38)
--- NOTE | 2019-02-02 01:09 | PRG ---
DATE OF SERVICE: 02/01/2019 SUBJECTIVE: The patient was seen this evening, sitting up in bed with no signs of acute distress. She was resting comfortably and asleep at the time of my evaluation. OBJECTIVE: VITAL SIGNS: Temperature 98.4, pulse 100, respirations 16, oxygen saturation 98% on room air, and blood pressure 96/60. GENERAL: Elderly female, sitting up in bed with no signs of acute distress and asleep. PULMONARY: Equal chest rise and fall. No signs of acute respiratory distress. ASSESSMENT: Postoperative day #12 status post I and D of the right lower quadrant subcutaneous abscess with drain placement and postoperative day #3 status post right subdiaphragmatic drain placement for intraabdominal abscess. PLAN: Continue current regular diet with supplementation and TPN. Continue Zosyn. Continue physical and occupational therapy. Job ID: [id number]
[2019-02-02] MEDS: Levothyroxine Sodium 112 MCG TAB PO SCH (05:19)
[2019-02-02] MEDS: Piperacillin/Tazobactam 4.5 GM in Sodium Chloride 0.9% 100 ML IVPB SCH (05:20)
[2019-02-02 06:09] LABS: #Basophils 0.1 thou/uL (0.0-0.2); #Eosinphils 0.2 thou/uL (0.0-0.7); #Lymphocytes 3.1 thou/uL (1.20-3.40); #Monocytes 1.1 thou/uL (0.11-0.59); #Neutrophils 8.1 thou/uL (1.40-6.50); %Basophils 0.5 % (0.0-1.0); %Eosinophils 1.3 % (0.0-10.0); %Lymphocytes 25.1 % (21.0-51.0); %Monocytes 8.5 % (0.0-10.0); %Neutrophils 64.6 % (42.0-75.0); Hemoglobin 7.5 g/dL (12.0-16.0); Mean Corpuscular HGB CONC 31.5 g/dL (32.0-36.0); Mean Corpuscular Hemoglobin 28.1 pg (27.0-31.0); Mean Corpuscular Volume 89.3 fL (78.0-98.0); Mean Platelet Volume 7.1 fL (7.4-10.4); Platelet Count 417 thou/uL (130-400); RBC Distribution Width 17.8 % (11.5-14.5); Red Blood Cell (RBC) Count 2.68 mill/uL (4.20-5.40); White Blood Cell (WBC) Count 12.5 thou/uL (4.8-10.8)
[2019-02-02 06:49] LABS: ALT (SGPT) 217 U/L (8-55); AST (SGOT) 230 U/L (5-34); Albumin 2.3 g/dL (3.4-4.8); Alkaline Phosphatase 245 U/L (40-110); Anion Gap 9 mmol/L (10-20); BUN (Urea Nitrogen) 18 mg/dL (9.8-20.1); Bilirubin, Total 0.3 mg/dL (0.2-1.2); Calc. Creatinine Clearance 143 mL/min (70-130); Calcium 7.9 mg/dL (7.8-10.44); Carbon Dioxide 27 mmol/L (23-31); Chloride 105 mmol/L (98-107); Estimated GFR-MDRD Greater than 90; Globulin 3.8 g/dL (2.4-3.5); Glucose 82 mg/dL (80-115); Potassium 4.5 mmol/L (3.5-5.1); Protein, Total 6.1 g/dL (6.0-8.3); Sodium 136 mmol/L (136-145)
[2019-02-02] MEDS: Ascorbic Acid 500 mg Chewable Tablet PO SCH (08:48)
[2019-02-02] MEDS: Multivitamins CHEW w/Iron Tablet PO SCH (08:48)
[2019-02-02] MEDS: Famotidine 20 MG TAB PO SCH (08:48)
[2019-02-02] MEDS: Zinc Sulfate 220 MG CAP PO SCH (08:48)
[2019-02-02] MEDS: Ferrous Sulfate 325 MG TAB PO SCH ×2 (08:48→16:38)
[2019-02-02] MEDS: levETIRAcetam 500 MG TAB PO SCH (08:48)
--- NOTE | 2019-02-02 10:43 | CT ---
CT ABDOMEN AND PELVIS WITHOUT IV CONTRAST: Date: 02/02/19 Oral contrast was not administered. INDICATION: Follow-up abscess and drainage. HISTORY: Colon resection 12/10/18. Intraabdominal abscesses and subdiaphragmatic abscesses previously describ ed. Comparison made to most recent CT abdomen and pelvis dated 01/28/19 and 01/21/19. FINDINGS: Right pleural effusion and right basilar atelectasis again noted without significant interval change. A pigtail drainage catheter is seen with pigtail under the right hemidiaphragm in a subdiaphragmatic space between diaphragm and liver. Tiny amount of residual fluid is seen in this space. This subdiaph ragmatic collection has significantly decreased. The small abscess collection inferior to the right lobe of the liver along the right abdominal wall i s again seen with fluid and gas present. It is similar in size to 01/28/19 measuring 4.0 cm AP dimens ion today in the axial plane. The loculated fluid collection in the mid mesentery and lower abdomen described previously is again s een. This collection is slightly decreased in size measuring 2.0 x 4.0 cm today, whereas it previousl y measured 3.0 x 5.2 cm. There is a bilobed collection in the pelvis which communicates inferiorly. This collection compresse s the anterior border of the uterus and also compresses the superior wall of the urinary bladder. Thi s bilobed collection does not appear significantly changed. The two collections producing a bilobed c onfiguration each measure approximately 6 x 6 cm in the axial plane. Huang catheter is in place and the bladder is mostly contracted with air seen within the bladder lume n. Liver, spleen, and pancreas are unremarkable. Postoperative changes at the EG junction and stomach ag ain noted. Small bowel loops show nonspecific distention. Nonspecific haziness and mural thickening o f left colon again noted. Densities in the subcutaneous adipose tissue which are presumably postoperative in nature do not appe ar significantly changed. IMPRESSION: 1. Right pleural effusion, right basilar atelectasis, or consolidation is unchanged. 2. The right subdiaphragmatic fluid collection is significantly decreased. Pigtail catheter resides between the liver and diaphragm with a tiny amount of fluid within this space. 3. The abscess collection inferior to the right lobe of the liver along the right lateral peritoneum is again seen without significant change. 4. Fluid collection in the mid mesentery is slightly decreased. 5. The large bilobed fluid collection in the pelvis does not appear significantly changed. POS: DANIELLE
--- NOTE | 2019-02-02 11:29 | PRG ---
DATE OF SERVICE: 02/02/2019 SUBJECTIVE: Arcelia Chase is doing well today. She is tolerating her diet, although her consumption by calorie count is still 600 to 800 calories a day. She still is on the TPN. She states she had a better day yesterday. She does complain of chronic back pain and continues to have that. She did undergo a CAT scan of the abdomen and pelvis today to follow up the abdominal fluid collections. The abdominal fluid collections subdiaphragmatic have resolved. The drainage catheter is putting out clear fluid about 10 mL in last 24 hours and 19 mL in the last 24 hours prior to that. This was not sent for culture when it was obtained on Saturday. As this was clear fluid and output has been minimal, I have removed her drain. The CAT scan also demonstrated a fluid collection, mesenteric, separate from the ileocolic anastomosis, and this is decreased in size. She still has a pelvic fluid collections, which are probably introduced iatrogenic during irrigation of her abdominal wall and that do not appear to look like abscesses. The patient remains afebrile, 98.8 degrees, heart rate 95, respiratory rate 16, and blood pressure 107/65. This morning, her white count is 12, hemoglobin is 7.5, and her basic metabolic is normal. She has been on Zosyn for over 2 weeks. Her plan at this time would be to change her Zosyn to p.o. Augmentin and discontinue intravenous antibiotics. We would also add Diflucan p.o. She did have what appears to be vaginal bleeding. To ascertain this, a Huang catheter was placed and there was no blood in her urine. Perianal area was checked this morning. There are no hemorrhoids. She has had a colonoscopy in the last 2 months that was normal from evaluation. On evaluation, her vagina looks like the blood is vaginal. She has not had a prior hysterectomy. I have talked to Dr. Nita Bradford, who will see her today for a vaginal exam and probably follow up as an outpatient for this. She has not required transfusions for this. OBJECTIVE: LUNGS: Clear to auscultation. CARDIAC: Regular rate and rhythm without murmur or gallop. ABDOMEN: Soft and nontender. Her wounds in upper midline are granulating, much smaller in size. Her right lower quadrant wound is granulating and healing. EXTREMITIES: Unremarkable. ASSESSMENT AND PLAN: 1. Intraabdominal fluid collections. Her CT guided drain has been removed. We will continue Augmentin for another 7 days p.o. We would add Diflucan for 7 days. 2. Vaginal bleeding, evaluation by Dr. Nita Bradford. 3. Huang catheter. We will plan removal. 4. Deconditioning. Plan transfer to rehab. 5. Abdominal wounds. Continue wound VAC care. These wounds are closing and surgical intervention is less likely. 6. Intramesenteric fluid collection is smaller in size. Pelvic fluid collection is not infected by CAT scan. We will continue to observe. If she clinically does well and does not have any more problems, I will not plan to repeat her CAT scans. We will plan to send her to rehab today. Job ID: [id number]
--- NOTE | 2019-02-02 13:46 | CON ---
DATE OF CONSULTATION: 02/02/2019 CONSULTING PHYSICIAN: Lai Wang MD, General Surgery. CHIEF COMPLAINT: Vaginal bleeding. HISTORY OF PRESENT ILLNESS: This is a 68-year-old, para 3, who was admitted for abdominal pain related to complications of previous colectomy. She was noted to have right lower quadrant intraabdominal abscess, and she underwent a washout. She is actually ready for discharge to rehab today; however, reports having some vaginal bleeding. She reports that this bleeding has been going on for about a week, but is very light and has never saturated a pad. It was unclear whether this was coming from the bladder, vagina, or rectum. However, there were no hemorrhoids and there was no blood with Huang placement. She reports some lower abdominal cramping, but is unsure if that is related to her other issues or this bleeding. PAST MEDICAL HISTORY: 1. Focal seizures. 2. Hypoglycemia. 3. Hypothyroidism: Status post thyroid cancer and radiation. 4. Hypertension. 5. Osteoarthritis. 6. Long history of urine and fecal incontinence. PAST SURGICAL HISTORY: 1. Gastric bypass. 2. Hiatal hernia surgery. 3. Cholecystectomy. 4. Thyroidectomy. 5. Robotic right colectomy, anastomosis with subsequent revisions, resections, and washouts. ALLERGIES: NSAIDS AND MORPHINE. SOCIAL HISTORY: Negative for tobacco, alcohol, or drug abuse. CIVIL PROJECT ENGINEER HISTORY: She has had 3 prior vaginal deliveries. She has not had a Pap smear in many years, but denies any history of abnormals. She has been menopausal for 20 years. MEDICATIONS: 1. Requip 1 mg at night. 2. Keppra 500 mg b.i.d. 3. Potassium daily. 4. Omeprazole 20 mg daily. 5. Levothyroxine 112 mcg daily. 6. Iron daily. 7. Hydrocodone 10/325 for back pain. 8. Gabapentin. 9. Keflex. 10. Tylenol. FAMILY HISTORY: Positive for abdominal cancer on her mother's side, but she is unsure of the origin. Denies any history of breast cancer. REVIEW OF SYSTEMS: Negative for head, eyes, ears, nose, and throat; cardiovascular; respiratory; GI; ; neuropsychiatric; musculoskeletal; skin; or constitutional symptoms other than mentioned above. PHYSICAL EXAMINATION: VITAL SIGNS: Blood pressure 107/65, pulse 100, respiratory rate 16, and temperature 98.8. GENERAL: Awake and alert, in no acute distress. CHEST: Nonlabored. ABDOMEN: Significant redundant skin, soft and appropriately tender to palpation. Multiple incisions from previous surgeries, currently uncovered, but with no evidence of infection. PELVIC: Pad examined with minimal bleeding since yesterday. Exam otherwise deferred. ASSESSMENT AND PLAN: A 68-year-old para 3, with postmenopausal bleeding. I discussed the causes of postmenopausal bleeding, and given her current discomfort and state, I feel that it would be easier to do a full examination with transvaginal ultrasound plus or minus endometrial biopsy at one time in the clinic. She is scheduled to be discharged today for rehab for the next week or so and can follow up with Dr. Bassam Bedoya or other available HATCH SUPERVISOR at [facility] within a week or so for evaluation of her postmenopausal bleeding. I did discuss that if her bleeding picks up to where she is soaking a pad, she will need to be seen sooner. However, since the bleeding is minimal at this time and she is having significant discomfort from her recent surgeries, it would be reasonable to have her follow up next week on an outpatient basis. The patient and her are in agreement and will follow up as recommended. Job ID: [id number] [id number]
[2019-02-02] MEDS: traMADol HCl 50 MG TAB PO PRN (15:04)
[2019-02-02 16:55] VITALS: BP 100/66; TEMP 98.9
--- NOTE | 2019-02-02 17:17 | DIS ---
DATE OF ADMISSION: 01/20/2019 DATE OF DISCHARGE: 02/02/2019 DISPOSITION: Transferred to rehab on 02/02/2019. DISCHARGE DIAGNOSES: 1. Bascule of right colon, status post 12/10/2018 robotic laparoscopic right colectomy, primary anastomosis with 12/14/2018, reoperation for ileocolonic anastomotic leak and poor IV access, dissecting the old anastomosis, abdominal washout, and reforming the anastomosis, discharged home and then, now on this admission, admitted with subdiaphragmatic abscess, abdominal wall abscess, right lower quadrant. 2. Malnutrition. 3. Bariatric surgery status, history of Taryn-en-Y gastric bypass. 4. Fecal and urinary incontinence of uncertain etiology, has been evaluated by Dr. Emiliano Montanez with MRI thoracic lumbar spine without neurological etiology evident. 5. Vaginal bleeding seen by Dr. Nita Bradford this hospitalization day of discharge and to follow up as an outpatient, Dr. Elaine for vaginal exam. No history of hysterectomy. DISCHARGE MEDICATIONS: 1. Augmentin 500 mg b.i.d. 2. Diflucan 100 mg a day. 3. Multivitamins daily. 4. Thiamin daily p.o. 5. Zinc sulfate 220 mg a day. 6. Tramadol p.r.n. pain, although she has not taken this. She has been on long-term narcotics. 7. [place] for chronic back pain. 8. MiraLAX daily. 9. Keppra 500 mg b.i.d. 10. Levothyroxine 112 mcg daily. 11. [place] 10/325 as needed p.r.n. pain. 12. Gabapentin 600 mg at bedtime. 13. Ferrous sulfate 325 b.i.d. 14. Pepcid 20 mg daily. 15. 40 mg of Lovenox daily. 16. Tylenol p.r.n. pain. DIAGNOSES: 1. Severe deconditioning needs rehab. 2. Open wounds abdomen undergoing wound VAC, central lower wound completely healed, waiting to epithelialize over the surface. Upper wound healing and granulating. Right lower quadrant wound from drainage, wound VAC. This is healing, closing, and granulating. 3. Pelvic fluid collection probably iatrogenic, decreasing in size with time. No intervention necessary. 4. Mesenteric fluid collection not accessible while CT-guided drainage has been decreasing at this time, none of these fluid collections are proximity to the ileocolic anastomosis. HISTORY: 1. A 68-year-old female presenting with a bascule, had fecal and urinary incontinence. I first asked Dr. Emiliano Montanez to see her and undergoing thoracic lumbar spine MRI, noting absence of any neurogenic cause of her incontinence. The patient will frequently ask for Lomotil, but she is not having frequent diarrhea and this has been avoided to prevent constipation. She has one bowel movement every 2 or 3 days. 2. Open wounds, abdomen. These are granulating, healing, and adjacent fluid collections are resolving. The patient presented after undergoing the above-mentioned operation. She was readmitted because of abdominal wall abscess. CAT scan imaging reveals subdiaphragmatic fluid collections and the right lower quadrant abscess. She was taken to the operating room immediately, where the right lower quadrant abscess was drained, irrigated pulse irrigated, probably accounting for the pelvic fluid as her drain site was palpated and suction placed in this and aspirated the fluid and then pulse irrigated probably leaving some residual irrigation fluid. A [place] drain was initially placed and eventually removed and the wound vac continued and this wound is granulating and healing. On one occasion, it was debrided at the bedside, but no further surgical intervention is necessary. a. The patient has a midline upper wound. The fascia is probably dehisced, but there is good granulation tissue and is healing. She may have a hernia developing may need to be repaired in the future. 3. Subdiaphragmatic fluid collection. She had a CT-guided drain placed and this fluid collection with multiple enteric organisms, clostridia and streptococcus growing. This process resolved this on followup CAT scan, but adjacent fluid collection did not decompress as the drain was not functioning well. It was exchanged over wire by Interventional Radiology. A new drain placed and the clear fluid that was drained adjacent decompressed completely and the drain was removed on 02/02/2019. The remaining fluid collections in the abdominal cavity decreasing in size. It do not need to be drained. The patient has a chronic anemia and was not transfused. She is not orthostatic. She developed some vaginal bleeding and we were uncertain as to the etiology of this. She has had a colonoscopy a few months prior and inspection of perianal area reveals absence of any hemorrhoidal disease. It was thought that it could be urinary, but a Huang catheter was placed for three or four days and there was no hematuria. She continued to have some old bloody discharge from the vaginal area. She did not drop her hemoglobin, did not require transfusion. Dr. Nita Bradford Gynecology saw her and we will arrange outpatient followup in the weeks to come. She has not had a hysterectomy. The patient has severe deconditioning. We will need to continue therapy for that prior to going home. I have ordered Augmentin 500 b.i.d. and Diflucan 100 daily for next seven days. I do not plan to re-image her abdominal cavity unless there are clinical indications. She should stop her oral antibiotics and antifungals in 7 to 8 days. Follow up in my office in 3 to 4 weeks. Hopefully, she will be discharged home in a week or two. Of note, bariatric surgery status history of open cholecystectomy, history of laparoscopic Taryn-en-Y gastric bypass. Continue vitamin supplementation and thiamine supplementation. Job ID: [id number]
[2019-02-02] MEDS ORDERED: Amoxicillin/Potassium Clav 500 MG TAB PO SCH (21:00)
[2019-02-02] MEDS ORDERED: Thiamine HCl 200 MG/2 ML VIAL SLOW IVP SCH (21:00)
[2019-02-02] MEDS ORDERED: [UNRECOGNIZED DRUG - OTHER] IV SCH (22:00)
[2019-02-02] MEDS ORDERED: POTASSIUM ACETATE IV SCH (22:00)
[2019-02-02] MEDS ORDERED: MULTITRACE IV SCH (22:00)
[2019-02-02] MEDS ORDERED: MULTIVITAMINS IV SCH (22:00)
[2019-02-03] MEDS ORDERED: Fluconazole 100 MG TAB PO SCH (09:00)
== END 2019-02-02 17:45 | DRG 856 ==
LOC: ERS 10:21 → SURG B 13:58
PROVIDERS: ADMIT Specialist; ATTEND Specialist
PROC: 0W9G0ZZ Drainage of Peritoneal Cavity, Open Approach (ICD-10-PCS; principal; 2019-01-20)
PROC: 0J980ZZ Drainage of Abdomen Subcutaneous Tissue and Fascia, Open Approach (ICD-10-PCS; 2019-01-20)
PROC: 3E0336Z Introduction of Nutritional Substance into Peripheral Vein, Percutaneous Approach (ICD-10-PCS; 2019-01-20)
PROC: 0W2GX0Z Change Drainage Device in Peritoneal Cavity, External Approach (ICD-10-PCS; 2019-01-29)
DX: T81.49XA Infection following a procedure, other surgical site, initial encounter (principal); K65.1 Peritoneal abscess; E43 Unspecified severe protein-calorie malnutrition; L02.211 Cutaneous abscess of abdominal wall; E46 Unspecified protein-calorie malnutrition; K62.5 Hemorrhage of anus and rectum; K91.89 Other postprocedural complications and disorders of digestive system; Z68.26 Body mass index [BMI] 26.0-26.9, adult; K59.00 Constipation, unspecified; E87.6 Hypokalemia; N93.9 Abnormal uterine and vaginal bleeding, unspecified; I10 Essential (primary) hypertension; E03.9 Hypothyroidism, unspecified; M19.90 Unspecified osteoarthritis, unspecified site; Z90.49 Acquired absence of other specified parts of digestive tract; Z88.5 Allergy status to narcotic agent; Z88.8 Allergy status to other drugs, medicaments and biological substances; Y83.8 Other surgical procedures as the cause of abnormal reaction of the patient, or of later complication, without mention of misadventure at the time of the procedure; R32 Unspecified urinary incontinence; R15.9 Full incontinence of feces
CPT/HCPCS: 36415; 36416; 49020; 51701; 71045; 74176; 74177; 77002; 80048; 80053; 80061; 81001; 81003; 81015; 83605; 83690; 83735; 84100; 84134; 85025; 85610; 85730; 86850; 86900; 86901; 87040; 87070; 87076; 87077; 87086; 87186; 87205; 93005; 96361; 96365; 96367; 96375; C1729; J1170; J1650; J1885; J2001; J2250; J2270; J2405; J2543; J2550; J2704; J3010; J3370; J3411; J3475; J3480; J3490; J7042; Q0162; Q9967; S0020

== ENCOUNTER 2019-03-20 08:50 | Outpatient (CLI) | payer MEDICARE ==
[2019-03-20] MEDS ORDERED: Iopamidol-370 76% 500 ML 1 ML ONE (09:14)
--- NOTE | 2019-03-20 14:08 | CT ---
CT ABDOMEN AND PELVIS PERFORMED WITH IV CONTRAAST ENHANCEMENT: Date: 03/20/2019 HISTORY: Patient is status post right hemicolectomy. Was in the hospital for over 3 months. Has a history of a bscess and still having pain and tenderness in lower abdomen. There is also a history of cholecystect maxim and hernia repair. COMPARISON: Examination of 02/02/19 and 01/28/19. FINDINGS: The lung bases show some residual pleural thickening within the right base and some scarring. A small right lower lobe pulmonary nodule is seen measuring 5-6 mm. Hiatal hernia is again demonstrated with postoperative changes of the stomach. The liver and spleen are within normal limits of size. The pancreas is mildly atrophic. The gallbladd er has been removed. The ductal dilatation is similar to the previous exam. The fluid collection whic h was along the inferior margin of the right lobe of the liver has resolved. There is some residual s carring present in this area. Right hemicolectomy changes are present. The fluid collection seen in t he mesenteric region is also resolved. The right and left adrenal glands are normal in appearance. An upper pole right renal cyst is again i dentified. No significant periaortic or mesenteric adenopathy. CT of pelvis was performed with contrast. No adenopathy, mass, or fluid collections. The bilobed flui d collection has resolved. IMPRESSION: 1. Postop right hemicolectomy change. The fluid collections seen within the abdomen and pelvis have resolved since the previous exam. No new collections identified. 2. Post cholecystectomy change. 3. Hiatal hernia and postop changes of stomach region. POS: LATISHA
== END 2019-03-20 08:51 | disposition home or self-care (01) ==
LOC: BICCT 08:50
PROVIDERS: ATTEND Specialist
DX: Z48.815 Encounter for surgical aftercare following surgery on the digestive system (principal); Z90.49 Acquired absence of other specified parts of digestive tract; K44.9 Diaphragmatic hernia without obstruction or gangrene
CPT/HCPCS: 74177; Q9967

== ENCOUNTER 2019-11-26 10:50 | Emergency (ER) | payer MEDICARE ==
[2019-11-26] MEDS ORDERED: Morphine 4 MG/ML VIAL ONE ×2 (12:06→14:36)
[2019-11-26] MEDS ORDERED: Ondansetron PF 4 MG/2 ML Vial ONE (12:06)
--- NOTE | 2019-11-26 12:10 | RAD ---
XR Chest 1 View Portable HISTORY: Syncope COMPARISON: 01/20/2019 FINDINGS: The heart size is normal. There is continued elevation of the right hemidiaphragm with mini mal adjacent atelectatic change. The aorta is tortuous. The lungs are well expanded without focal areas of consolidation, pneumothorax or pleural effusions. IMPRESSION: No radiographic evidence of acute cardiopulmonary process.
[2019-11-26 12:12] LABS: #Basophils 0.1 thou/uL (0.0-0.2); #Eosinphils 0.1 thou/uL (0.0-0.7); #Lymphocytes 2.4 thou/uL (1.20-3.40); #Monocytes 0.4 thou/uL (0.11-0.59); %Basophils 1.3 % (0.0-1.0); %Lymphocytes 47.8 % (21.0-51.0); %Monocytes 7.8 % (0.0-10.0); %Neutrophils 41.1 % (42.0-75.0); Hemoglobin 13.7 g/dL (12.0-16.0); Mean Corpuscular HGB CONC 31.9 g/dL (32.0-36.0); Mean Corpuscular Hemoglobin 29.3 pg (27.0-31.0); Mean Corpuscular Volume 91.9 fL (78.0-98.0); Mean Platelet Volume 6.9 fL (7.4-10.4); Platelet Count 286 thou/uL (130-400); RBC Distribution Width 13.1 % (11.5-14.5); Red Blood Cell (RBC) Count 4.65 mill/uL (4.20-5.40); White Blood Cell (WBC) Count 4.9 thou/uL (4.8-10.8)
[2019-11-26 12:38] LABS: Bilirubin Negative (Negative); Blood, Urine Negative (Negative); Clarity Clear (Clear); Glucose, Urine (Dipstick) Normal (Negative); Ketone, Urine Negative (Negative); Leukocyte Negative Leu/uL (Negative); Nitrite Negative (Negative); Protein, Urine (Dipstick) Negative (Neg-Trace); Specific Gravity, Urine 1.014 (1.002-1.036); Urobilinogen Normal mg/dL (Less than 2); pH, Urine 5.5 (5.0-9.0)
[2019-11-26 12:46] LABS: ALT (SGPT) 13 U/L (8-55); AST (SGOT) 22 U/L (5-34); Albumin 4.3 g/dL (3.4-4.8); Alkaline Phosphatase 104 U/L (40-110); Anion Gap 11 mmol/L (10-20); BUN (Urea Nitrogen) 8 mg/dL (9.8-20.1); Calc. Creatinine Clearance 0 mL/min (70-130); Calcium 7.4 mg/dL (7.8-10.44); Carbon Dioxide 26 mmol/L (23-31); Chloride 106 mmol/L (98-107); Estimated GFR-MDRD Greater than 90; Globulin 2.9 g/dL (2.4-3.5); Glucose 80 mg/dL (80-115); Potassium 3.9 mmol/L (3.5-5.1); Protein, Total 7.2 g/dL (6.0-8.3); Sodium 139 mmol/L (136-145)
--- NOTE | 2019-11-26 13:17 | CT ---
CT BRAIN WITHOUT CONTRAST: HISTORY: Syncope COMPARISON: 08/23/2018 FINDINGS: No evidence of acute infarct, hemorrhage, midline shift or abnormal extra-axial fluid collections is seen. Mild chronic small vessel ischemic disease changes are stable. The ventricular size is appropriate and the basilar cisterns are patent. The bony calvarium is intact. The visualized paranas al sinuses and mastoid air cells are well aerated. IMPRESSION: No CT evidence of acute intracranial process.
[2019-11-26] MEDS ORDERED: diphenhydrAMINE 50 MG/ML VIAL ONE (13:50)
--- NOTE | 2019-11-26 14:22 | CT ---
EXAM: CT ABDOMEN AND PELVIS HISTORY: Pain. Diarrhea. COMPARISON: 03/20/2011 Procedure: Multiple contiguous axial images were obtained and a CT of the abdomen and pelvis with IV contrast. C oronal reformats were performed. FINDINGS: Lower Chest: within normal limits. Vessels: Normal caliber aorta. No periaortic fat stranding Heart: Normal heart size. No significant pericardial effusion. Abdomen: Portal vein:Patent Gallbladder: Surgically absent. Dilatation of the intra and extra hepatic biliary system secondary to reservoir effect Liver: within normal limits. Pancreas: Mild atrophy of the pancreas. Spleen: within normal limits. Adrenals: within normal limits. Kidneys: Symmetric enhancement. No obstructive uropathy. Exophytic cyst emanating from the upper pole the right kidney measuring 2.8 x 2.3 cm. Peritoneum: No ascites or free air, no fluid collection. Bowel: Limited evaluation the lack of oral contrast. There is evidence of previous bariatric surgical change. There is evidence of previous right hemicolectomy. Small hiatal hernia. No evidence of a bowel obstruction. There is mucosal prominence of the descending colon, likely due to inadequate dist ention. Nonemergent colonoscopy is recommended. Mesentery and Retroperitoneum: No enlarged mesenteric or retroperitoneal lymph nodes. Abdominal Wall: There is evidence of previous hernia repair. There is a ventral abdominal diastases c ontaining mesenteric fat and small bowel loops. No evidence of bowel herniation. Pelvis: Reproductive Organs: Reproductive organs are unremarkable. Pelvis: No mass, lymphadenopathy, free air or free fluid. Bladder: within normal limits. Bones: No lytic or blastic lesions in the osseous structures. Chronic deformity along the superior en dplate of T12. IMPRESSION: 1. No evidence of bowel obstruction 2. Postsurgical changes compatible with previous bariatric surgery and right hemicolectomy. 3. Ventral abdominal wall diastases. There is evidence of mesentery and small bowel loops through the defect. No evidence of bowel incarceration. 4. Mucosal thickening of the left hemicolon which may be in part due to inadequate distention. Consid er colonoscopy.
--- NOTE | 2019-11-28 14:08 | EKG ---
Test Reason : Blood Pressure : / mmHG Vent. Rate : 078 BPM Atrial Rate : 078 BPM P-R Int : 188 ms QRS Dur : 080 ms QT Int : 428 ms P-R-T Axes : 088 -30 004 degrees QTc Int : 487 ms Normal sinus rhythm Left axis deviation Possible Anterior infarct , age undetermined Abnormal ECG Confirmed by DAYSI NELSON ([id number]), mapping editor CARLA ARCE ([id number]) on 11/28/2019 2:08:01 PM Referred By: Confirmed By:DAYSI Lowe
== END 2019-11-26 14:49 | disposition home or self-care (01) ==
LOC: ERS 10:50
DX: R10.31 Right lower quadrant pain (principal); M19.90 Unspecified osteoarthritis, unspecified site; F32.9 Major depressive disorder, single episode, unspecified; Z79.899 Other long term (current) drug therapy
CPT/HCPCS: 70450; 71045; 74177; 80053; 81003; 85025; 93005; 96374; 96375; 96376; J1200; J2270; J2405

== ENCOUNTER 2020-05-30 10:55 | Observation (INO) | payer MEDICARE ==
[2020-05-30 11:44] LABS: #Basophils 0.1 thou/uL (0.0-0.2); #Eosinphils 0.1 thou/uL (0.0-0.7); #Lymphocytes 2.8 thou/uL (1.20-3.40); #Monocytes 0.7 thou/uL (0.11-0.59); #Neutrophils 3.2 thou/uL (1.40-6.50); %Basophils 1.1 % (0.0-1.0); %Lymphocytes 40.6 % (21.0-51.0); %Monocytes 10.5 % (0.0-10.0); %Neutrophils 46.8 % (42.0-75.0); Mean Corpuscular HGB CONC 32.8 g/dL (32.0-36.0); Mean Corpuscular Hemoglobin 31.8 pg (27.0-31.0); Mean Corpuscular Volume 97.2 fL (78.0-98.0); Platelet Count 278 thou/uL (130-400); Red Blood Cell (RBC) Count 4.08 mill/uL (4.20-5.40); White Blood Cell (WBC) Count 6.9 thou/uL (4.8-10.8)
[2020-05-30 12:20] LABS: CKMB 2.2 ng/mL (0-6.6)
[2020-05-30 12:22] LABS: ALT (SGPT) 17 U/L (8-55); AST (SGOT) 22 U/L (5-34); Albumin 4.3 g/dL (3.4-4.8); Alkaline Phosphatase 50 U/L (40-110); Anion Gap 13 mmol/L (10-20); BUN (Urea Nitrogen) 17 mg/dL (9.8-20.1); Bilirubin, Total 1.2 mg/dL (0.2-1.2); Calc. Creatinine Clearance 0 mL/min (70-130); Calcium 9.2 mg/dL (7.8-10.44); Carbon Dioxide 25 mmol/L (23-31); Chloride 106 mmol/L (98-107); Globulin 2.4 g/dL (2.4-3.5); Glucose 92 mg/dL (80-115); Potassium 4.3 mmol/L (3.5-5.1); Protein, Total 6.7 g/dL (5.8-8.1); Sodium 140 mmol/L (136-145)
[2020-05-30 13:36] LABS: Acetaminophen Less than 6.0 mcg/mL (10.0-30.0); Alcohol Less than 10 mg/dL (Less than 10); CK (CPK) 147 U/L (29-168); Lipase 38 U/L (8-78); Salicylate Less than 8.0 mg/dL (15.0-30.0)
[2020-05-30 13:43] LABS: Amphetamine Not Detected (NotDetected); Barbiturates Screen Not Detected (NotDetected); Benzodiazepine Screen Detected (NotDetected); Cocaine Metabolite Screen Not Detected (NotDetected); Medtox Control Line Valid? VALID (VALID); Medtox Reader # READER 4; Methadone Not Detected (NotDetected); Methamphetamine Not Detected (NotDetected); Opiate Screen Detected (NotDetected); Oxycodone Screen Not Detected (NotDetected); Phencyclidine (PCP) Not Detected (NotDetected); THC/Cannabinoid Screen Not Detected (NotDetected); Tricyclic Screen Not Detected (NotDetected)
[2020-05-30 15:30] LABS: Troponin I Less than 0.010 ng/mL (< 0.028)
[2020-05-30] MEDS ORDERED: hydrALAZINE 20 MG/ML VIAL SLOW IVP PRN (16:33)
[2020-05-30 18:15] LABS: Troponin I Less than 0.010 ng/mL (< 0.028)
[2020-05-30] MEDS ORDERED: Acetaminophen 325 MG TAB ONE ×2 (20:06→20:18)
[2020-05-30 23:15] LABS: Syphilis Antibody Nonreactive (Nonreactive); Syphilis Antibody Index 0.07 S/CO (<1.00 Non-Reactive)
[2020-05-31] MEDS: Atorvastatin Calcium 40 MG TAB PO SCH ×2 (02:10→21:31)
[2020-05-31 02:15] VITALS: BMI 23.9
[2020-05-31 02:28] LABS: SARS-CoV-2 PCR by NAA Not Detected (NotDetected)
[2020-05-31] MEDS ORDERED: Ondansetron PF 4 MG/2 ML Vial IVP PRN (03:17)
[2020-05-31] MEDS ORDERED: Ondansetron PF 4 MG/2 ML Vial IVP SCH (03:30)
[2020-05-31] MEDS ORDERED: rOPINIRole HCl 1 MG TAB PO PRN ×2 (04:12→11:24)
[2020-05-31 06:48] LABS: Cardiac Risk 2.7 (Less than 4.5)
[2020-05-31] MEDS: Enoxaparin Sodium 30 MG/0.3 ML SYRINGE SC SCH (10:29)
[2020-05-31] MEDS: Loperamide HCl 2 MG CAP PO PRN ×2 (10:30→21:31)
[2020-05-31] MEDS ORDERED: Ondansetron ODT 4 MG TAB PO PRN (11:24)
[2020-05-31] MEDS: Aspirin 81 mg Enteric Coated Tablet PO SCH (11:50)
[2020-05-31] MEDS ORDERED: Levothyroxine Sodium 100 MCG TAB PO SCH (12:15)
[2020-05-31] MEDS: Famotidine 20 MG TAB PO SCH (21:31)
[2020-06-01] MEDS ORDERED: Acetaminophen 325 MG TAB PO SCH (05:10)
[2020-06-01] MEDS ORDERED: Levothyroxine Sodium 100 MCG TAB PO SCH (06:00)
[2020-06-01] MEDS ORDERED: Potassium Chloride 10 MEQ TAB PO SCH (09:00)
[2020-06-01] MEDS: Loperamide HCl 2 MG CAP PO PRN (09:34)
[2020-06-01] MEDS: Famotidine 20 MG TAB PO SCH (09:34)
[2020-06-01] MEDS: Enoxaparin Sodium 30 MG/0.3 ML SYRINGE SC SCH (09:34)
[2020-06-01] MEDS: Aspirin 81 mg Enteric Coated Tablet PO SCH (09:35)
[2020-06-01] MEDS ORDERED: levETIRAcetam 500 MG TAB PO SCH ×2 (12:00→21:00)
[2020-06-01 12:07] VITALS: BP 127/75; TEMP 99
[2020-06-03 15:17] LABS: ANA Symphony (Qualitative) Negative (Negative); ANA Symphony (Quantitative) 0.2 Ratio (< 0.7 Negative); dsDNA IgG Antibody 0.6 IU/mL (<10 Negative)
== END 2020-06-01 15:05 | disposition home or self-care (01) ==
LOC: ERS 10:55 → ERHOLD 13:50 → 2SE 05-31 02:04
PROVIDERS: ADMIT Internal Medicine; ATTEND Internal Medicine
DX: R55 Syncope and collapse (principal); R41.82 Altered mental status, unspecified; R56.9 Unspecified convulsions; E03.9 Hypothyroidism, unspecified; G89.29 Other chronic pain; R10.9 Unspecified abdominal pain; D50.9 Iron deficiency anemia, unspecified; M19.90 Unspecified osteoarthritis, unspecified site; Z79.899 Other long term (current) drug therapy; Z88.5 Allergy status to narcotic agent; Z88.6 Allergy status to analgesic agent; Z90.49 Acquired absence of other specified parts of digestive tract; Z98.84 Bariatric surgery status; Z20.822 Contact with and (suspected) exposure to COVID-19
CPT/HCPCS: 70450; 70551; 71045; 73110; 80061; 80177; 80306; 80307; 82140; 82550; 82553; 82607; 82746; 82962 ×2; 83690; 83880; 84146; 84484 ×2; 85379; 86038; 86225; 86780; 87040; 93005; 93306; 95712; 95819; 95957; 99285; U0003; U0005; 36415; 36416; 80053; 84443; 85025; 87635; 96372; 96374; G0378; J1650; J2405; Q0162